=== PATIENT | male | born 1960 | race Two or more races ===

== ENCOUNTER 2018-09-21 14:14 | Inpatient (IN) | payer MEDICAID ==
[~2018-09-21] VITALS: Ht 170.2 cm; Wt 64.6 kg
[2018-09-21] MEDS ORDERED: Thiamine HCl 100 MG in D5W 55 ML IV ONE (14:30)
[2018-09-21] MEDS ORDERED: LORazepam Inj 2mg/ml 1ml IV ONE ×2 (14:30→17:00)
[2018-09-21] MEDS ORDERED: levETIRAcetam 500mg/NS100ml 100 ML IVPB ONE (14:45)
--- NOTE | 2018-09-21 14:54 | Emergency Room Report ---
History of Present Illness General Chief Complaint: Generalized Weakness Source: Patient, EMS Present Illness HPI The patient is brought in by EMS. He's complaining about weakness and tremors. The patient does drink alcohol but stopped on Thursday. He's had withdrawal seizures in the past and is not taking any medication at this time. He also has episodes of vomiting. He denies any hematemesis or coffee-ground emesis. He's been moving his bowels normally and denies melena. He occasionally has epigastric pain but denies this now. The pain in his thighs is rated 6/10 and aching. No radiation. No history of trauma. Allergies: Coded Allergies: No Known Allergies (Unverified , 09/21/18) Patient History Past Medical History: see triage record Social History: Reports: alcohol use Social History Narrative lives with mom Reviewed Nursing Documentation: PMH: Agreed; PSxH: Agreed Nursing Documentation-PM Past Medical History: No Stated History Review of Systems All Other Systems: negative except mentioned in HPI Physical Exam Vital Signs Date Time Temp Pulse Resp B/P (MAP) Pulse Ox O2 Delivery O2 Flow Rate FiO2 09/21/18 14:07 98.4 145 18 142/89 97 Room Air Sp02 EP Interpretation: reviewed, normal General Appearance: well appearing, no apparent distress, GCS 15, non-toxic Head: normocephalic Eyes: bilateral eye normal inspection, bilateral eye PERRL, bilateral eye EOMI ENT: moist mucus membranes Neck: supple Respiratory: lungs clear, normal breath sounds Cardiovascular #1: regular rate, rhythm Cardiovascular #2: 2+ radial (R) Gastrointestinal: normal inspection, normal bowel sounds, non tender, no mass, non-distended Musculoskeletal: back normal, gait/station normal, normal range of motion Neurologic: alert, oriented x3, cellophane tester III-XII nml as tested, motor strength/tone normal, DTRs symmetric, sensory intact, speech normal, other - Tremor Psychiatric: anxious Skin: normal inspection, warm/dry Medical Decision Making Diagnostic Impression: Primary Impression: Alcohol withdrawal Qualified Codes: F10.239 - Alcohol dependence with withdrawal, unspecified Additional Impressions: Alcohol withdrawal seizure Qualified Codes: F10.239 - Alcohol dependence with withdrawal, unspecified; R56.9 - Unspecified convulsions Impending delirium tremons Hyponatremia Thrombocytopenia Pancreatitis Qualified Codes: K85.20 - Alcohol induced acute pancreatitis without necrosis or infection ER Course Patient presents with tremor and weakness after stopping alcohol 3 days ago. Differential includes alcohol withdrawal, impending delirium tremens, electrolyte abnormalities, brain bleed amongst others. Evaluation will be with EKG chest x-ray and labs. The patient retreated with IV hydration, thiamine and Ativan. Patient also complains about leg pain. We need to exclude rhabdomyolysis and renal failure. All the patient was being evaluated the patient had a generalized tonic/clonic seizure. It ended prior to Ativan being given. Ativan was ordered and also Keppra. Because the patient had seizure here a CT of the head is also ordered. EKG without injury. Chest x-ray no infiltrates. CT of the head without bleed. Labs with low sodium. Elevated white count. Platelet count low. Lipase elevated. No infectious etiology identified for elevated white count. Antibiotics not begun. Abdomen is soft and nontender. Patient still tremulous. It appears he is at risk for oriented delirium tremens. Patient is admitted to telemetry under the care of Dr. Melvin. Laboratory Tests Test 09/21/18 15:00 09/21/18 15:05 White Blood Count 15.1 K/UL (4.8-10.8) H Red Blood Count 4.74 M/UL (4.70-6.10) Hemoglobin 11.3 G/DL (14.2-18.0) L Hematocrit 36.7 % (42.0-52.0) L Mean Corpuscular Volume 77 FL (80-99) L Mean Corpuscular Hemoglobin 23.8 PG (27.0-31.0) L Mean Corpuscular Hemoglobin Concent 30.8 G/DL (32.0-36.0) L Red Cell Distribution Width 21.2 % (11.6-14.8) H Platelet Count 89 K/UL (150-450) L Mean Platelet Volume 14.5 FL (6.5-10.1) H Neutrophils (%) (Auto) % (45.0-75.0) Lymphocytes (%) (Auto) % (20.0-45.0) Monocytes (%) (Auto) % (1.0-10.0) Eosinophils (%) (Auto) % (0.0-3.0) Basophils (%) (Auto) % (0.0-2.0) Neutrophils % (Manual) Pending Lymphocytes % (Manual) Pending Platelet Estimate Pending Platelet Morphology Pending Prothrombin Time 12.2 SEC (9.30-11.50) H Prothrombin Time INR 1.2 (0.9-1.1) H PTT 26 SEC (23-33) Sodium Level 122 MMOL/L (136-145) L Potassium Level 3.4 MMOL/L (3.5-5.1) L Chloride Level 83 MMOL/L (98-107) L Carbon Dioxide Level 10 MMOL/L (21-32) L Anion Gap 29 mmol/L (5-15) H Blood Urea Nitrogen 5 mg/dL (7-18) L Creatinine 1.3 MG/DL (0.55-1.30) Estimate Glomerular Filtration Rate 57.1 mL/min (>60) Glucose Level 161 MG/DL (74-106) H Calcium Level 9.5 MG/DL (8.5-10.1) Phosphorus Level 3.9 MG/DL (2.5-4.9) Magnesium Level 2.1 MG/DL (1.8-2.4) Total Bilirubin 2.5 MG/DL (0.2-1.0) H Direct Bilirubin 0.8 MG/DL (0.0-0.3) H Aspartate Amino Transferase (AST) 147 U/L (15-37) H Alanine Aminotransferase (ALT) 86 U/L (12-78) H Alkaline Phosphatase 71 U/L (46-116) Troponin I 0.000 ng/mL (0.000-0.056) Total Protein 8.7 G/DL (6.4-8.2) H Albumin 4.1 G/DL (3.4-5.0) Globulin 4.6 g/dL Albumin/Globulin Ratio 0.9 (1.0-2.7) L Lipase 1124 U/L (73-393) H Salicylates Level < 0.2 ug/mL (2.8-20) L Acetaminophen Level < 2 MCG/ML (10-30) L Serum Alcohol < 3 mg/dL Urine Color Brown Urine Appearance Clear Urine pH 7 (4.5-8.0) Urine Specific [place] 1.010 (1.005-1.035) Urine Protein 2+ (NEGATIVE) H Urine Glucose (UA) Negative (NEGATIVE) Urine Ketones 2+ (NEGATIVE) H Urine Blood 3+ (NEGATIVE) H Urine Nitrite Negative (NEGATIVE) Urine Bilirubin 1+ (NEGATIVE) H Urine Ictotest Negative (NEGATIVE) Urine Urobilinogen 12 MG/DL (0.0-1.0) H Urine Leukocyte Esterase 1+ (NEGATIVE) H Urine RBC 5-10 /HPF (0 - 0) H Urine WBC 2-4 /HPF (0 - 0) Urine Squamous Epithelial Cells None /LPF (NONE/OCC) Urine Amorphous Sediment Few /LPF (NONE) H Urine Bacteria Few /HPF (NONE) Urine Opiates Screen Negative (NEGATIVE) Urine Barbiturates Screen Negative (NEGATIVE) Phencyclidine (PCP) Screen Negative (NEGATIVE) Urine Amphetamines Screen Negative (NEGATIVE) Urine Benzodiazepines Screen Negative (NEGATIVE) Urine Cocaine Screen Negative (NEGATIVE) Urine Marijuana (THC) Screen Negative (NEGATIVE) EKG Diagnostic Results Rate: tachycardiac Rhythm: NSR ST Segments: no acute changes Rhythm Strip Diag. Results EP Interpretation: yes Rhythm: no PVC's, no ectopy, other - Sinus tachycardia Chest X-Ray Diagnostic Results Chest X-Ray Diagnostic Results : Chest X-Ray Ordered: Yes # of Views/Limited/Complete: 1 View Indication: Other EP Interpretation: Yes Interpretation: no consolidation, no effusion, no pneumothorax Impression: No acute disease Electronically Signed by: Electronically signed by Pranav Licona MD CT/MRI/US Diagnostic Results CT/MRI/US Diagnostic Results : Imaging Test Ordered: Head Impression Motion artifact, atrophy with no obvious bleed or mass. Last Vital Signs Date Time Temp Pulse Resp B/P (MAP) Pulse Ox O2 Delivery O2 Flow Rate FiO2 09/22/18 00:00 99.5 93 18 95/64 (74) 99 09/21/18 21:00 Room Air 09/21/18 18:30 4.0 Status: improved Disposition: ADMITTED INPATIENT Condition: Serious Pranav Licona MD Sep 21, 2018 14:54
--- NOTE | 2018-09-21 15:19 | Diagnostic Imaging Report ---
Indication: Dyspnea Comparison: None A single view chest radiograph was obtained. Findings: Cardiomediastinal appearance is within normal limits for age. Aorta is ectatic. The lungs are clear. Pulmonary vascularity is appropriate. The diaphragmatic contour is smooth and costophrenic angles are sharp. No pleural effusions are identified. The bones are unremarkable. Impression: No acute findings
[2018-09-21 15:21] LABS: INR 1.2 (0.9-1.1)
[2018-09-21 15:29] LABS: HEMATOCRIT 36.7 % (42.0-52.0); HEMOGLOBIN 11.3 G/DL (14.2-18.0); MEAN CORPUSCULAR VOLUME 77 FL (80-99); PLATELET COUNT 89 K/UL (150-450); RED BLOOD COUNT 4.74 M/UL (4.70-6.10); RED CELL DISTRIBUTION WIDTH 21.2 % (11.6-14.8); WHITE BLOOD COUNT 15.1 K/UL (4.8-10.8)
[2018-09-21 15:32] VITALS: BP 142/89
[2018-09-21 15:35] LABS: ANION GAP 29 mmol/L (5-15); BLOOD UREA NITROGEN 5 mg/dL (7-18); CALCIUM 9.5 MG/DL (8.5-10.1); CARBON DIOXIDE 10 MMOL/L (21-32); CHLORIDE 83 MMOL/L (98-107); CREATININE 1.3 MG/DL (0.55-1.30); POTASSIUM 3.4 MMOL/L (3.5-5.1); SODIUM 122 MMOL/L (136-145)
--- NOTE | 2018-09-21 15:37 | NUR ---
ED Nurse Note: Pt. AAOx4. brought in by ambulance from home due to generalized weakness with cough X 3days. Pt. had a 2 episodes of sz that lasted [address] Licona notified. padded side rails applied. airway maintained.
[2018-09-21 15:45] LABS: ALANINE AMINOTRANSFERASE 86 U/L (12-78); ALBUMIN 4.1 G/DL (3.4-5.0); ALBUMIN/GLOBULIN RATIO 0.9 (1.0-2.7); ALKALINE PHOSPHATASE 71 U/L (46-116); ASPARTATE AMINO TRANSFERASE 147 U/L (15-37); BILIRUBIN,TOTAL 2.5 MG/DL (0.2-1.0)
[2018-09-21 15:53] LABS: BILIRUBIN,DIRECT 0.8 MG/DL (0.0-0.3)
[2018-09-21 16:10] LABS: APPEARANCE,URINE CLEAR; BILIRUBIN, URINE 1+ (NEGATIVE); COLOR,URINE BROWN; GLUCOSE, URINE (UA) NEGATIVE (NEGATIVE); KETONES,URINE 2+ (NEGATIVE); LEUKOCYTE ESTERASE ,URINE 1+ (NEGATIVE); NITRITE,URINE NEGATIVE (NEGATIVE); PH,URINE 7 (4.5-8.0); PROTEIN,URINE 2+ (NEGATIVE); UROBILINOGEN,URINE 12 MG/DL (0.0-1.0)
[2018-09-21 16:21] LABS: PHOSPHORUS 3.9 MG/DL (2.5-4.9)
--- NOTE | 2018-09-21 16:39 | NUR ---
HAND-OFF: Report given to GWENDOLYN Levine.Endorsed admission process. Patient is in stable condition.
--- NOTE | 2018-09-21 17:08 | Diagnostic Imaging Report ---
Indication: Headache Technique: Contiguous 5 mm thick transaxial imaging of the head obtained in a Siemens Sensation [address] scanner. Soft tissue and bone windows generated. Automatic Exposure Control was utilized. Total Dose length Product (DLP): 1520.[address] Dose Index Volume (CTDIvol): 70.38 mGy Comparison: none Findings: There is mild prominence of the ventricles, basal cisterns, and cerebral sulci consistent with atrophy. Mild, nonspecific, white matter hypoattenuation is noted throughout the brain consistent with chronic small vessel disease. There is no midline shift, edema, acute hemorrhage, mass effect, or abnormal extra-axial fluid collections. Bones and extra osseous soft tissues are unremarkable. There is sclerosis and under pneumatization of the right mastoid bone. Impression: No acute intracranial bleed, mass effect or edema. Mild atrophy of the brain. Nonspecific white matter hypoattenuation probably due to chronic small vessel disease. Right chronic mastoiditis Note: This study is significantly degraded by motion The CT scanner at [facility] is accredited by the [employer] [employer] and the scans are performed using dose optimization techniques as appropriate to a performed exam including Automatic Exposure control.
--- NOTE | 2018-09-21 17:30 | NUR ---
ED Nurse Note: MED SURG NURSE REQUESTING REPORT IN 15MINS.
--- NOTE | 2018-09-21 18:00 | NUR ---
ED Nurse Note: Dr. Melvin at the bedside
[2018-09-21] MEDS ORDERED: NKM (18:15)
[2018-09-21 18:16] VITALS: BP 138/65
--- NOTE | 2018-09-21 18:16 | NUR ---
ED Nurse Note: telephone report given to GWENDOLYN Brannon
--- NOTE | 2018-09-21 18:18 | NUR ---
NURSE NOTES: Received report from GWENDOLYN Shahid in ER.
--- NOTE | 2018-09-21 18:20 | Consultation ---
Consult Note Consult Note asked to eval for low Na The patient is brought in by EMS. He's complaining about weakness and tremors. The patient does drink alcohol but stopped on Thursday. He's had withdrawal seizures in the past and is not taking any medication at this time. He also has episodes of vomiting. He denies any hematemesis or coffee-ground emesis. He's been moving his bowels normally and denies melena. He occasionally has epigastric pain but denies this now. No Known Allergies (Unverified , 09/21/18) Past Medical History: see triage record Social History: Reports: alcohol use Social History Narrative lives with mom Reviewed Nursing Documentation: PMH: Agreed; PSxH: Agreed seen in ER Tachycardic confused Assessment/Plan HypoNatremia Alcoholic liver disease and pancreatitis ETOH Withdraw Sz hydrate librium thiamin monitor lytes and lipase Keppra Folate gastric support Mode Krishnan MD Sep 21, 2018 18:20
[2018-09-21] MEDS ORDERED: chlordiazePOXIDE 25mg Cap ORAL PRN (18:30)
[2018-09-21] MEDS ORDERED: chlordiazePOXIDE 25mg Cap ORAL SCH (18:30)
[2018-09-21 18:40] VITALS: BP 141/70
--- NOTE | 2018-09-21 18:43 | NUR ---
NURSE NOTES: Patient was brought up to TELE Rm [id number] via gurney, denies any pain, no s/s of acute distress noted, monitoring coordinator in place, vital signs taken and recorded. Will endorse admission to the PM shift
--- NOTE | 2018-09-21 19:40 | NUR ---
NURSE NOTES: Received patient from Nikia SNOW. Patient ambulated to the bathroom. Reminded patient to call for help when he needs to go to the bathroom. Assisted patient back in bed. Bed alarm on, bed locked in low position. Side rails padded for seizure precautions. Call light within reach.
[2018-09-21 20:00] VITALS: BP 106/73
--- NOTE | 2018-09-21 20:15 | NUR ---
NURSE NOTES: Patient is still disoriented, does not follow directions. Reminded patient to please use call light for help when he needs to use the bathroom. Librium 50mg PO x1 administered for alcohol withdrawal, patient has mild tremors. Keppra 500mg IV started via left forearm PIV 20 gauge, dressing intact, patent, no s/s of infiltration. Patient on remains on fall precaution and seizure precautions. Side rails padded. Bed in low position, locked, bed alarm on. Call light within reach. Will monitor closely.
[2018-09-21] MEDS: D5NS w/KCl 40mEq 1000ml 1,000 ML IV SCH (20:18)
[2018-09-21] MEDS: levETIRAcetam 500mg/NS100ml 100 ML IVPB SCH (20:26)
[2018-09-21] MEDS ORDERED: Acetaminophen 500mg (ES) tab ORAL PRN (21:45)
[2018-09-21] MEDS: Piperacillin/Tazobactam 3.375 GM in NS 110 ML IVPB SCH (22:43)
--- NOTE | 2018-09-21 22:57 | Consultation ---
History of Present Illness General Date patient seen: Sep 21, 2018 Chief Complaint: AMS/ Weakness Referring physician: Dr. Nitesh Osullivan Present Illness HPI Jasbir Guadarrama is a 58 y old male brought in by EMS in apparent alcohol withdrawal complaining about weakness, tremors and vomiting. He reports that he 's had withdrawal seizures in the past and is not taking any medication at this time. He denies any hematemesis or coffee-ground emesis. He is very drowsy at the time of our exam but has full strength in all extremities. He is however confused about the place, date and circumstances. Allergies: Coded Allergies: No Known Allergies (Unverified , 09/21/18) Medication History Scheduled No Known Medications* (NKM - No Known Medications*), 0 ., (Reported) Patient History Healthcare decision maker Resuscitation status Advanced Directive on File Review of Systems All Other Systems: negative except mentioned in HPI Physical Exam General Appearance: WD/WN, no apparent distress, lethargic, confused Lines, tubes and drains: peripheral HEENT: normocephalic, atraumatic, anicteric, mucous membranes moist, PERRL Neck: normal alignment, supple Cardiovascular/Chest: normal peripheral pulses, normal rate, no JVD Abdomen: soft Extremities: normal range of motion, non-tender, normal inspection, no calf tenderness, normal capillary refill, non-pitting, no edema, no cyanosis Skin Exam: normal pigmentation, warm/dry Neurologic: cattyman II-XII grossly normal, no motor/sensory deficits, responsive, disoriented, depressed affect Last 24 Hour Vital Signs Date Time Temp Pulse Resp B/P (MAP) Pulse Ox O2 Delivery O2 Flow Rate FiO2 09/21/18 20:00 100.0 113 18 106/73 (84) 93 09/21/18 18:40 98.2 114 18 141/70 (93) 97 09/21/18 18:30 98.4 130 22 138/65 95 Room Air 4.0 09/21/18 18:16 98.4 130 22 138/65 95 Room Air 09/21/18 16:20 113 20 94 Nasal Cannula 4.0 09/21/18 15:32 98.4 145 18 142/89 97 Room Air 09/21/18 15:32 145 18 Room Air 09/21/18 14:07 98.4 145 18 142/89 97 Room Air Laboratory Tests Test 09/21/18 15:00 09/21/18 15:05 White Blood Count 15.1 K/UL (4.8-10.8) H Red Blood Count 4.74 M/UL (4.70-6.10) Hemoglobin 11.3 G/DL (14.2-18.0) L Hematocrit 36.7 % (42.0-52.0) L Mean Corpuscular Volume 77 FL (80-99) L Mean Corpuscular Hemoglobin 23.8 PG (27.0-31.0) L Mean Corpuscular Hemoglobin Concent 30.8 G/DL (32.0-36.0) L Red Cell Distribution Width 21.2 % (11.6-14.8) H Platelet Count 89 K/UL (150-450) L Mean Platelet Volume 14.5 FL (6.5-10.1) H Neutrophils (%) (Auto) % (45.0-75.0) Lymphocytes (%) (Auto) % (20.0-45.0) Monocytes (%) (Auto) % (1.0-10.0) Eosinophils (%) (Auto) % (0.0-3.0) Basophils (%) (Auto) % (0.0-2.0) Differential Total Cells Counted 100 Neutrophils % (Manual) 70 % (45-75) Lymphocytes % (Manual) 11 % (20-45) L Monocytes % (Manual) 14 % (1-10) H Eosinophils % (Manual) 2 % (0-3) Basophils % (Manual) 1 % (0-2) Band Neutrophils 2 % (0-8) Platelet Estimate Decreased L Platelet Morphology Normal Hypochromasia 1+ Anisocytosis 1+ Prothrombin Time 12.2 SEC (9.30-11.50) H Prothromb Time International Ratio 1.2 (0.9-1.1) H Activated Partial Thromboplast Time 26 SEC (23-33) Sodium Level 122 MMOL/L (136-145) L Potassium Level 3.4 MMOL/L (3.5-5.1) L Chloride Level 83 MMOL/L (98-107) L Carbon Dioxide Level 10 MMOL/L (21-32) L Anion Gap 29 mmol/L (5-15) H Blood Urea Nitrogen 5 mg/dL (7-18) L Creatinine 1.3 MG/DL (0.55-1.30) Estimat Glomerular Filtration Rate 57.1 mL/min (>60) Glucose Level 161 MG/DL (74-106) H Calcium Level 9.5 MG/DL (8.5-10.1) Phosphorus Level 3.9 MG/DL (2.5-4.9) Magnesium Level 2.1 MG/DL (1.8-2.4) Total Bilirubin 2.5 MG/DL (0.2-1.0) H Direct Bilirubin 0.8 MG/DL (0.0-0.3) H Aspartate Amino Transf (AST/SGOT) 147 U/L (15-37) H Alanine Aminotransferase (ALT/SGPT) 86 U/L (12-78) H Alkaline Phosphatase 71 U/L (46-116) Troponin I 0.000 ng/mL (0.000-0.056) Total Protein 8.7 G/DL (6.4-8.2) H Albumin 4.1 G/DL (3.4-5.0) Globulin 4.6 g/dL Albumin/Globulin Ratio 0.9 (1.0-2.7) L Lipase 1124 U/L (73-393) H Salicylates Level < 0.2 ug/mL (2.8-20) L Acetaminophen Level < 2 MCG/ML (10-30) L Serum Alcohol < 3 mg/dL Urine Color Brown Urine Appearance Clear Urine pH 7 (4.5-8.0) Urine Specific [place] 1.010 (1.005-1.035) Urine Protein 2+ (NEGATIVE) H Urine Glucose (UA) Negative (NEGATIVE) Urine Ketones 2+ (NEGATIVE) H Urine Blood 3+ (NEGATIVE) H Urine Nitrite Negative (NEGATIVE) Urine Bilirubin 1+ (NEGATIVE) H Urine Ictotest Negative (NEGATIVE) Urine Urobilinogen 12 MG/DL (0.0-1.0) H Urine Leukocyte Esterase 1+ (NEGATIVE) H Urine RBC 5-10 /HPF (0 - 0) H Urine WBC 2-4 /HPF (0 - 0) Urine Squamous Epithelial Cells None /LPF (NONE/OCC) Urine Amorphous Sediment Few /LPF (NONE) H Urine Bacteria Few /HPF (NONE) Urine Opiates Screen Negative (NEGATIVE) Urine Barbiturates Screen Negative (NEGATIVE) Phencyclidine (PCP) Screen Negative (NEGATIVE) Urine Amphetamines Screen Negative (NEGATIVE) Urine Benzodiazepines Screen Negative (NEGATIVE) Urine Cocaine Screen Negative (NEGATIVE) Urine Marijuana (THC) Screen Negative (NEGATIVE) Height (Feet): 5 Height (Inches): 7.00 Weight (Pounds): 155 Medications Current Medications Medications (Trade) Dose Ordered Sig/Socrates Route PRN Reason Start Time Stop Time Status Last Admin Dose Admin Acetaminophen (Tylenol) 500 mg Q6H PRN ORAL Mild Pain/Temp of 100.0/higher 09/21/18 21:45 10/21/18 21:44 Chlordiazepoxide (Librium) 25 mg Q6H PRN ORAL Agitation 09/21/18 18:30 09/28/18 18:29 Dextrose/ Electrolytes 1,000 ml @ 100 mls/hr Q10H IV 09/21/18 18:30 10/21/18 18:29 09/21/18 20:18 Famotidine (Pepcid I.v.) 20 mg Q12HR IVP 09/21/18 21:00 10/21/18 20:59 09/21/18 20:42 Folic Acid (Folate) 2 mg DAILY ORAL 09/22/18 09:00 10/22/18 08:59 Levetiracetam 100 ml @ 400 mls/hr Q12HR IVPB 09/21/18 21:00 10/21/18 20:59 09/21/18 20:26 Ondansetron HCl (Zofran) 4 mg Q6H PRN IVP Nausea & Vomiting 09/21/18 20:30 10/21/18 20:29 Piperacillin Sod/ Tazobactam Sod 3.375 gm/Sodium Chloride 110 ml @ 27.5 mls/hr EVERY 8 HOURS IVPB 09/21/18 22:00 09/26/18 21:59 09/21/18 22:43 Assessment/Plan Problem List: (1) Hyponatremia ICD Codes: E87.1 - Hypo-osmolality and hyponatremia SNOMED: 50775708 (2) Alcohol withdrawal seizure ICD Codes: F10.239 - Alcohol dependence with withdrawal, unspecified; R56.9 - Unspecified convulsions SNOMED: 050694447 Qualifiers: Qualified Codes: F10.239 - Alcohol dependence with withdrawal, unspecified; R56.9 - Unspecified convulsions (3) Alcoholic hepatitis ICD Codes: K70.10 - Alcoholic hepatitis without ascites SNOMED: 738058592 (4) Alcoholic pancreatitis ICD Codes: K85.20 - Alcohol induced acute pancreatitis without necrosis or infection SNOMED: 578206923 (5) Alcohol withdrawal ICD Codes: F10.239 - Alcohol dependence with withdrawal, unspecified SNOMED: 922729876 Qualifiers: Qualified Codes: F10.239 - Alcohol dependence with withdrawal, unspecified (6) Pancreatitis ICD Codes: K85.90 - Acute pancreatitis without necrosis or infection, unspecified SNOMED: 81475251 Qualifiers: Qualified Codes: K85.20 - Alcohol induced acute pancreatitis without necrosis or infection Assessment/Plan: 1. Acute Toxic Metabolic Encephalopathy 2. Alcohol W/D 3. Hypothyroidism 4. Hyponatremia Recs: CIWA protocol - If score > 8 - 1mg Ativan Q3 hrs PRN for agitation and withdrawal symptoms. Banana Bag- Thiamine and Folate supplementation 3% Na Bolusing slowly to increase serum sodium. Restrict free water to 1 L per day, rest IVF. Track Trend LFTS/ Ammonia Consider adding Lactulose for improved hepatobiliary excretion Correct Thyroid as per PM/ Endo recs - Levothyroxine supplementation at 1.6mcg/ kg Q 4 Hour neuro obs- Maintain sleep hygiene by making room dark and quiet in the evening. Frequently reorient the patient, if confused Encourage family/ friend visits Soraya Donis N.P. Sep 21, 2018 22:57
[2018-09-22] VITALS: BP 95/64
[2018-09-22 04:00] VITALS: BP 140/63
--- NOTE | 2018-09-22 04:00 | NUR ---
NURSE NOTES: Pt keeps trying to get out of bed every 5-10 minutes. Pt wants to leave and wants to pull out his IV. Keep reorienting patient to location and why he is here and why he can't leave.
[2018-09-22] MEDS: D5NS w/KCl 40mEq 1000ml 1,000 ML IV SCH ×2 (05:13→14:18)
[2018-09-22] MEDS: Piperacillin/Tazobactam 3.375 GM in NS 110 ML IVPB SCH ×3 (05:13→21:49)
--- NOTE | 2018-09-22 06:20 | NUR ---
NURSE NOTES: Spoke to Dr. Melvin about pt behavior. Pt is trying to stand up and leave every 5-10 minutes. He says he has to go to work, but cannnot tell us where he works. He also cannot tell us anyone we can call for him, no family, no friends. Whenever he stands up, he is very unsteady and almost falls. Pt is getting very upset that he can't leave. Dr. Melvin ordered 1:1 sitter and to call Dr. Burr about pt's behavior.
[2018-09-22 06:41] LABS: HEMATOCRIT 31.7 % (42.0-52.0); HEMOGLOBIN 9.8 G/DL (14.2-18.0); MEAN CORPUSCULAR VOLUME 77 FL (80-99); PLATELET COUNT 70 K/UL (150-450); RED BLOOD COUNT 4.14 M/UL (4.70-6.10); RED CELL DISTRIBUTION WIDTH 21.5 % (11.6-14.8)
[2018-09-22 06:59] LABS: AMMONIA 26 umol/L (11-32)
--- NOTE | 2018-09-22 07:10 | NUR ---
HAND-OFF: Report given to Nikia SNOW. Plan of care endorsed, patient in stable condition.
--- NOTE | 2018-09-22 07:10 | NUR ---
NURSE NOTES: Received report and patient from Sayra, GWENDOLYN in bed, denies any pain at this time, no s/s of sob or any acute distress noted, Patient complain of loosing her robe, explained to her that the outgoing nurse has started the process to look for her robe, also that I will follow up and update her as the day goes on. Bed is in lowest position, brakes engaged for safety. Call light is within reach. Will continue with the plan of care. Addendum: 09/22/18 at 1831 by HERLINDA LEWIS RN wrong patient.
--- NOTE | 2018-09-22 07:10 | NUR ---
NURSE NOTES: Received patient from Brandon RN's in bed agitated, confused, pulling equipments and trying to get out of bed, reoriented patient, talk with patient, but continues to pull things, got out of bed, total fall risk. Patient pulled IV out, will insert another one. Patient was carried back to bed. Bed is in lowest position, brakes engaged for safety, call light is within reach. Will continue to monitor for safety and continue with the plan of care.
[2018-09-22 07:20] LABS: ALANINE AMINOTRANSFERASE 75 U/L (12-78); ALBUMIN 3.3 G/DL (3.4-5.0); ALBUMIN/GLOBULIN RATIO 0.8 (1.0-2.7); ALKALINE PHOSPHATASE 53 U/L (46-116); ANION GAP 10 mmol/L (5-15); ASPARTATE AMINO TRANSFERASE 135 U/L (15-37); BILIRUBIN,TOTAL 2.6 MG/DL (0.2-1.0); BLOOD UREA NITROGEN 4 mg/dL (7-18); CALCIUM 8.4 MG/DL (8.5-10.1); CARBON DIOXIDE 23 MMOL/L (21-32); CHLORIDE 97 MMOL/L (98-107); CHOLESTEROL 116 MG/DL (< 200); CREATINE KINASE 1869 U/L (26-308); FERRITIN 48 NG/ML (8-388); GAMMA GLUTAMYL TRANSPEPTIDASE 466 U/L (5-85); HDL CHOLESTEROL 44 MG/DL (40-60); PHOSPHORUS 2.1 MG/DL (2.5-4.9); POTASSIUM 3.6 MMOL/L (3.5-5.1); SODIUM 130 MMOL/L (136-145); TRIGLYCERIDES 74 MG/DL (30-150)
[2018-09-22 07:25] LABS: BILIRUBIN,DIRECT 1.2 MG/DL (0.0-0.3)
[2018-09-22 07:35] LABS: % IRON SATURATION 15 % (15-50); IRON 41 ug/dL (50-175); TOTAL IRON BINDING CAPACITY 281 ug/dL (250-450)
[2018-09-22 08:00] VITALS: BP 115/69
--- NOTE | 2018-09-22 08:30 | NUR ---
NEW IV IN PLACE ON RIGHT HAND
[2018-09-22] MEDS ORDERED: LORazepam Inj 2mg/ml 1ml IV PRN ×2 (08:45)
[2018-09-22] MEDS: LORazepam Inj 2mg/ml 1ml IV PRN ×2 (09:04→21:46)
[2018-09-22] MEDS: levETIRAcetam 500mg/NS100ml 100 ML IVPB SCH ×2 (09:05→21:48)
--- NOTE | 2018-09-22 09:15 | NUR ---
NURSE NOTES: PATIENT REMOVED IV , VERY CONFUSED, AGITATED, PULLING, AND TRYING TO GET OUT OF BED, MD AWARE. WILL CONTINUE TO MONITOR.
[2018-09-22] MEDS ORDERED: Potassium Phosphate 20 MM in NS 275 ML IV SCH (10:00)
--- NOTE | 2018-09-22 10:08 | Nephrology Progress Note ---
Assessment/Plan Problem List: (1) Hyponatremia (2) Pancreatitis (3) Alcohol withdrawal seizure (4) Anemia Assessment HypoNatremia Alcoholic liver disease and pancreatitis ETOH Withdraw Sz Plan hydrate librium thiamin monitor lytes and lipase Keppra Folate gastric support Subjective ROS Limited/Unobtainable: No Objective Objective Last 24 Hour Vital Signs Date Time Temp Pulse Resp B/P (MAP) Pulse Ox O2 Delivery O2 Flow Rate FiO2 09/22/18 04:00 91 09/22/18 04:00 98.7 7 18 140/63 (88) 98 09/22/18 00:00 99.5 93 18 95/64 (74) 99 09/22/18 00:00 100 09/21/18 21:00 Room Air 09/21/18 20:00 111 09/21/18 20:00 100.0 113 18 106/73 (84) 93 09/21/18 18:40 98.2 114 18 141/70 (93) 97 09/21/18 18:30 98.4 130 22 138/65 95 Room Air 4.0 09/21/18 18:16 98.4 130 22 138/65 95 Room Air 09/21/18 16:20 113 20 94 Nasal Cannula 4.0 09/21/18 15:32 98.4 145 18 142/89 97 Room Air 09/21/18 15:32 145 18 Room Air 09/21/18 14:07 98.4 145 18 142/89 97 Room Air Intake and Output 09/21/18 09/22/18 18:59 06:59 Intake Total 1085 ml Balance 1085 ml Intake IV Total 1085 ml # Voids 1 10 Laboratory Tests 09/21/18 15:00: White Blood Count 15.1H, Red Blood Count 4.74, Hemoglobin 11.3L, Hematocrit 36.7L, Mean Corpuscular Volume 77L, Mean Corpuscular Hemoglobin 23.8L, Mean Corpuscular Hemoglobin Concent 30.8L, Red Cell Distribution Width 21.2H, Platelet Count 89L, Mean Platelet Volume 14.5H, Neutrophils (%) (Auto) , Lymphocytes (%) (Auto) , Monocytes (%) (Auto) , Eosinophils (%) (Auto) , Basophils (%) (Auto) , Differential Total Cells Counted 100, Neutrophils % ( Manual) 70, Lymphocytes % (Manual) 11L, Monocytes % (Manual) 14H, Eosinophils % (Manual) 2, Basophils % (Manual) 1, Band Neutrophils 2, Platelet Estimate DecreasedL, Platelet Morphology Normal, Hypochromasia 1+, Anisocytosis 1+, Prothrombin Time 12.2H, Prothromb Time International Ratio 1.2H, Activated Partial Thromboplast Time 26, Sodium Level 122L, Potassium Level 3.4L, Chloride Level 83L, Carbon Dioxide Level 10L, Anion Gap 29H, Blood Urea Nitrogen 5L, Creatinine 1.3, Estimat Glomerular Filtration Rate 57.1, Glucose Level 161H, Calcium Level 9.5, Phosphorus Level 3.9, Magnesium Level 2.1, Total Bilirubin 2.5H, Direct Bilirubin 0.8H, Aspartate Amino Transf (AST/SGOT) 147H, Alanine Aminotransferase (ALT/SGPT) 86H, Alkaline Phosphatase 71, Troponin I 0.000, Total Protein 8.7H, Albumin 4.1, Globulin 4.6, Albumin/Globulin Ratio 0.9L, Lipase 1124H, Salicylates Level < 0.2L, Acetaminophen Level < 2L, Serum Alcohol < 3 09/21/18 15:05: Urine Color Brown, Urine Appearance Clear, Urine pH 7, Urine Specific [place] 1.010, Urine Protein 2+H, Urine Glucose (UA) Negative, Urine Ketones 2+H, Urine Blood 3+H, Urine Nitrite Negative, Urine Bilirubin 1+H, Urine Ictotest Negative , Urine Urobilinogen 12H, Urine Leukocyte Esterase 1+H, Urine RBC 5-10H, Urine WBC 2-4, Urine Squamous Epithelial Cells None, Urine Amorphous Sediment FewH, Urine Bacteria Few, Urine Opiates Screen Negative, Urine Barbiturates Screen Negative, Phencyclidine (PCP) Screen Negative, Urine Amphetamines Screen Negative, Urine Benzodiazepines Screen Negative, Urine Cocaine Screen Negative, Urine Marijuana (THC) Screen Negative 09/22/18 06:14: White Blood Count 12.0H, Red Blood Count 4.14L, Hemoglobin 9.8L, Hematocrit 31.7L, Mean Corpuscular Volume 77L, Mean Corpuscular Hemoglobin 23.6L, Mean Corpuscular Hemoglobin Concent 30.8L, Red Cell Distribution Width 21.5H, Platelet Count 70L, Mean Platelet Volume 15.8H, Neutrophils (%) (Auto) , Lymphocytes (%) (Auto) , Monocytes (%) (Auto) , Eosinophils (%) (Auto) , Basophils (%) (Auto) , Differential Total Cells Counted 100, Neutrophils % ( Manual) 84H, Lymphocytes % (Manual) 5L, Monocytes % (Manual) 11H, Eosinophils % (Manual) 0, Basophils % (Manual) 0, Band Neutrophils 0, Platelet Estimate DecreasedL, Platelet Morphology Normal, Hypochromasia 1+, Anisocytosis 2+, Sodium Level 130L, Potassium Level 3.6, Chloride Level 97L, Carbon Dioxide Level 23, Anion Gap 10, Blood Urea Nitrogen 4L, Creatinine 1.0, Estimat Glomerular Filtration Rate > 60, Glucose Level 99, Calcium Level 8.4L, Phosphorus Level 2.1L, Magnesium Level 2.3, Total Bilirubin 2.6H, Direct Bilirubin 1.2H, Aspartate Amino Transf (AST/SGOT) 135H, Alanine Aminotransferase (ALT/SGPT) 75, Alkaline Phosphatase 53, Total Protein 7.4, Albumin 3.3L, Globulin 4.1, Albumin/Globulin Ratio 0.8L, Lipase 521H, Microcytosis 1+, Hemoglobin A1c 5.5, Uric Acid 3.0, Iron Level 41L, Total Iron Binding Capacity 281, Percent Iron Saturation 15, Unsaturated Iron Binding 240, Ferritin 48, Gamma Glutamyl Transpeptidase 466H, Ammonia 26, Total Creatine Kinase 1869H, C-Reactive Protein, Quantitative 3.3H, Pro-B-Type Natriuretic Peptide 370H, Triglycerides Level 74, Cholesterol Level 116, LDL Cholesterol 63 , HDL Cholesterol 44, Cholesterol/HDL Ratio 2.6L, Vitamin B12 Level 834, Folate 7.1L, Thyroid Stimulating Hormone (TSH) 4.007H Height (Feet): 5 Height (Inches): 7.00 Weight (Pounds): 150 General Appearance: agitated Cardiovascular: tachycardia Respiratory/Chest: decreased breath sounds Abdomen: distended Mode Krishnan MD September 22, 2018 10:08
[2018-09-22] MEDS ORDERED: Propranolol 10mg tab ORAL SCH (10:15)
[2018-09-22] MEDS ORDERED: LORazepam Inj 2mg/ml 1ml IV SCH (10:15)
--- NOTE | 2018-09-22 10:23 | GI Initial Consult Note ---
History of Present Illness General Date patient seen: September 22, 2018 Time patient seen: 10:17 Reason for Hospitalization: Generalized Weakness Referring physician: PAT KIM Reason for Consultation: Alcoholic hepatitis Present Illness HPI The patient is brought in by EMS. He's complaining about weakness and tremors. The patient does drink alcohol but stopped on Thursday. He's had withdrawal seizures in the past and is not taking any medication at this time. He also has episodes of vomiting. He denies any hematemesis or coffee-ground emesis. He's been moving his bowels normally and denies melena. He occasionally has epigastric pain but denies this now. The pain in his thighs is rated 6/10 and aching. No radiation. No history of trauma. GI consulted for alcoholic hepatitis and pancreatitis. ROS limited, patient is agitated unable to provide any history at this time. Labs reviewed; hemoglobin 9.8, INR 1.2, AST 466, ALT 135, total bilirubin 2.6, lipase level 500 +, folate level within 1.1. Unknown history of endoscopic colonoscopy at this time. Home Meds Reported Medications No Known Medications* (NKM - No Known Medications*) ., 0 ., 0 Refills 09/21/18 Med list reviewed/reconciled: Yes Allergies: Coded Allergies: No Known Allergies (Unverified , 09/21/18) Patient History Limited by: medical condition History Provided By: Medical Record PM Narrative Past Medical History: see triage record Social History: Reports: alcohol use Social History Narrative lives with mom Reviewed Nursing Documentation: PMH: Agreed; PSxH: Agreed Nursing Documentation-[facility] Past Medical History: No Stated History Social History: Reports: alcohol use Review of Systems All Other Systems: negative except mentioned in HPI Physical Exam Vital Signs Date Time Temp Pulse Resp B/P (MAP) Pulse Ox O2 Delivery O2 Flow Rate FiO2 09/21/18 14:07 98.4 145 18 142/89 97 Room Air 09/21/18 16:20 4.0 Sp02 EP Interpretation: reviewed, normal Labs Laboratory Tests Test 09/21/18 15:00 09/21/18 15:05 09/22/18 06:14 White Blood Count 15.1 K/UL (4.8-10.8) H 12.0 K/UL (4.8-10.8) H Red Blood Count 4.74 M/UL (4.70-6.10) 4.14 M/UL (4.70-6.10) L Hemoglobin 11.3 G/DL (14.2-18.0) L 9.8 G/DL (14.2-18.0) L Hematocrit 36.7 % (42.0-52.0) L 31.7 % (42.0-52.0) L Mean Corpuscular Volume 77 FL (80-99) L 77 FL (80-99) L Mean Corpuscular Hemoglobin 23.8 PG (27.0-31.0) L 23.6 PG (27.0-31.0) L Mean Corpuscular Hemoglobin Concent 30.8 G/DL (32.0-36.0) L 30.8 G/DL (32.0-36.0) L Red Cell Distribution Width 21.2 % (11.6-14.8) H 21.5 % (11.6-14.8) H Platelet Count 89 K/UL (150-450) L 70 K/UL (150-450) L Mean Platelet Volume 14.5 FL (6.5-10.1) H 15.8 FL (6.5-10.1) H Neutrophils (%) (Auto) % (45.0-75.0) % (45.0-75.0) Lymphocytes (%) (Auto) % (20.0-45.0) % (20.0-45.0) Monocytes (%) (Auto) % (1.0-10.0) % (1.0-10.0) Eosinophils (%) (Auto) % (0.0-3.0) % (0.0-3.0) Basophils (%) (Auto) % (0.0-2.0) % (0.0-2.0) Differential Total Cells Counted 100 100 Neutrophils % (Manual) 70 % (45-75) 84 % (45-75) H Lymphocytes % (Manual) 11 % (20-45) L 5 % (20-45) L Monocytes % (Manual) 14 % (1-10) H 11 % (1-10) H Eosinophils % (Manual) 2 % (0-3) 0 % (0-3) Basophils % (Manual) 1 % (0-2) 0 % (0-2) Band Neutrophils 2 % (0-8) 0 % (0-8) Platelet Estimate Decreased L Decreased L Platelet Morphology Normal Normal Hypochromasia 1+ 1+ Anisocytosis 1+ 2+ Prothrombin Time 12.2 SEC (9.30-11.50) H Prothromb Time International Ratio 1.2 (0.9-1.1) H Activated Partial Thromboplast Time 26 SEC (23-33) Sodium Level 122 MMOL/L (136-145) L 130 MMOL/L (136-145) L Potassium Level 3.4 MMOL/L (3.5-5.1) L 3.6 MMOL/L (3.5-5.1) Chloride Level 83 MMOL/L (98-107) L 97 MMOL/L (98-107) L Carbon Dioxide Level 10 MMOL/L (21-32) L 23 MMOL/L (21-32) Anion Gap 29 mmol/L (5-15) H 10 mmol/L (5-15) Blood Urea Nitrogen 5 mg/dL (7-18) L 4 mg/dL (7-18) L Creatinine 1.3 MG/DL (0.55-1.30) 1.0 MG/DL (0.55-1.30) Estimat Glomerular Filtration Rate 57.1 mL/min (>60) > 60 mL/min (>60) Glucose Level 161 MG/DL (74-106) H 99 MG/DL (74-106) Calcium Level 9.5 MG/DL (8.5-10.1) 8.4 MG/DL (8.5-10.1) L Phosphorus Level 3.9 MG/DL (2.5-4.9) 2.1 MG/DL (2.5-4.9) L Magnesium Level 2.1 MG/DL (1.8-2.4) 2.3 MG/DL (1.8-2.4) Total Bilirubin 2.5 MG/DL (0.2-1.0) H 2.6 MG/DL (0.2-1.0) H Direct Bilirubin 0.8 MG/DL (0.0-0.3) H 1.2 MG/DL (0.0-0.3) H Aspartate Amino Transf (AST/SGOT) 147 U/L (15-37) H 135 U/L (15-37) H Alanine Aminotransferase (ALT/SGPT) 86 U/L (12-78) H 75 U/L (12-78) Alkaline Phosphatase 71 U/L (46-116) 53 U/L (46-116) Troponin I 0.000 ng/mL (0.000-0.056) Total Protein 8.7 G/DL (6.4-8.2) H 7.4 G/DL (6.4-8.2) Albumin 4.1 G/DL (3.4-5.0) 3.3 G/DL (3.4-5.0) L Globulin 4.6 g/dL 4.1 g/dL Albumin/Globulin Ratio 0.9 (1.0-2.7) L 0.8 (1.0-2.7) L Lipase 1124 U/L (73-393) H 521 U/L (73-393) H Salicylates Level < 0.2 ug/mL (2.8-20) L Acetaminophen Level < 2 MCG/ML (10-30) L Serum Alcohol < 3 mg/dL Urine Color Brown Urine Appearance Clear Urine pH 7 (4.5-8.0) Urine Specific [place] 1.010 (1.005-1.035) Urine Protein 2+ (NEGATIVE) H Urine Glucose (UA) Negative (NEGATIVE) Urine Ketones 2+ (NEGATIVE) H Urine Blood 3+ (NEGATIVE) H Urine Nitrite Negative (NEGATIVE) Urine Bilirubin 1+ (NEGATIVE) H Urine Ictotest Negative (NEGATIVE) Urine Urobilinogen 12 MG/DL (0.0-1.0) H Urine Leukocyte Esterase 1+ (NEGATIVE) H Urine RBC 5-10 /HPF (0 - 0) H Urine WBC 2-4 /HPF (0 - 0) Urine Squamous Epithelial Cells None /LPF (NONE/OCC) Urine Amorphous Sediment Few /LPF (NONE) H Urine Bacteria Few /HPF (NONE) Urine Opiates Screen Negative (NEGATIVE) Urine Barbiturates Screen Negative (NEGATIVE) Phencyclidine (PCP) Screen Negative (NEGATIVE) Urine Amphetamines Screen Negative (NEGATIVE) Urine Benzodiazepines Screen Negative (NEGATIVE) Urine Cocaine Screen Negative (NEGATIVE) Urine Marijuana (THC) Screen Negative (NEGATIVE) Microcytosis 1+ Hemoglobin A1c 5.5 % (4.3-6.0) Uric Acid 3.0 MG/DL (2.6-7.2) Iron Level 41 ug/dL (50-175) L Total Iron Binding Capacity 281 ug/dL (250-450) Percent Iron Saturation 15 % (15-50) Unsaturated Iron Binding 240 ug/dL (112-346) Ferritin 48 NG/ML (8-388) Gamma Glutamyl Transpeptidase 466 U/L (5-85) H Ammonia 26 umol/L (11-32) Total Creatine Kinase 1869 U/L (26-308) H C-Reactive Protein, Quantitative 3.3 mg/dL (0.00-0.90) H Pro-B-Type Natriuretic Peptide 370 pg/mL (0-125) H Triglycerides Level 74 MG/DL (30-150) Cholesterol Level 116 MG/DL (< 200) LDL Cholesterol 63 mg/dL (<100) HDL Cholesterol 44 MG/DL (40-60) Cholesterol/HDL Ratio 2.6 (3.3-4.4) L Vitamin B12 Level 834 PG/ML (193-986) Folate 7.1 NG/ML (8.6-58.9) L Thyroid Stimulating Hormone (TSH) 4.007 uiU/mL (0.358-3.740) General Appearance: well appearing, no apparent distress, alert Head: normocephalic EENT: PERRL/EOMI, normal ENT inspection Neck: supple Respiratory: normal breath sounds, no respiratory distress Cardiovascular: normal rate Gastrointestinal: normal inspection, non tender, soft, normal bowel sounds, non -distended Rectal: deferred Genitourinary: deferred Musculoskeletal: normal inspection, back normal Neurologic: normal inspection, alert, oriented x3, responsive Psychiatric: normal inspection, judgement/insight normal, memory normal Skin: normal inspection, normal color, no rash, warm/dry, palpation normal, well hydrated Lymphatic: normal inspection, no adenopathy Current Medications Current Medications Medications (Trade) Dose Ordered Sig/Socrates Route PRN Reason Start Time Stop Time Status Last Admin Dose Admin Acetaminophen (Tylenol) 500 mg Q6H PRN ORAL Mild Pain/Temp of 100.0/higher 09/21/18 21:45 10/21/18 21:44 Chlordiazepoxide (Librium) 25 mg Q6H ORAL 09/22/18 12:30 09/28/18 18:29 Dextrose/ Electrolytes 1,000 ml @ 100 mls/hr Q10H IV 09/21/18 18:30 10/21/18 18:29 09/22/18 05:13 Famotidine (Pepcid I.v.) 20 mg Q12HR IVP 09/21/18 21:00 10/21/18 20:59 09/21/18 20:42 Folic Acid (Folate) 2 mg DAILY ORAL 09/22/18 09:00 10/22/18 08:59 09/22/18 09:04 Levetiracetam 100 ml @ 400 mls/hr Q12HR IVPB 09/21/18 21:00 10/21/18 20:59 09/22/18 09:05 Lorazepam (Ativan 2mg/ml 1ml) 2 mg ONCE IV 09/22/18 10:15 09/22/18 11:00 Lorazepam (Ativan 2mg/ml 1ml) 2 mg Q2H PRN IV for agitation 09/22/18 08:45 09/29/18 08:44 09/22/18 09:04 Ondansetron HCl (Zofran) 4 mg Q6H PRN IVP Nausea & Vomiting 09/21/18 20:30 10/21/18 20:29 Piperacillin Sod/ Tazobactam Sod 3.375 gm/Sodium Chloride 110 ml @ 27.5 mls/hr EVERY 8 HOURS IVPB 09/21/18 22:00 09/26/18 21:59 09/22/18 05:13 Potassium Phosphate 20 mm/ Sodium Chloride 281.6667 ml @ 46.944 m... ONCE IV 09/22/18 10:00 09/22/18 16:00 Propranolol HCl (Inderal) 10 mg ONCE ORAL 09/22/18 10:15 09/22/18 11:00 Propranolol HCl (Inderal) 10 mg Q8HR ORAL 09/22/18 14:00 10/22/18 13:59 GI: Plan Problems: (1) Alcoholic pancreatitis (2) Alcoholic hepatitis (3) Alcohol withdrawal (4) Thrombocytopenia (5) Anemia Plan Discriminant function calculated, no need for glucocorticoid therapy. Advance diet as tolerated Ativan as needed Folate anemia work up OB stool r/o GI bleed monitor H&H, prn transfusions bowel regime ppi fu labs avoid alcohol trend LFTs, lipase Discussed with Dr. Wright. Thank you for this patient referral, we will follow. The patient was seen and examined at bedside and all new and available data was reviewed in the patients chart. I agree with the above findings, impression and plan. (Patient seen earlier today. Signature stamp does not reflect patient encounter time.). - MD Jose Rafael St[facility]uyotiliaAur[facility] HospitalMoraMontana GANGA September 22, 2018 10:23
--- NOTE | 2018-09-22 11:00 | NUR ---
NURSE NOTES: PATIENT CONTINUES TO BE AGITATED AND TRYING TO GET OUT OF BED.
[2018-09-22 12:00] VITALS: BP 118/69
[2018-09-22] MEDS ORDERED: chlordiazePOXIDE 25mg Cap ORAL SCH ×2 (12:30→13:15)
--- NOTE | 2018-09-22 12:55 | NUR ---
CASE MANAGEMENT:REVIEW 58 YR OLD MALE BIBA FROM HOME CC: GENERALIZED WEAKNESS. BODY PAIN SI: ALCOHOL WITHDRAWALS. SEIZURE PANCREATITIS 98.5 145 18 142/89 97% ON RA WBC+15.1 PLT-89 NA-122 BUN+29 LIPASE+1124 IS: IV ATIVAN 1L NS BOLUS IV THIAMINE IV KEPPRA CT HEAD CXR : TO TELEMETRY INTERQUAL CRITERIA MET
[2018-09-22] MEDS ORDERED: LORazepam Inj 2mg/ml 1ml IM SCH (13:00)
[2018-09-22] MEDS ORDERED: DiphenhydrAMINE 50mg/ml Inj IM SCH (13:00)
[2018-09-22] MEDS ORDERED: Haloperidol 5mg/ml Inj IM SCH (13:00)
--- NOTE | 2018-09-22 13:00 | NUR ---
NURSE NOTES: STILL CAN'T PLACE AN IV ON THE PATIENT, MD AWARE. WILL CONTINUE TO MONITOR PATIENT.
[2018-09-22] MEDS: Propranolol 10mg tab ORAL SCH ×2 (13:48→21:47)
--- NOTE | 2018-09-22 14:52 | Consultation ---
History of Present Illness General Chief Complaint: Generalized Weakness Referring physician: PAT KIM Reason for Consultation: Alcoholic hepatitis Present Illness Allergies: Coded Allergies: No Known Allergies (Unverified , 09/21/18) Medication History Scheduled No Known Medications* (NKM - No Known Medications*), 0 ., (Reported) Patient History Healthcare decision maker Resuscitation status Full Code Advanced Directive on File Physical Exam Last 24 Hour Vital Signs Date Time Temp Pulse Resp B/P (MAP) Pulse Ox O2 Delivery O2 Flow Rate FiO2 09/22/18 13:48 97 118/69 09/22/18 12:00 98.4 97 18 118/69 (85) 99 09/22/18 10:31 98 115/69 09/22/18 09:00 Room Air 09/22/18 08:00 86 09/22/18 08:00 97.0 98 18 115/69 (84) 97 09/22/18 04:00 91 09/22/18 04:00 98.7 7 18 140/63 (88) 98 09/22/18 00:00 99.5 93 18 95/64 (74) 99 09/22/18 00:00 100 09/21/18 21:00 Room Air 09/21/18 20:00 111 09/21/18 20:00 100.0 113 18 106/73 (84) 93 09/21/18 18:40 98.2 114 18 141/70 (93) 97 09/21/18 18:30 98.4 130 22 138/65 95 Room Air 4.0 09/21/18 18:16 98.4 130 22 138/65 95 Room Air 09/21/18 16:20 113 20 94 Nasal Cannula 4.0 09/21/18 15:32 98.4 145 18 142/89 97 Room Air 09/21/18 15:32 145 18 Room Air Intake and Output 09/21/18 09/22/18 18:59 06:59 Intake Total 1085 ml Balance 1085 ml Intake IV Total 1085 ml # Voids 1 10 Laboratory Tests Test 09/21/18 15:00 09/21/18 15:05 09/22/18 06:14 White Blood Count 15.1 K/UL (4.8-10.8) H 12.0 K/UL (4.8-10.8) H Red Blood Count 4.74 M/UL (4.70-6.10) 4.14 M/UL (4.70-6.10) L Hemoglobin 11.3 G/DL (14.2-18.0) L 9.8 G/DL (14.2-18.0) L Hematocrit 36.7 % (42.0-52.0) L 31.7 % (42.0-52.0) L Mean Corpuscular Volume 77 FL (80-99) L 77 FL (80-99) L Mean Corpuscular Hemoglobin 23.8 PG (27.0-31.0) L 23.6 PG (27.0-31.0) L Mean Corpuscular Hemoglobin Concent 30.8 G/DL (32.0-36.0) L 30.8 G/DL (32.0-36.0) L Red Cell Distribution Width 21.2 % (11.6-14.8) H 21.5 % (11.6-14.8) H Platelet Count 89 K/UL (150-450) L 70 K/UL (150-450) L Mean Platelet Volume 14.5 FL (6.5-10.1) H 15.8 FL (6.5-10.1) H Neutrophils (%) (Auto) % (45.0-75.0) % (45.0-75.0) Lymphocytes (%) (Auto) % (20.0-45.0) % (20.0-45.0) Monocytes (%) (Auto) % (1.0-10.0) % (1.0-10.0) Eosinophils (%) (Auto) % (0.0-3.0) % (0.0-3.0) Basophils (%) (Auto) % (0.0-2.0) % (0.0-2.0) Differential Total Cells Counted 100 100 Neutrophils % (Manual) 70 % (45-75) 84 % (45-75) H Lymphocytes % (Manual) 11 % (20-45) L 5 % (20-45) L Monocytes % (Manual) 14 % (1-10) H 11 % (1-10) H Eosinophils % (Manual) 2 % (0-3) 0 % (0-3) Basophils % (Manual) 1 % (0-2) 0 % (0-2) Band Neutrophils 2 % (0-8) 0 % (0-8) Platelet Estimate Decreased L Decreased L Platelet Morphology Normal Normal Hypochromasia 1+ 1+ Anisocytosis 1+ 2+ Prothrombin Time 12.2 SEC (9.30-11.50) H Prothromb Time International Ratio 1.2 (0.9-1.1) H Activated Partial Thromboplast Time 26 SEC (23-33) Sodium Level 122 MMOL/L (136-145) L 130 MMOL/L (136-145) L Potassium Level 3.4 MMOL/L (3.5-5.1) L 3.6 MMOL/L (3.5-5.1) Chloride Level 83 MMOL/L (98-107) L 97 MMOL/L (98-107) L Carbon Dioxide Level 10 MMOL/L (21-32) L 23 MMOL/L (21-32) Anion Gap 29 mmol/L (5-15) H 10 mmol/L (5-15) Blood Urea Nitrogen 5 mg/dL (7-18) L 4 mg/dL (7-18) L Creatinine 1.3 MG/DL (0.55-1.30) 1.0 MG/DL (0.55-1.30) Estimat Glomerular Filtration Rate 57.1 mL/min (>60) > 60 mL/min (>60) Glucose Level 161 MG/DL (74-106) H 99 MG/DL (74-106) Calcium Level 9.5 MG/DL (8.5-10.1) 8.4 MG/DL (8.5-10.1) L Phosphorus Level 3.9 MG/DL (2.5-4.9) 2.1 MG/DL (2.5-4.9) L Magnesium Level 2.1 MG/DL (1.8-2.4) 2.3 MG/DL (1.8-2.4) Total Bilirubin 2.5 MG/DL (0.2-1.0) H 2.6 MG/DL (0.2-1.0) H Direct Bilirubin 0.8 MG/DL (0.0-0.3) H 1.2 MG/DL (0.0-0.3) H Aspartate Amino Transf (AST/SGOT) 147 U/L (15-37) H 135 U/L (15-37) H Alanine Aminotransferase (ALT/SGPT) 86 U/L (12-78) H 75 U/L (12-78) Alkaline Phosphatase 71 U/L (46-116) 53 U/L (46-116) Troponin I 0.000 ng/mL (0.000-0.056) Total Protein 8.7 G/DL (6.4-8.2) H 7.4 G/DL (6.4-8.2) Albumin 4.1 G/DL (3.4-5.0) 3.3 G/DL (3.4-5.0) L Globulin 4.6 g/dL 4.1 g/dL Albumin/Globulin Ratio 0.9 (1.0-2.7) L 0.8 (1.0-2.7) L Lipase 1124 U/L (73-393) H 521 U/L (73-393) H Salicylates Level < 0.2 ug/mL (2.8-20) L Acetaminophen Level < 2 MCG/ML (10-30) L Serum Alcohol < 3 mg/dL Urine Color Brown Urine Appearance Clear Urine pH 7 (4.5-8.0) Urine Specific [place] 1.010 (1.005-1.035) Urine Protein 2+ (NEGATIVE) H Urine Glucose (UA) Negative (NEGATIVE) Urine Ketones 2+ (NEGATIVE) H Urine Blood 3+ (NEGATIVE) H Urine Nitrite Negative (NEGATIVE) Urine Bilirubin 1+ (NEGATIVE) H Urine Ictotest Negative (NEGATIVE) Urine Urobilinogen 12 MG/DL (0.0-1.0) H Urine Leukocyte Esterase 1+ (NEGATIVE) H Urine RBC 5-10 /HPF (0 - 0) H Urine WBC 2-4 /HPF (0 - 0) Urine Squamous Epithelial Cells None /LPF (NONE/OCC) Urine Amorphous Sediment Few /LPF (NONE) H Urine Bacteria Few /HPF (NONE) Urine Opiates Screen Negative (NEGATIVE) Urine Barbiturates Screen Negative (NEGATIVE) Phencyclidine (PCP) Screen Negative (NEGATIVE) Urine Amphetamines Screen Negative (NEGATIVE) Urine Benzodiazepines Screen Negative (NEGATIVE) Urine Cocaine Screen Negative (NEGATIVE) Urine Marijuana (THC) Screen Negative (NEGATIVE) Microcytosis 1+ Hemoglobin A1c 5.5 % (4.3-6.0) Uric Acid 3.0 MG/DL (2.6-7.2) Iron Level 41 ug/dL (50-175) L Total Iron Binding Capacity 281 ug/dL (250-450) Percent Iron Saturation 15 % (15-50) Unsaturated Iron Binding 240 ug/dL (112-346) Ferritin 48 NG/ML (8-388) Gamma Glutamyl Transpeptidase 466 U/L (5-85) H Ammonia 26 umol/L (11-32) Total Creatine Kinase 1869 U/L (26-308) H C-Reactive Protein, Quantitative 3.3 mg/dL (0.00-0.90) H Pro-B-Type Natriuretic Peptide 370 pg/mL (0-125) H Triglycerides Level 74 MG/DL (30-150) Cholesterol Level 116 MG/DL (< 200) LDL Cholesterol 63 mg/dL (<100) HDL Cholesterol 44 MG/DL (40-60) Cholesterol/HDL Ratio 2.6 (3.3-4.4) L Vitamin B12 Level 834 PG/ML (193-986) Folate 7.1 NG/ML (8.6-58.9) L Thyroid Stimulating Hormone (TSH) 4.007 uiU/mL (0.358-3.740) Height (Feet): 5 Height (Inches): 7.00 Weight (Pounds): 150 Medications Current Medications Medications (Trade) Dose Ordered Sig/Socrates Route PRN Reason Start Time Stop Time Status Last Admin Dose Admin Acetaminophen (Tylenol) 500 mg Q6H PRN ORAL Mild Pain/Temp of 100.0/higher 09/21/18 21:45 10/21/18 21:44 Chlordiazepoxide (Librium) 50 mg TID ORAL 09/22/18 18:00 09/29/18 17:59 Dextrose/ Electrolytes 1,000 ml @ 100 mls/hr Q10H IV 09/21/18 18:30 10/21/18 18:29 09/22/18 05:13 Divalproex Sodium (Depakote) 250 mg EVERY 12 HOURS ORAL 09/22/18 21:00 10/22/18 20:59 Famotidine (Pepcid I.v.) 20 mg Q12HR IVP 09/21/18 21:00 10/21/18 20:59 09/22/18 10:20 Folic Acid (Folate) 2 mg DAILY ORAL 09/22/18 09:00 10/22/18 08:59 09/22/18 09:04 Levetiracetam 100 ml @ 400 mls/hr Q12HR IVPB 09/21/18 21:00 10/21/18 20:59 09/22/18 09:05 Lorazepam (Ativan 2mg/ml 1ml) 2 mg Q2H PRN IV for agitation 09/22/18 08:45 09/29/18 08:44 09/22/18 09:04 Ondansetron HCl (Zofran) 4 mg Q6H PRN IVP Nausea & Vomiting 09/21/18 20:30 10/21/18 20:29 Piperacillin Sod/ Tazobactam Sod 3.375 gm/Sodium Chloride 110 ml @ 27.5 mls/hr EVERY 8 HOURS IVPB 09/21/18 22:00 09/26/18 21:59 09/22/18 05:13 Potassium Phosphate 20 mm/ Sodium Chloride 281.6667 ml @ 46.944 m... ONCE IV 09/22/18 10:00 09/22/18 16:00 09/22/18 10:21 Propranolol HCl (Inderal) 10 mg Q8HR ORAL 09/22/18 14:00 10/22/18 13:59 09/22/18 13:48 Assessment/Plan Assessment/Plan: Hematology Consultation REQ MD: Ngozi Dowling DOS: 09/22/18 Chief Complaint: Generalized Weakness RFC: Pancytopenia eval ID 58 y old male brought in by EMS. He's complaining about weakness and tremors. The patient does drink alcohol but stopped on Thursday. He's had withdrawal seizures in the past and is not taking any medication at this time. He also has episodes of vomiting. He denies any hematemesis or coffee-ground emesis. He's been moving his bowels normally and denies melena. He occasionally has epigastric pain but denies this now. The pain in his thighs is rated 6/10 and aching. No radiation. No history of trauma. Noted to have pancytopenia and heme consulted. Allergies: No Known Allergies (Unverified , 09/21/18) Patient History Past Medical History: see triage record Social History: Reports: alcohol use Social History Narrative lives with mom Reviewed Nursing Documentation: PMH: Agreed; PSxH: Agreed Past Medical History: No Stated History Review of Systems: negative except mentioned in HPI PE Vital Signs Date Time Temp Pulse Resp B/P (MAP) Pulse Ox O2 Delivery O2 Flow Rate FiO2 09/21/18 14:07 98.4 145 18 142/89 97 Room Air Sp02 EP: reviewed, normal General Appearance: well appearing, no apparent distress, GCS 15 Head: normocephalic Eyes: bilateral eye normal inspection, bilateral eye PERRL, bilateral eye EOMI ENT: moist mucus membranes Neck: supple Respiratory: lungs clear, normal breath sounds Cardiovascular: regular rate, rhythm, 2+ radial (R) Gastrointestinal: normal inspection, normal bowel sounds, non tender, no mass, non-distended Musculoskeletal: back normal, gait/station normal, normal range of motion Neurologic: alert, oriented x3, credit collection specialist III-XII nml as tested Psychiatric: anxious Skin: normal inspection, warm/dry Laboratory Tests Test 09/21/18 15:00 09/21/18 15:05 White Blood Count 15.1 K/UL (4.8-10.8) H Red Blood Count 4.74 M/UL (4.70-6.10) Hemoglobin 11.3 G/DL (14.2-18.0) L Hematocrit 36.7 % (42.0-52.0) L Mean Corpuscular Volume 77 FL (80-99) L Mean Corpuscular Hemoglobin 23.8 PG (27.0-31.0) L Mean Corpuscular Hemoglobin Concent 30.8 G/DL (32.0-36.0) L Red Cell Distribution Width 21.2 % (11.6-14.8) H Platelet Count 89 K/UL (150-450) L Mean Platelet Volume 14.5 FL (6.5-10.1) H Neutrophils (%) (Auto) % (45.0-75.0) Lymphocytes (%) (Auto) % (20.0-45.0) Monocytes (%) (Auto) % (1.0-10.0) Eosinophils (%) (Auto) % (0.0-3.0) Basophils (%) (Auto) % (0.0-2.0) Neutrophils % (Manual) Pending Lymphocytes % (Manual) Pending Platelet Estimate Pending Platelet Morphology Pending Prothrombin Time 12.2 SEC (9.30-11.50) H Prothrombin Time INR 1.2 (0.9-1.1) H PTT 26 SEC (23-33) Sodium Level 122 MMOL/L (136-145) L Potassium Level 3.4 MMOL/L (3.5-5.1) L Chloride Level 83 MMOL/L (98-107) L Carbon Dioxide Level 10 MMOL/L (21-32) L Anion Gap 29 mmol/L (5-15) H Blood Urea Nitrogen 5 mg/dL (7-18) L Creatinine 1.3 MG/DL (0.55-1.30) Estimate Glomerular Filtration Rate 57.1 mL/min (>60) Glucose Level 161 MG/DL (74-106) H Calcium Level 9.5 MG/DL (8.5-10.1) Phosphorus Level 3.9 MG/DL (2.5-4.9) Magnesium Level 2.1 MG/DL (1.8-2.4) Total Bilirubin 2.5 MG/DL (0.2-1.0) H Direct Bilirubin 0.8 MG/DL (0.0-0.3) H Aspartate Amino Transferase (AST) 147 U/L (15-37) H Alanine Aminotransferase (ALT) 86 U/L (12-78) H Alkaline Phosphatase 71 U/L (46-116) Troponin I 0.000 ng/mL (0.000-0.056) Total Protein 8.7 G/DL (6.4-8.2) H Albumin 4.1 G/DL (3.4-5.0) Globulin 4.6 g/dL Albumin/Globulin Ratio 0.9 (1.0-2.7) L Lipase 1124 U/L (73-393) H Salicylates Level < 0.2 ug/mL (2.8-20) L Acetaminophen Level < 2 MCG/ML (10-30) L Serum Alcohol < 3 mg/dL Urine Color Brown Urine Appearance Clear Urine pH 7 (4.5-8.0) Urine Specific [place] 1.010 (1.005-1.035) Urine Protein 2+ (NEGATIVE) H Urine Glucose (UA) Negative (NEGATIVE) Urine Ketones 2+ (NEGATIVE) H Urine Blood 3+ (NEGATIVE) H Urine Nitrite Negative (NEGATIVE) Urine Bilirubin 1+ (NEGATIVE) H Urine Ictotest Negative (NEGATIVE) Urine Urobilinogen 12 MG/DL (0.0-1.0) H Urine Leukocyte Esterase 1+ (NEGATIVE) H Urine RBC 5-10 /HPF (0 - 0) H Urine WBC 2-4 /HPF (0 - 0) Urine Squamous Epithelial Cells None /LPF (NONE/OCC) Urine Amorphous Sediment Few /LPF (NONE) H Urine Bacteria Few /HPF (NONE) Urine Opiates Screen Negative (NEGATIVE) Urine Barbiturates Screen Negative (NEGATIVE) Phencyclidine (PCP) Screen Negative (NEGATIVE) Urine Amphetamines Screen Negative (NEGATIVE) Urine Benzodiazepines Screen Negative (NEGATIVE) Urine Cocaine Screen Negative (NEGATIVE) Urine Marijuana (THC) Screen Negative (NEGATIVE) Assessment and Recs: # Pancytopenia -- multiple etiologies could be related to underlying liver disease, in this case is very likely related to etoh ABUse and myelosuppresion of the bone marrow --> peripheral smear has been ordered and does not show significant abnormalities --> Medications have been reviewed --> Continue to monitor for improvement, trend cbc --> Hep panel and HIV have been ordered --> US abd ordered to r/o cirrhosis and hepatosplenomegaly --> consider other causes, infections that could contribute --> reverse isolation if ANC is <2000 --> Give neupogen if ANC <1000 --> Transfuse if hgb <7, with 1 unit prbc # Anemia of chronic disease (or of iron deficiency) due to underlying chronic medical issues, multifactorial --> Anemia workup has been ordered, rule out gi bleed --> No evidence of hemolysis is noted, peripheral smear has been reviewed. --> Hgb goal >7. Transfuse prn. --> Epogen or iron at this time is not particularly indicated --> Medications have been reviewed --> evaluate with Gi team prn # Alcohol withdrawal --> Monitor for alcohol withdrawal seizure # Impending delirium tremens # Hyponatremia # Pancreatitis # HYperbilirubinemia as per above The timing of this note does not necessarily reflect the time of the patient was seen. Greatly appreciate consultation! Avery Bell MD September 22, 2018 14:52
[2018-09-22 16:00] VITALS: BP 121/82
[2018-09-22] MEDS: chlordiazePOXIDE 25mg Cap ORAL SCH (17:34)
--- NOTE | 2018-09-22 19:00 | Consultation ---
DATE OF CONSULTATION: 09/22/2018 INFECTIOUS DISEASES CONSULTATION CONSULTING PHYSICIAN: Tyrell Yee M.D. PRIMARY ATTENDING PHYSICIAN: Nitesh Melvin M.D. REASON FOR CONSULTATION: Pancreatitis. HISTORY OF PRESENT ILLNESS: This is a 58-year-old male admitted yesterday, complaining of weakness, tremor after stopping alcohol three days ago. He has fever and leukocytosis. The highest temperature was 100 degrees. He has a history of alcohol withdrawal and seizure before. Today, he is confused, he is on restraints. PAST MEDICAL HISTORY: Alcohol abuse, alcohol withdrawal, and seizure. ALLERGIES: No known drug allergies. MEDICATIONS: Inderal, Librium, lorazepam, potassium chloride, Zosyn, , Tylenol, Keppra. SOCIAL HISTORY: Admits to drink four beers a day. He is single, a very poor historian. REVIEW OF SYSTEMS: Very limited. Denies any nausea or vomiting. Denies coughing. He has incontinence and has tremor. Currently, he is agitated, on restraints. PHYSICAL EXAMINATION: VITAL SIGNS: Temperature 97, pulse 98, blood pressure 115/69. GENERAL APPEARANCE: Seems to be thin. Seems to have icterus. HEAD AND NECK: [place] conjunctiva. HEART: Normal rate. LUNGS: Clear. ABDOMEN: Soft and nontender. EXTREMITIES: No edema. NEUROLOGIC: Awake, responsive, confuse, resless on restraint. LABORATORY DATA: Sodium 130, potassium 3.6, chloride 97, bicarbonate 23, BUN 4, creatinine 1, bilirubin 2.6. AST 466, ALT 135. CK level was 1969. Lipase at the time of admission is 1124 and today is 521. TSH is 4. Urine toxicology was negative. UA showed rbc of 5 to 10. IMPRESSION: Acute pancreatitis, likely alcoholic. The patient has anemia with hemoglobin of 9.8; thrombocytopenia with a platelet of 70,000; leukocytosis that is improving. He has alcohol withdrawal, hyponatremia. RECOMMENDATION: We will continue with Zosyn. We will perform abdominal ultrasounds to rule out alcoholic cirrhosis and biliary disease. If the patient remained stable, we may stop antibiotics soon. At the end of my exam, I thank Dr. Melvin for involving me in the care of this patient. Tyrell Yee M.D. DR: ROBERTO JOB#: [id number] CC: ROBERT
--- NOTE | 2018-09-22 19:57 | NUR ---
HAND-OFF: Report given to GWENDOLYN Lares. Endorsed plan of care.
[2018-09-22 20:00] VITALS: BP 112/67
--- NOTE | 2018-09-22 20:00 | NUR ---
NURSE NOTES: Received report from GWENDOLYN Bruner. Patient in bed unable to follow commands at this time. Pt is restless, disoriented and disorganized. No IV access noted. Will attempt access. Pt otherwise stable. Will cont to monitor.
--- NOTE | 2018-09-22 22:21 | Initial Psychiatric Evaluation ---
Psychiatry Consultation Psychiatry Consultation Chief Complaint: Generalized Weakness History of Present Illness: 58-year-old male c hx of alcohol dependence and seizure do of weakness , tremor after stopping alcohol three days prior to adm. the pt is severely agitated and is confused the pt is unable to provide hx. the pt has been awake all night. the pt has been spitting all meds out. Allergies: Coded Allergies: No Known Allergies (Unverified , 09/21/18) Past Psychiatric History: unknown Substance Abuse History: alcohol Medication History Scheduled No Known Medications* (NKM - No Known Medications*), 0 ., (Reported) Patient History Limited by: medical condition History Provided By: Medical Record, PMD Objective Data Height (Feet): 5 Height (Inches): 7.00 Weight (Pounds): 150 Appearance: disheveled Behavior Mannerisms: poor eye contact Affect: labile Mood: agitated Speech: slurred Thought Process: tangential, confusion Assessment/Plan Problem List: (1) Alcohol withdrawal ICD Codes: F10.239 - Alcohol dependence with withdrawal, unspecified SNOMED: 219969870 Qualifiers: Qualified Codes: F10.239 - Alcohol dependence with withdrawal, unspecified (2) Alcohol withdrawal seizure ICD Codes: F10.239 - Alcohol dependence with withdrawal, unspecified; R56.9 - Unspecified convulsions SNOMED: 620400202 Qualifiers: Qualified Codes: F10.239 - Alcohol dependence with withdrawal, unspecified; R56.9 - Unspecified convulsions (3) Alcohol dependence ICD Codes: F10.20 - Alcohol dependence, uncomplicated SNOMED: 96470748 Assessment/Plan: ativan IV increase librium to 50 mg tid the pt was given a cocktail today as he was agitated cont restraints Diagnosis [place] I: alcohol dependence see assessment Nabil Burr MD September 22, 2018 22:21
[2018-09-23] VITALS: BP 99/54
[2018-09-23] MEDS: D5NS w/KCl 40mEq 1000ml 1,000 ML IV SCH ×3 (00:42→20:30)
[2018-09-23] MEDS: LORazepam Inj 2mg/ml 1ml IV PRN ×5 (00:42→21:25)
[2018-09-23 04:00] VITALS: BP 153/89
[2018-09-23] MEDS: Propranolol 10mg tab ORAL SCH ×3 (05:35→21:35)
[2018-09-23] MEDS: Piperacillin/Tazobactam 3.375 GM in NS 110 ML IVPB SCH ×3 (05:35→22:16)
[2018-09-23 06:55] LABS: HEMATOCRIT 30.7 % (42.0-52.0); HEMOGLOBIN 9.5 G/DL (14.2-18.0); MEAN CORPUSCULAR VOLUME 78 FL (80-99); PLATELET COUNT 87 K/UL (150-450); RED BLOOD COUNT 3.96 M/UL (4.70-6.10); RED CELL DISTRIBUTION WIDTH 21.7 % (11.6-14.8); WHITE BLOOD COUNT 10.1 K/UL (4.8-10.8)
--- NOTE | 2018-09-23 07:19 | NUR ---
HAND-OFF: Report given to Tito Li. Pt stable at hand off.
--- NOTE | 2018-09-23 07:47 | NUR ---
NURSE NOTES: Received report from GWENDOLYN Doherty. Patient in bed unable to follow commands. Pt is restless, removed , disoriented and disorganized.per report: patient removed his iv access and new iv inserted by Luda SNOW. IV is intact and patent at this time. Pt otherwise stable. Will cont to monitor.
[2018-09-23 07:55] LABS: ALANINE AMINOTRANSFERASE 74 U/L (12-78); ALBUMIN 3.1 G/DL (3.4-5.0); ALBUMIN/GLOBULIN RATIO 0.8 (1.0-2.7); ALKALINE PHOSPHATASE 53 U/L (46-116); ANION GAP 11 mmol/L (5-15); ASPARTATE AMINO TRANSFERASE 140 U/L (15-37); BLOOD UREA NITROGEN 6 mg/dL (7-18); CARBON DIOXIDE 22 MMOL/L (21-32); CHLORIDE 101 MMOL/L (98-107); PHOSPHORUS 2.1 MG/DL (2.5-4.9); POTASSIUM 3.1 MMOL/L (3.5-5.1); SODIUM 134 MMOL/L (136-145)
[2018-09-23] MEDS: chlordiazePOXIDE 25mg Cap ORAL SCH ×3 (08:13→17:12)
[2018-09-23] MEDS: levETIRAcetam 500mg/NS100ml 100 ML IVPB SCH ×2 (08:20→22:00)
[2018-09-23 08:24] LABS: BILIRUBIN,DIRECT 0.9 MG/DL (0.0-0.3); CREATINE KINASE 2062 U/L (26-308)
[2018-09-23 08:34] VITALS: BP 113/67
[2018-09-23] MEDS ORDERED: Potassium Phosphate 30 MM in NS 275 ML IV SCH (10:00)
--- NOTE | 2018-09-23 10:19 | GI Progress Note ---
Assessment/Plan Problems: (1) Alcoholic pancreatitis ICD Codes: K85.20 - Alcohol induced acute pancreatitis without necrosis or infection SNOMED: 025030094 (2) Alcoholic hepatitis ICD Codes: K70.10 - Alcoholic hepatitis without ascites SNOMED: 129734653 (3) Anemia ICD Codes: D64.9 - Anemia, unspecified SNOMED: 129282772 (4) Alcohol withdrawal ICD Codes: F10.239 - Alcohol dependence with withdrawal, unspecified SNOMED: 094854973 Qualifiers: Qualified Codes: F10.239 - Alcohol dependence with withdrawal, unspecified (5) Pancreatitis ICD Codes: K85.90 - Acute pancreatitis without necrosis or infection, unspecified SNOMED: 53541829 Qualifiers: Qualified Codes: K85.20 - Alcohol induced acute pancreatitis without necrosis or infection (6) Thrombocytopenia ICD Codes: D69.6 - Thrombocytopenia, unspecified SNOMED: 259107844 (7) Hyponatremia ICD Codes: E87.1 - Hypo-osmolality and hyponatremia SNOMED: 57702777 Status: progressing Status Narrative Discussed with Dr. Wright. Assessment/Plan Discriminant function calculated, no need for glucocorticoid therapy. Advance diet as tolerated Ativan as needed Folate anemia work up OB stool r/o GI bleed monitor H&H, prn transfusions bowel regime ppi fu labs avoid alcohol trend LFTs The patient was seen and examined at bedside and all new and available data was reviewed in the patients chart. I agree with the above findings, impression and plan. (Patient seen earlier today. Signature stamp does not reflect patient encounter time.). - Daniel Wright MD Subjective Subjective limited Objective Last 24 Hour Vital Signs Date Time Temp Pulse Resp B/P (MAP) Pulse Ox O2 Delivery O2 Flow Rate FiO2 09/23/18 09:58 Room Air 09/23/18 08:34 97.7 74 17 113/67 (82) 96 09/23/18 05:35 70 153/89 09/23/18 04:00 98.3 97 18 153/89 (110) 99 09/23/18 04:00 73 09/23/18 00:00 97.2 76 18 99/54 (69) 97 09/23/18 00:00 79 09/22/18 21:47 82 112/67 09/22/18 21:00 Room Air 09/22/18 20:00 96.8 82 18 112/67 (82) 93 09/22/18 20:00 95 09/22/18 16:00 98.2 92 18 121/82 (95) 96 09/22/18 16:00 89 09/22/18 13:48 97 118/69 09/22/18 12:00 98.4 97 18 118/69 (85) 99 09/22/18 10:31 98 115/69 Intake and Output 09/22/18 09/23/18 19:00 07:00 Intake Total 837.5 ml Output Total 600 ml 900 ml Balance -600 ml -62.5 ml Intake IV Total 837.5 ml Output Urine Total 600 ml 900 ml # Voids 2 Laboratory Tests Test 09/22/18 20:55 09/23/18 05:10 Fibrinogen 258 mg/dL (200-400) White Blood Count 10.1 K/UL (4.8-10.8) Red Blood Count 3.96 M/UL (4.70-6.10) L Hemoglobin 9.5 G/DL (14.2-18.0) L Hematocrit 30.7 % (42.0-52.0) L Mean Corpuscular Volume 78 FL (80-99) L Mean Corpuscular Hemoglobin 24.1 PG (27.0-31.0) L Mean Corpuscular Hemoglobin Concent 31.1 G/DL (32.0-36.0) L Red Cell Distribution Width 21.7 % (11.6-14.8) H Platelet Count 87 K/UL (150-450) L Mean Platelet Volume 13.7 FL (6.5-10.1) H Neutrophils (%) (Auto) % (45.0-75.0) Lymphocytes (%) (Auto) % (20.0-45.0) Monocytes (%) (Auto) % (1.0-10.0) Eosinophils (%) (Auto) % (0.0-3.0) Basophils (%) (Auto) % (0.0-2.0) Neutrophils % (Manual) Pending Lymphocytes % (Manual) Pending Platelet Estimate Pending Platelet Morphology Pending Sodium Level 134 MMOL/L (136-145) L Potassium Level 3.1 MMOL/L (3.5-5.1) L Chloride Level 101 MMOL/L (98-107) Carbon Dioxide Level 22 MMOL/L (21-32) Anion Gap 11 mmol/L (5-15) Blood Urea Nitrogen 6 mg/dL (7-18) L Creatinine 1.0 MG/DL (0.55-1.30) Estimat Glomerular Filtration Rate > 60 mL/min (>60) Glucose Level 83 MG/DL (74-106) Uric Acid 2.9 MG/DL (2.6-7.2) Calcium Level 8.0 MG/DL (8.5-10.1) L Phosphorus Level 2.1 MG/DL (2.5-4.9) L Magnesium Level 2.2 MG/DL (1.8-2.4) Total Bilirubin 2.0 MG/DL (0.2-1.0) H Direct Bilirubin 0.9 MG/DL (0.0-0.3) H Aspartate Amino Transf (AST/SGOT) 140 U/L (15-37) H Alanine Aminotransferase (ALT/SGPT) 74 U/L (12-78) Alkaline Phosphatase 53 U/L (46-116) Total Creatine Kinase 2062 U/L (26-308) H C-Reactive Protein, Quantitative 6.4 mg/dL (0.00-0.90) H Pro-B-Type Natriuretic Peptide 339 pg/mL (0-125) H Total Protein 7.0 G/DL (6.4-8.2) Albumin 3.1 G/DL (3.4-5.0) L Globulin 3.9 g/dL Albumin/Globulin Ratio 0.8 (1.0-2.7) L Lipase 322 U/L (73-393) Height (Feet): 5 Height (Inches): 7.00 Weight (Pounds): 150 General Appearance: no apparent distress, thin Cardiovascular: normal rate Respiratory/Chest: normal breath sounds, no respiratory distress Abdominal Exam: normal bowel sounds, non tender, soft Extremities: non-tender Susan Burnette NP September 23, 2018 10:19
--- NOTE | 2018-09-23 10:46 | NUR ---
Social Service Note SW attempted to meet with patient to assess for substance abuse (ETHO) however patient was non-responsive. Patient would not wake up or opens eyes when touched. Will monitor and follow up once more alert.
--- NOTE | 2018-09-23 10:55 | Infectious Diseases Prog Note ---
Assessment/Plan Assessment/Plan IMPRESSION: Acute pancreatitis, likely alcoholic anemia thrombocytopenia leukocytosis resolved alcohol withdrawal, hyponatremia. RECOMMENDATION: We will continue with Zosyn. We follow up abdominal ultrasound . If the patient remains stable, we may stop antibiotics soon Subjective ROS Limited/Unobtainable: Yes Constitutional: Reports: no symptoms Neurologic: Reports: other - agitated on restraint Allergies: Coded Allergies: No Known Allergies (Unverified , 09/21/18) Objective Vital Signs Last 24 Hour Vital Signs Date Time Temp Pulse Resp B/P (MAP) Pulse Ox O2 Delivery O2 Flow Rate FiO2 09/23/18 09:58 Room Air 09/23/18 08:34 97.7 74 17 113/67 (82) 96 09/23/18 05:35 70 153/89 09/23/18 04:00 98.3 97 18 153/89 (110) 99 09/23/18 04:00 73 09/23/18 00:00 97.2 76 18 99/54 (69) 97 09/23/18 00:00 79 09/22/18 21:47 82 112/67 09/22/18 21:00 Room Air 09/22/18 20:00 96.8 82 18 112/67 (82) 93 09/22/18 20:00 95 09/22/18 16:00 98.2 92 18 121/82 (95) 96 09/22/18 16:00 89 09/22/18 13:48 97 118/69 09/22/18 12:00 98.4 97 18 118/69 (85) 99 Height (Feet): 5 Height (Inches): 7.00 Weight (Pounds): 150 General Appearance: no acute distress HEENT: mucous membranes moist Respiratory/Chest: lungs clear Cardiovascular: normal rate Abdomen: soft, non tender Extremities: no edema Neurologic/Psychiatric: alert, responsive Laboratory Tests Test 09/22/18 20:55 09/23/18 05:10 Fibrinogen 258 mg/dL (200-400) White Blood Count 10.1 K/UL (4.8-10.8) Red Blood Count 3.96 M/UL (4.70-6.10) L Hemoglobin 9.5 G/DL (14.2-18.0) L Hematocrit 30.7 % (42.0-52.0) L Mean Corpuscular Volume 78 FL (80-99) L Mean Corpuscular Hemoglobin 24.1 PG (27.0-31.0) L Mean Corpuscular Hemoglobin Concent 31.1 G/DL (32.0-36.0) L Red Cell Distribution Width 21.7 % (11.6-14.8) H Platelet Count 87 K/UL (150-450) L Mean Platelet Volume 13.7 FL (6.5-10.1) H Neutrophils (%) (Auto) % (45.0-75.0) Lymphocytes (%) (Auto) % (20.0-45.0) Monocytes (%) (Auto) % (1.0-10.0) Eosinophils (%) (Auto) % (0.0-3.0) Basophils (%) (Auto) % (0.0-2.0) Neutrophils % (Manual) Pending Lymphocytes % (Manual) Pending Platelet Estimate Pending Platelet Morphology Pending Sodium Level 134 MMOL/L (136-145) L Potassium Level 3.1 MMOL/L (3.5-5.1) L Chloride Level 101 MMOL/L (98-107) Carbon Dioxide Level 22 MMOL/L (21-32) Anion Gap 11 mmol/L (5-15) Blood Urea Nitrogen 6 mg/dL (7-18) L Creatinine 1.0 MG/DL (0.55-1.30) Estimat Glomerular Filtration Rate > 60 mL/min (>60) Glucose Level 83 MG/DL (74-106) Uric Acid 2.9 MG/DL (2.6-7.2) Calcium Level 8.0 MG/DL (8.5-10.1) L Phosphorus Level 2.1 MG/DL (2.5-4.9) L Magnesium Level 2.2 MG/DL (1.8-2.4) Total Bilirubin 2.0 MG/DL (0.2-1.0) H Direct Bilirubin 0.9 MG/DL (0.0-0.3) H Aspartate Amino Transf (AST/SGOT) 140 U/L (15-37) H Alanine Aminotransferase (ALT/SGPT) 74 U/L (12-78) Alkaline Phosphatase 53 U/L (46-116) Total Creatine Kinase 2062 U/L (26-308) H C-Reactive Protein, Quantitative 6.4 mg/dL (0.00-0.90) H Pro-B-Type Natriuretic Peptide 339 pg/mL (0-125) H Total Protein 7.0 G/DL (6.4-8.2) Albumin 3.1 G/DL (3.4-5.0) L Globulin 3.9 g/dL Albumin/Globulin Ratio 0.8 (1.0-2.7) L Lipase 322 U/L (73-393) Current Medications Medications (Trade) Dose Ordered Sig/Socrates Route PRN Reason Start Time Stop Time Status Last Admin Dose Admin Acetaminophen (Tylenol) 500 mg Q6H PRN ORAL Mild Pain/Temp of 100.0/higher 09/21/18 21:45 10/21/18 21:44 Chlordiazepoxide (Librium) 50 mg TID ORAL 09/22/18 18:00 09/29/18 17:59 09/23/18 10:44 Dextrose/ Electrolytes 1,000 ml @ 100 mls/hr Q10H IV 09/21/18 18:30 10/21/18 18:29 09/23/18 08:25 Divalproex Sodium (Depakote) 250 mg EVERY 12 HOURS ORAL 09/22/18 21:00 10/22/18 20:59 09/22/18 21:48 Famotidine (Pepcid I.v.) 20 mg Q12HR IVP 09/21/18 21:00 10/21/18 20:59 09/23/18 08:08 Folic Acid (Folate) 2 mg DAILY ORAL 09/22/18 09:00 10/22/18 08:59 09/22/18 09:04 Levetiracetam 100 ml @ 400 mls/hr Q12HR IVPB 09/21/18 21:00 10/21/18 20:59 09/23/18 08:20 Lorazepam (Ativan 2mg/ml 1ml) 2 mg Q2H PRN IV for agitation 09/22/18 08:45 09/29/18 08:44 09/23/18 10:10 Ondansetron HCl (Zofran) 4 mg Q6H PRN IVP Nausea & Vomiting 09/21/18 20:30 10/21/18 20:29 Piperacillin Sod/ Tazobactam Sod 3.375 gm/Sodium Chloride 110 ml @ 27.5 mls/hr EVERY 8 HOURS IVPB 09/21/18 22:00 09/26/18 21:59 09/23/18 05:35 Potassium Phosphate 30 mm/ Sodium Chloride 285 ml @ 47.5 mls/hr ONCE IV 09/23/18 10:00 09/23/18 16:00 09/23/18 09:42 Potassium Chloride (K-Dur) 40 meq DAILY ORAL 09/23/18 09:00 10/23/18 08:59 09/23/18 09:41 Propranolol HCl (Inderal) 10 mg Q8HR ORAL 09/22/18 14:00 10/22/18 13:59 09/22/18 21:47 Tyrell Yee MD September 23, 2018 10:55
--- NOTE | 2018-09-23 11:48 | Nephrology Progress Note ---
Assessment/Plan Problem List: (1) Hyponatremia (2) Pancreatitis (3) Alcohol withdrawal seizure (4) Anemia Assessment HypoNatremia Alcoholic liver disease and pancreatitis ETOH Withdraw Sz Lipase lowering Plan NPO for food til awake hydrate librium thiamin monitor lytes and lipase Keppra Folate gastric support Subjective ROS Limited/Unobtainable: No Constitutional: Reports: malaise, weakness Objective Objective Last 24 Hour Vital Signs Date Time Temp Pulse Resp B/P (MAP) Pulse Ox O2 Delivery O2 Flow Rate FiO2 09/23/18 09:58 Room Air 09/23/18 08:34 97.7 74 17 113/67 (82) 96 09/23/18 05:35 70 153/89 09/23/18 04:00 98.3 97 18 153/89 (110) 99 09/23/18 04:00 73 09/23/18 00:00 97.2 76 18 99/54 (69) 97 09/23/18 00:00 79 09/22/18 21:47 82 112/67 09/22/18 21:00 Room Air 09/22/18 20:00 96.8 82 18 112/67 (82) 93 09/22/18 20:00 95 09/22/18 16:00 98.2 92 18 121/82 (95) 96 09/22/18 16:00 89 09/22/18 13:48 97 118/69 09/22/18 12:00 98.4 97 18 118/69 (85) 99 Intake and Output 09/22/18 09/23/18 19:00 07:00 Intake Total 837.5 ml Output Total 600 ml 900 ml Balance -600 ml -62.5 ml Intake IV Total 837.5 ml Output Urine Total 600 ml 900 ml # Voids 2 Laboratory Tests 09/22/18 20:55: Fibrinogen 258 09/23/18 05:10: White Blood Count 10.1, Red Blood Count 3.96L, Hemoglobin 9.5L, Hematocrit 30.7L , Mean Corpuscular Volume 78L, Mean Corpuscular Hemoglobin 24.1L, Mean Corpuscular Hemoglobin Concent 31.1L, Red Cell Distribution Width 21.7H, Platelet Count 87L, Mean Platelet Volume 13.7H, Neutrophils (%) (Auto) , Lymphocytes (%) (Auto) , Monocytes (%) (Auto) , Eosinophils (%) (Auto) , Basophils (%) (Auto) , Differential Total Cells Counted 100, Neutrophils % ( Manual) 73, Lymphocytes % (Manual) 13L, Monocytes % (Manual) 13H, Eosinophils % (Manual) 1, Basophils % (Manual) 0, Band Neutrophils 0, Platelet Estimate DecreasedL, Platelet Morphology [Pending], Giant Platelets Rare, Polychromasia Occasional, Hypochromasia 2+, Anisocytosis 2+, Microcytosis 2+, Sodium Level 134L, Potassium Level 3.1L, Chloride Level 101, Carbon Dioxide Level 22, Anion Gap 11, Blood Urea Nitrogen 6L, Creatinine 1.0, Estimat Glomerular Filtration Rate > 60, Glucose Level 83, Uric Acid 2.9, Calcium Level 8.0L, Phosphorus Level 2.1L, Magnesium Level 2.2, Total Bilirubin 2.0H, Direct Bilirubin 0.9H, Aspartate Amino Transf (AST/SGOT) 140H, Alanine Aminotransferase (ALT/SGPT) 74, Alkaline Phosphatase 53, Total Creatine Kinase 2062H, C-Reactive Protein, Quantitative 6.4H, Pro-B-Type Natriuretic Peptide 339H, Total Protein 7.0, Albumin 3.1L, Globulin 3.9, Albumin/Globulin Ratio 0.8L, Lipase 322 Height (Feet): 5 Height (Inches): 7.00 Weight (Pounds): 150 General Appearance: confused Cardiovascular: normal rate Respiratory/Chest: decreased breath sounds Abdomen: distended Neurologic: other - condfused Mode Krishnan MD September 23, 2018 11:48
[2018-09-23 12:00] VITALS: BP 92/82
--- NOTE | 2018-09-23 12:13 | Diagnostic Imaging Report ---
Indication:Abdominal pain Technique: Grayscale and duplex Doppler imaging of the abdomen performed. Comparison: None Findings: The liver is echogenic measures about 20 cm. No gallstones are identified. CBD is between 7 and 8 mm. There is no hydronephrosis or free fluid. Pancreas and aorta are not well seen. The portal vein is patent by Doppler examination. There is an echogenic lesion without shadowing in the right kidney which may be a angiomyolipoma. Aorta is normal caliber. IMPRESSION: Hepatomegaly with fatty infiltration. Pancreas and aorta are poorly seen due to bowel gas. 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
--- NOTE | 2018-09-23 13:29 | General Progress Note ---
Assessment/Plan Status: progressing Assessment/Plan: Assessment and Recs: # Pancytopenia -- multiple etiologies could be related to underlying liver disease, in this case is very likely related to etoh ABUse and myelosuppression of the bone marrow --> peripheral smear has been ordered and does not show significant abnormalities --> Medications have been reviewed --> Continue to monitor for improvement, trend cbc --> Hep panel and HIV have been reviewed and are negative --> US abd has been reviewed, fatty infiltration is noted --> consider other causes, infections that could contribute --> Reverse isolation if ANC is <2000 --> Give neupogen if ANC <1000 --> Transfuse if hgb <7, with 1 unit prbc # Anemia of iron deficiency, ferritin is <50 --> As per gi eval as needed --> No evidence of hemolysis is noted, peripheral smear has been reviewed. --> Hgb goal >7. Transfuse prn. --> Medications have been reviewed --> iv iron x 5 days started # Alcohol withdrawal --> Monitor for alcohol withdrawal seizure # Impending delirium tremens # Hyponatremia # Pancreatitis # HYperbilirubinemia as per above The timing of this note does not necessarily reflect the time of the patient was seen. Greatly appreciate consultation! Subjective Constitutional: Denies: no symptoms, chills, diaphoresis, fever, malaise, weakness, other HEENT: Denies: no symptoms, eye pain, blurred vision, tearing, double vision, ear pain, ear discharge, nose pain, nose congestion, throat pain, throat swelling, mouth pain, mouth swelling, other Cardiovascular: Denies: no symptoms, chest pain, edema, irregular heart rate, lightheadedness, palpitations, syncope, other Respiratory: Denies: no symptoms, cough, orthopnea, shortness of breath, SOB with excertion, SOB at rest, sputum, stridor, wheezing, other Gastrointestinal/Abdominal: Denies: no symptoms, abdomen distended, abdominal pain, black stools, tarry stools, blood in stool, constipated, diarrhea, difficulty swallowing, nausea, poor appetite, poor fluid intake, rectal bleeding , vomiting, other Genitourinary: Denies: no symptoms, burning, discharge, frequency, flank pain, hematuria, incontinence, pain, urgency, other Neurologic/Psychiatric: Denies: no symptoms, anxiety, depressed, emotional problems, headache, numbness, paresthesia, pre-existing deficit, seizure, tingling, tremors, weakness, other Endocrine: Denies: no symptoms, excessive sweating, flushing, intolerance to cold, intolerance to heat, increased hunger, increased thirst, increased urine, unexplained weight gain, unexplained weight loss, other Allergies: Coded Allergies: No Known Allergies (Unverified , 09/21/18) Subjective 09/23: no events noted, less altered, cbc reviewed Objective Last 24 Hour Vital Signs Date Time Temp Pulse Resp B/P (MAP) Pulse Ox O2 Delivery O2 Flow Rate FiO2 09/23/18 12:00 98.5 81 17 92/82 (85) 99 09/23/18 12:00 75 09/23/18 09:58 Room Air 09/23/18 08:34 97.7 74 17 113/67 (82) 96 09/23/18 08:00 70 09/23/18 05:35 70 153/89 09/23/18 04:00 98.3 97 18 153/89 (110) 99 09/23/18 04:00 73 09/23/18 00:00 97.2 76 18 99/54 (69) 97 09/23/18 00:00 79 09/22/18 21:47 82 112/67 09/22/18 21:00 Room Air 09/22/18 20:00 96.8 82 18 112/67 (82) 93 09/22/18 20:00 95 09/22/18 16:00 98.2 92 18 121/82 (95) 96 09/22/18 16:00 89 09/22/18 13:48 97 118/69 Intake and Output 09/22/18 09/23/18 18:59 06:59 Intake Total 837.5 ml Output Total 600 ml 900 ml Balance -600 ml -62.5 ml Intake IV Total 837.5 ml Output Urine Total 600 ml 900 ml # Voids 2 Laboratory Tests 09/22/18 20:55: Fibrinogen 258 09/23/18 05:10: White Blood Count 10.1, Red Blood Count 3.96L, Hemoglobin 9.5L, Hematocrit 30.7L , Mean Corpuscular Volume 78L, Mean Corpuscular Hemoglobin 24.1L, Mean Corpuscular Hemoglobin Concent 31.1L, Red Cell Distribution Width 21.7H, Platelet Count 87L, Mean Platelet Volume 13.7H, Neutrophils (%) (Auto) , Lymphocytes (%) (Auto) , Monocytes (%) (Auto) , Eosinophils (%) (Auto) , Basophils (%) (Auto) , Differential Total Cells Counted 100, Neutrophils % ( Manual) 73, Lymphocytes % (Manual) 13L, Monocytes % (Manual) 13H, Eosinophils % (Manual) 1, Basophils % (Manual) 0, Band Neutrophils 0, Platelet Estimate DecreasedL, Platelet Morphology See comment, Giant Platelets Rare, Polychromasia Occasional, Hypochromasia 2+, Anisocytosis 2+, Microcytosis 2+, Sodium Level 134L, Potassium Level 3.1L, Chloride Level 101, Carbon Dioxide Level 22, Anion Gap 11, Blood Urea Nitrogen 6L, Creatinine 1.0, Estimat Glomerular Filtration Rate > 60, Glucose Level 83, Uric Acid 2.9, Calcium Level 8.0L, Phosphorus Level 2.1L, Magnesium Level 2.2, Total Bilirubin 2.0H, Direct Bilirubin 0.9H, Aspartate Amino Transf (AST/SGOT) 140H, Alanine Aminotransferase (ALT/SGPT) 74, Alkaline Phosphatase 53, Total Creatine Kinase 2062H, C-Reactive Protein, Quantitative 6.4H, Pro-B-Type Natriuretic Peptide 339H, Total Protein 7.0, Albumin 3.1L, Globulin 3.9, Albumin/Globulin Ratio 0.8L , Lipase 322 Height (Feet): 5 Height (Inches): 7.00 Weight (Pounds): 150 General Appearance: alert EENT: TMs normal Neck: normal alignment Cardiovascular: regular rhythm Respiratory/Chest: no respiratory distress Abdomen: no mass Objective Sp02 EP: reviewed, normal General Appearance: well appearing, no apparent distress, GCS 15 Head: normocephalic Eyes: bilateral eye normal inspection, bilateral eye PERRL, bilateral eye EOMI ENT: moist mucus membranes Neck: supple Respiratory: lungs clear, normal breath sounds Cardiovascular: regular rate, rhythm, 2+ radial (R) Gastrointestinal: normal inspection, normal bowel sounds, non tender, no mass, non-distended Musculoskeletal: back normal, gait/station normal, normal range of motion Neurologic: alert, oriented x3, 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
--- NOTE | 2018-09-23 14:15 | History and Physical Report ---
DATE OF ADMISSION: 09/21/2018 HISTORY OF PRESENT ILLNESS: The patient was admitted for alcohol-withdrawal seizures. The patient is very confused and is trying to get up, however, he is very confused. The patient also apparently had initially vomiting and abdominal pain, admitted for alcohol-withdrawal seizures. The patient was also admitted for hyponatremia as well as as well as pancreatitis. The patient is a poor historian, very confused. Again, does complain of abdominal pain and vomiting. Denies rectal bleeding. Denies hematemesis. Denies shortness of breath. Denies cough. Denies fever or chills. PAST MEDICAL HISTORY: Alcohol abuse. History of anemia. History of pancreatitis. ALLERGIES: No known allergies. MEDICATIONS: None. PAST SURGICAL HISTORY: None. SOCIAL HISTORY: History of smoking, history of drug, alcohol abuse. FAMILY HISTORY: Noncontributory. REVIEW OF SYSTEMS: HEENT: Headaches. RESPIRATORY: Denies shortness of breath. Denies cough. CARDIOVASCULAR: No chest pain. No orthopnea. GASTROINTESTINAL: Reports vomiting and abdominal pain for two days. EXTREMITIES: Denies pain. NEUROLOGIC: Denies change in speech pattern and very confused. PHYSICAL EXAMINATION: VITAL SIGNS: Temperature 98.4, pulse is 97, and blood pressure 118/69. HEENT: PERRLA. NECK: Supple. No lymphadenopathy. CHEST: Clear to auscultation. CARDIOVASCULAR: Regular rate and rhythm. ABDOMEN: Epigastric tenderness. No rebound. Abdomen is soft. EXTREMITIES: No edema. Moves all four extremities. Reflexes on both sides. LABORATORY DATA: WBC of 15.9, hemoglobin 11.3, and platelet of 89,000. Sodium 122, potassium 3.4, BUN of 5, creatinine 1.3, AST of 147, ALT of 86, total bilirubin of 2.1. Lipase is 1124. ASSESSMENT AND PLAN: Elevated LFT due to alcohol, thrombocytopenia due to alcohol, and pancreatitis due to alcohol. No seizures at this point. The patient is confused and requires restraints. Nitesh Melvin M.D. DR: Abilio JOB#: [id number] CC: ROBERT
--- NOTE | 2018-09-23 14:42 | Cardiology Report ---
APPROVED REPORT EKG Measurement Heart [id number] IN [id number] Sinus tachycardia Otherwise normal ECG
[2018-09-23 15:38] VITALS: BP 111/68
--- NOTE | 2018-09-23 16:03 | NUR ---
CASE MANAGEMENT:REVIEW 09/23/18 SI: ALCOHOL WITHDRAWALS. SEIZURE PANCREATITIS 97.8 78 17 111/68 100% ON RA H/H-9.5/30.7 PLT-87 K-3.1 TCK+2061 IS: IVF@100/HR IV KEPPRA Q12 IV PEPCID Q12 IV ZOSYN Q8HRS LIBRIUM PO TID DEPAKOTE PO Q12 K-DUR PO QD IV VENOFER QHS : TELEMETRY STATUS
--- NOTE | 2018-09-23 19:20 | NUR ---
NURSE NOTES: Received report from Brendon Saucedo RN. Pt is sitting in the bed w/o respiratory distress, appearing agitated. D5 NS w/ kcl 20 meq is running at 100ml/h. Bed alarm is on, bed in lowest, and breaks are engaged. Call light and side table, urinal are w/in reach. Will follow plans of care. Addendum: 09/23/18 at 2047 by TAVARES COREA RN Francisco Livingston called and update was given. Reported that daughter also called to 2E station for checking pt's condition.
--- NOTE | 2018-09-23 19:41 | NUR ---
HAND-OFF: Report given to SHAHZAD SNOW.
[2018-09-23 20:00] VITALS: BP 118/68
--- NOTE | 2018-09-23 21:05 | General Progress Note ---
Assessment/Plan Problem List: (1) Pancreatitis ICD Codes: K85.90 - Acute pancreatitis without necrosis or infection, unspecified SNOMED: 88072538 Qualifiers: Qualified Codes: K85.20 - Alcohol induced acute pancreatitis without necrosis or infection (2) Thrombocytopenia ICD Codes: D69.6 - Thrombocytopenia, unspecified SNOMED: 821955321 (3) Hyponatremia ICD Codes: E87.1 - Hypo-osmolality and hyponatremia SNOMED: 32084577 (4) Alcohol withdrawal seizure ICD Codes: F10.239 - Alcohol dependence with withdrawal, unspecified; R56.9 - Unspecified convulsions SNOMED: 092582776 Qualifiers: Qualified Codes: F10.239 - Alcohol dependence with withdrawal, unspecified; R56.9 - Unspecified convulsions (5) Alcohol withdrawal ICD Codes: F10.239 - Alcohol dependence with withdrawal, unspecified SNOMED: 308716006 Qualifiers: Qualified Codes: F10.239 - Alcohol dependence with withdrawal, unspecified (6) Anemia ICD Codes: D64.9 - Anemia, unspecified SNOMED: 493822252 (7) Alcoholic hepatitis ICD Codes: K70.10 - Alcoholic hepatitis without ascites SNOMED: 879180125 (8) Alcoholic pancreatitis ICD Codes: K85.20 - Alcohol induced acute pancreatitis without necrosis or infection SNOMED: 283275513 (9) Alcohol dependence ICD Codes: F10.20 - Alcohol dependence, uncomplicated SNOMED: 38465226 Status: progressing Assessment/Plan: afebrile less pain still confused decrease lipase diet per gi no sz Subjective ROS Limited/Unobtainable: Yes Allergies: Coded Allergies: No Known Allergies (Unverified , 09/21/18) Objective Last 24 Hour Vital Signs Date Time Temp Pulse Resp B/P (MAP) Pulse Ox O2 Delivery O2 Flow Rate FiO2 09/23/18 16:30 75 09/23/18 15:38 97.8 78 17 111/68 (82) 100 09/23/18 14:00 75 92/82 09/23/18 12:00 98.5 81 17 92/82 (85) 99 09/23/18 12:00 75 09/23/18 09:58 Room Air 09/23/18 08:34 97.7 74 17 113/67 (82) 96 09/23/18 08:00 70 09/23/18 05:35 70 153/89 09/23/18 04:00 98.3 97 18 153/89 (110) 99 09/23/18 04:00 73 09/23/18 00:00 97.2 76 18 99/54 (69) 97 09/23/18 00:00 79 09/22/18 21:47 82 112/67 Intake and Output 09/22/18 09/23/18 19:00 07:00 Intake Total 837.5 ml Output Total 600 ml 900 ml Balance -600 ml -62.5 ml Intake IV Total 837.5 ml Output Urine Total 600 ml 900 ml # Voids 2 Laboratory Tests 09/23/18 05:10: White Blood Count 10.1, Red Blood Count 3.96L, Hemoglobin 9.5L, Hematocrit 30.7L , Mean Corpuscular Volume 78L, Mean Corpuscular Hemoglobin 24.1L, Mean Corpuscular Hemoglobin Concent 31.1L, Red Cell Distribution Width 21.7H, Platelet Count 87L, Mean Platelet Volume 13.7H, Neutrophils (%) (Auto) , Lymphocytes (%) (Auto) , Monocytes (%) (Auto) , Eosinophils (%) (Auto) , Basophils (%) (Auto) , Differential Total Cells Counted 100, Neutrophils % ( Manual) 73, Lymphocytes % (Manual) 13L, Monocytes % (Manual) 13H, Eosinophils % (Manual) 1, Basophils % (Manual) 0, Band Neutrophils 0, Platelet Estimate DecreasedL, Platelet Morphology See comment, Giant Platelets Rare, Polychromasia Occasional, Hypochromasia 2+, Anisocytosis 2+, Microcytosis 2+, Sodium Level 134L, Potassium Level 3.1L, Chloride Level 101, Carbon Dioxide Level 22, Anion Gap 11, Blood Urea Nitrogen 6L, Creatinine 1.0, Estimat Glomerular Filtration Rate > 60, Glucose Level 83, Uric Acid 2.9, Calcium Level 8.0L, Phosphorus Level 2.1L, Magnesium Level 2.2, Total Bilirubin 2.0H, Direct Bilirubin 0.9H, Aspartate Amino Transf (AST/SGOT) 140H, Alanine Aminotransferase (ALT/SGPT) 74, Alkaline Phosphatase 53, Total Creatine Kinase 2062H, C-Reactive Protein, Quantitative 6.4H, Pro-B-Type Natriuretic Peptide 339H, Total Protein 7.0, Albumin 3.1L, Globulin 3.9, Albumin/Globulin Ratio 0.8L , Lipase 322 Height (Feet): 5 Height (Inches): 7.00 Weight (Pounds): 150 Neck: supple Cardiovascular: normal rate Respiratory/Chest: lungs clear Abdomen: soft Nitesh Melvin MD September 23, 2018 21:05
[2018-09-23] MEDS: Iron Sucrose 100 MG in NS 55 ML IV SCH (21:59)
--- NOTE | 2018-09-23 22:25 | Psych Consult Progress Note ---
Psychiatry Progress Note Psychiatry Progress Note Subjective the pt cont to be agitated and is confused the pt spit out the librium in the am Medications Current Medications Medications (Trade) Dose Ordered Sig/Socrates Route PRN Reason Start Time Stop Time Status Last Admin Dose Admin Acetaminophen (Tylenol) 500 mg Q6H PRN ORAL Mild Pain/Temp of 100.0/higher 09/21/18 21:45 10/21/18 21:44 Chlordiazepoxide (Librium) 50 mg TID ORAL 09/22/18 18:00 09/29/18 17:59 09/23/18 17:12 Dextrose/ Electrolytes 1,000 ml @ 100 mls/hr Q10H IV 09/21/18 18:30 10/21/18 18:29 09/23/18 08:25 Divalproex Sodium (Depakote) 250 mg EVERY 12 HOURS ORAL 09/22/18 21:00 10/22/18 20:59 09/23/18 21:35 Famotidine (Pepcid I.v.) 20 mg Q12HR IVP 09/21/18 21:00 10/21/18 20:59 09/23/18 22:05 Folic Acid (Folate) 2 mg DAILY ORAL 09/22/18 09:00 10/22/18 08:59 09/22/18 09:04 Iron Sucrose 100 mg/Sodium Chloride 60 ml @ 240 mls/hr BEDTIME IV 09/23/18 21:00 09/27/18 21:14 09/23/18 21:59 Levetiracetam 100 ml @ 400 mls/hr Q12HR IVPB 09/21/18 21:00 10/21/18 20:59 09/23/18 22:00 Lorazepam (Ativan 2mg/ml 1ml) 2 mg Q2H PRN IV for agitation 09/22/18 08:45 09/29/18 08:44 09/23/18 21:25 Ondansetron HCl (Zofran) 4 mg Q6H PRN IVP Nausea & Vomiting 09/21/18 20:30 10/21/18 20:29 Piperacillin Sod/ Tazobactam Sod 3.375 gm/Sodium Chloride 110 ml @ 27.5 mls/hr EVERY 8 HOURS IVPB 09/21/18 22:00 09/26/18 21:59 09/23/18 22:16 Potassium Chloride (K-Dur) 40 meq DAILY ORAL 09/23/18 09:00 10/23/18 08:59 09/23/18 09:41 Propranolol HCl (Inderal) 10 mg Q8HR ORAL 09/22/18 14:00 10/22/18 13:59 09/23/18 21:35 Allergies: Coded Allergies: No Known Allergies (Unverified , 09/21/18) Objective Data Height (Feet): 5 Height (Inches): 7.00 Weight (Pounds): 150 General Appearance: WD/WN, alert, confused, agitated Appearance: disheveled Behavior Mannerisms: poor eye contact Mental Status Exam - Affect: constricted Mental Status Exam - Mood: anxious, agitated Mental Status Exam - Thought P: tangential, confusion, disorganized Perceptual Disturbances: hallucinations Mental Status Exam - Suicidal: not present Assessment/Plan Problem List: (1) Alcohol withdrawal ICD Codes: F10.239 - Alcohol dependence with withdrawal, unspecified SNOMED: 442058928 Qualifiers: Qualified Codes: F10.239 - Alcohol dependence with withdrawal, unspecified (2) Alcohol withdrawal seizure ICD Codes: F10.239 - Alcohol dependence with withdrawal, unspecified; R56.9 - Unspecified convulsions SNOMED: 730378457 Qualifiers: Qualified Codes: F10.239 - Alcohol dependence with withdrawal, unspecified; R56.9 - Unspecified convulsions (3) Alcohol dependence ICD Codes: F10.20 - Alcohol dependence, uncomplicated SNOMED: 11127045 [place] I: alcohol dependence Status: progressing Assessment/Plan: ativan IV increase librium to 50 mg tid the pt was given a cocktail today as he was agitated cont restraints Nabil Burr MD September 23, 2018 22:25
--- NOTE | 2018-09-23 23:32 | Neurology Progress Note ---
Interim History Interim History ROS Limited/Unobtainable: Yes Complaints: AMS/ Weakness Events: None significant Review of Systems All Systems: reviewed and negative except above Objective Physical Exam Last Vital Signs Date Time Temp Pulse Resp B/P (MAP) Pulse Ox O2 Delivery O2 Flow Rate FiO2 09/23/18 21:35 88 118/68 09/23/18 20:00 97.7 20 98 09/23/18 09:58 Room Air 09/21/18 18:30 4.0 Laboratory Tests Test 09/23/18 05:10 White Blood Count 10.1 K/UL (4.8-10.8) Red Blood Count 3.96 M/UL (4.70-6.10) L Hemoglobin 9.5 G/DL (14.2-18.0) L Hematocrit 30.7 % (42.0-52.0) L Mean Corpuscular Volume 78 FL (80-99) L Mean Corpuscular Hemoglobin 24.1 PG (27.0-31.0) L Mean Corpuscular Hemoglobin Concent 31.1 G/DL (32.0-36.0) L Red Cell Distribution Width 21.7 % (11.6-14.8) H Platelet Count 87 K/UL (150-450) L Mean Platelet Volume 13.7 FL (6.5-10.1) H Neutrophils (%) (Auto) % (45.0-75.0) Lymphocytes (%) (Auto) % (20.0-45.0) Monocytes (%) (Auto) % (1.0-10.0) Eosinophils (%) (Auto) % (0.0-3.0) Basophils (%) (Auto) % (0.0-2.0) Differential Total Cells Counted 100 Neutrophils % (Manual) 73 % (45-75) Lymphocytes % (Manual) 13 % (20-45) L Monocytes % (Manual) 13 % (1-10) H Eosinophils % (Manual) 1 % (0-3) Basophils % (Manual) 0 % (0-2) Band Neutrophils 0 % (0-8) Platelet Estimate Decreased L Platelet Morphology See comment Giant Platelets Rare Polychromasia Occasional Hypochromasia 2+ Anisocytosis 2+ Microcytosis 2+ Sodium Level 134 MMOL/L (136-145) L Potassium Level 3.1 MMOL/L (3.5-5.1) L Chloride Level 101 MMOL/L (98-107) Carbon Dioxide Level 22 MMOL/L (21-32) Anion Gap 11 mmol/L (5-15) Blood Urea Nitrogen 6 mg/dL (7-18) L Creatinine 1.0 MG/DL (0.55-1.30) Estimat Glomerular Filtration Rate > 60 mL/min (>60) Glucose Level 83 MG/DL (74-106) Uric Acid 2.9 MG/DL (2.6-7.2) Calcium Level 8.0 MG/DL (8.5-10.1) L Phosphorus Level 2.1 MG/DL (2.5-4.9) L Magnesium Level 2.2 MG/DL (1.8-2.4) Total Bilirubin 2.0 MG/DL (0.2-1.0) H Direct Bilirubin 0.9 MG/DL (0.0-0.3) H Aspartate Amino Transf (AST/SGOT) 140 U/L (15-37) H Alanine Aminotransferase (ALT/SGPT) 74 U/L (12-78) Alkaline Phosphatase 53 U/L (46-116) Total Creatine Kinase 2062 U/L (26-308) H C-Reactive Protein, Quantitative 6.4 mg/dL (0.00-0.90) H Pro-B-Type Natriuretic Peptide 339 pg/mL (0-125) H Total Protein 7.0 G/DL (6.4-8.2) Albumin 3.1 G/DL (3.4-5.0) L Globulin 3.9 g/dL Albumin/Globulin Ratio 0.8 (1.0-2.7) L Lipase 322 U/L (73-393) General: well developed, well nourished, no acute distress Head: normocophalic, atraumatic Neck: no rigidity EENT: benign Neurologic Exam Mental Status: other - Still drowsy and disoriented but easily aroused and following all commands, although drowsy and requiring additional stimuli at times. Impression/Recommendations Problems: (1) Hyponatremia (2) Alcohol withdrawal seizure (3) Alcoholic hepatitis (4) Alcoholic pancreatitis (5) Alcohol withdrawal Status: progressing Recommendations 1. Acute Toxic Metabolic Encephalopathy 2. Alcohol W/D 3. Hypothyroidism 4. Hyponatremia Recs: CIWA protocol - If score > 8 - 1mg Ativan Q3 hrs PRN for agitation and withdrawal symptoms. Banana Bag- Thiamine and Folate supplementation 3% Na Bolusing slowly to increase serum sodium. Restrict free water to 1 L per day, rest IVF. Track Trend LFTS/ Ammonia Consider adding Lactulose for improved hepatobiliary excretion Correct Thyroid as per PM/ Endo recs - Levothyroxine supplementation at 1.6mcg/ kg Q 4 Hour neuro obs- Maintain sleep hygiene by making room dark and quiet in the evening. Frequently reorient the patient, if confused Encourage family/ friend visits Soraya Donis N.P. September 23, 2018 23:32
[2018-09-24] VITALS (7 sets, daily range): BP systolic 90–131; BP diastolic 59–80
--- NOTE | 2018-09-24 01:21 | NUR ---
NURSE NOTES: Pt was cleaned, dried and repositioned. Pt was agitated and anxious for nursing intervention. Redirected and explained interventions in Sami. Pt verbalized the understanding.
[2018-09-24] MEDS: LORazepam Inj 2mg/ml 1ml IV PRN ×8 (03:42→22:15)
--- NOTE | 2018-09-24 03:51 | NUR ---
NURSE NOTES: Pt is sitting in the bed by putting his feet on the ground. Pt was confused and agitated, took off site monitor and gown. Ativan was given and pt was assisted to lay in the bed. laboratory monitor was reapplied. Will continue to monitor.
[2018-09-24] MEDS: Piperacillin/Tazobactam 3.375 GM in NS 110 ML IVPB SCH (05:40)
[2018-09-24] MEDS: Propranolol 10mg tab ORAL SCH ×3 (05:41→22:00)
[2018-09-24] MEDS: D5NS w/KCl 40mEq 1000ml 1,000 ML IV SCH ×2 (05:42→16:04)
[2018-09-24 06:56] LABS: ANION GAP 7 mmol/L (5-15); BLOOD UREA NITROGEN 3 mg/dL (7-18); CALCIUM 8.1 MG/DL (8.5-10.1); CARBON DIOXIDE 24 MMOL/L (21-32); CHLORIDE 103 MMOL/L (98-107); CREATININE 0.9 MG/DL (0.55-1.30); POTASSIUM 3.6 MMOL/L (3.5-5.1); SODIUM 134 MMOL/L (136-145)
--- NOTE | 2018-09-24 07:15 | NUR ---
HAND-OFF: Report given to Brendon Saucedo RN.
--- NOTE | 2018-09-24 07:54 | NUR ---
NURSE NOTES: Received report from GWENDOLYN Reid. Patient in bed unable to follow commands, restless,trying to get out from his bed, disoriented and disorganized. patient is on bilateral soft restrain for safety reasons.IV is intact and patent at this time. Will cont to monitor.
[2018-09-24] MEDS: chlordiazePOXIDE 25mg Cap ORAL SCH ×3 (08:13→18:00)
[2018-09-24] MEDS: levETIRAcetam 500mg/NS100ml 100 ML IVPB SCH (08:25)
[2018-09-24 09:04] LABS: ALANINE AMINOTRANSFERASE 68 U/L (12-78); ALBUMIN 2.9 G/DL (3.4-5.0); ALKALINE PHOSPHATASE 58 U/L (46-116); ASPARTATE AMINO TRANSFERASE 109 U/L (15-37); BILIRUBIN,DIRECT 0.8 MG/DL (0.0-0.3); PHOSPHORUS 2.6 MG/DL (2.5-4.9)
--- NOTE | 2018-09-24 09:23 | Infectious Diseases Prog Note ---
Assessment/Plan Assessment/Plan IMPRESSION: Acute pancreatitis, likely alcoholic anemia thrombocytopenia leukocytosis resolved alcohol withdrawal, hyponatremia Fatty liver R kidney angiomyolipoma. RECOMMENDATION: Discontinue Zosyn. Observe off antibiotic Subjective ROS Limited/Unobtainable: Yes Neurologic: Reports: other - sedated on restraint Allergies: Coded Allergies: No Known Allergies (Unverified , 09/21/18) Objective Vital Signs Last 24 Hour Vital Signs Date Time Temp Pulse Resp B/P (MAP) Pulse Ox O2 Delivery O2 Flow Rate FiO2 09/24/18 09:14 97.8 64 18 131/69 (89) 97 09/24/18 08:00 97.8 64 20 131/69 (89) 96 09/24/18 05:41 69 101/61 09/24/18 04:00 98.0 69 20 101/61 (74) 96 09/24/18 03:57 67 09/24/18 00:04 67 09/24/18 00:00 98.0 71 20 90/59 (69) 100 09/23/18 21:35 88 118/68 09/23/18 21:00 Room Air 09/23/18 20:00 97.7 88 20 118/68 (85) 98 09/23/18 16:30 75 09/23/18 15:38 97.8 78 17 111/68 (82) 100 09/23/18 14:00 75 92/82 09/23/18 12:00 98.5 81 17 92/82 (85) 99 09/23/18 12:00 75 09/23/18 09:58 Room Air Height (Feet): 5 Height (Inches): 7.00 Weight (Pounds): 150 General Appearance: no acute distress HEENT: mucous membranes moist Respiratory/Chest: lungs clear Cardiovascular: normal rate Abdomen: soft, non tender Extremities: no edema Neurologic/Psychiatric: other - sedated Laboratory Tests Test 09/24/18 06:10 Sodium Level 134 MMOL/L (136-145) L Potassium Level 3.6 MMOL/L (3.5-5.1) Chloride Level 103 MMOL/L (98-107) Carbon Dioxide Level 24 MMOL/L (21-32) Anion Gap 7 mmol/L (5-15) Blood Urea Nitrogen 3 mg/dL (7-18) L Creatinine 0.9 MG/DL (0.55-1.30) Estimat Glomerular Filtration Rate > 60 mL/min (>60) Glucose Level 111 MG/DL (74-106) H Calcium Level 8.1 MG/DL (8.5-10.1) L Phosphorus Level 2.6 MG/DL (2.5-4.9) Magnesium Level 2.1 MG/DL (1.8-2.4) Total Bilirubin 2.0 MG/DL (0.2-1.0) H Direct Bilirubin 0.8 MG/DL (0.0-0.3) H Aspartate Amino Transf (AST/SGOT) 109 U/L (15-37) H Alanine Aminotransferase (ALT/SGPT) 68 U/L (12-78) Alkaline Phosphatase 58 U/L (46-116) Total Protein 6.7 G/DL (6.4-8.2) Albumin 2.9 G/DL (3.4-5.0) L Current Medications Medications (Trade) Dose Ordered Sig/Socrates Route PRN Reason Start Time Stop Time Status Last Admin Dose Admin Acetaminophen (Tylenol) 500 mg Q6H PRN ORAL Mild Pain/Temp of 100.0/higher 09/21/18 21:45 10/21/18 21:44 Chlordiazepoxide (Librium) 50 mg TID ORAL 09/22/18 18:00 09/29/18 17:59 09/24/18 08:13 Dextrose/ Electrolytes 1,000 ml @ 100 mls/hr Q10H IV 09/21/18 18:30 10/21/18 18:29 09/24/18 05:42 Divalproex Sodium (Depakote) 250 mg EVERY 12 HOURS ORAL 09/22/18 21:00 10/22/18 20:59 09/24/18 08:21 Famotidine (Pepcid I.v.) 20 mg Q12HR IVP 09/21/18 21:00 10/21/18 20:59 09/24/18 08:14 Folic Acid (Folate) 2 mg DAILY ORAL 09/22/18 09:00 10/22/18 08:59 09/24/18 08:13 Iron Sucrose 100 mg/Sodium Chloride 60 ml @ 240 mls/hr BEDTIME IV 09/23/18 21:00 09/27/18 21:14 09/23/18 21:59 Levetiracetam 100 ml @ 400 mls/hr Q12HR IVPB 09/21/18 21:00 10/21/18 20:59 09/24/18 08:25 Lorazepam (Ativan 2mg/ml 1ml) 2 mg Q2H PRN IV for agitation 09/22/18 08:45 09/29/18 08:44 09/24/18 08:13 Ondansetron HCl (Zofran) 4 mg Q6H PRN IVP Nausea & Vomiting 09/21/18 20:30 10/21/18 20:29 Piperacillin Sod/ Tazobactam Sod 3.375 gm/Sodium Chloride 110 ml @ 27.5 mls/hr EVERY 8 HOURS IVPB 09/21/18 22:00 09/26/18 21:59 09/24/18 05:40 Potassium Chloride (K-Dur) 40 meq DAILY ORAL 09/23/18 09:00 10/23/18 08:59 09/24/18 08:13 Propranolol HCl (Inderal) 10 mg Q8HR ORAL 09/22/18 14:00 10/22/18 13:59 09/23/18 21:35 Tyrell Yee MD September 24, 2018 09:23
--- NOTE | 2018-09-24 10:28 | GI Progress Note ---
Assessment/Plan Problems: (1) Alcoholic pancreatitis ICD Codes: K85.20 - Alcohol induced acute pancreatitis without necrosis or infection SNOMED: 619787337 (2) Alcoholic hepatitis ICD Codes: K70.10 - Alcoholic hepatitis without ascites SNOMED: 691480796 (3) Anemia ICD Codes: D64.9 - Anemia, unspecified SNOMED: 805087170 (4) Alcohol withdrawal ICD Codes: F10.239 - Alcohol dependence with withdrawal, unspecified SNOMED: 385518351 Qualifiers: Qualified Codes: F10.239 - Alcohol dependence with withdrawal, unspecified (5) Pancreatitis ICD Codes: K85.90 - Acute pancreatitis without necrosis or infection, unspecified SNOMED: 01902933 Qualifiers: Qualified Codes: K85.20 - Alcohol induced acute pancreatitis without necrosis or infection (6) Thrombocytopenia ICD Codes: D69.6 - Thrombocytopenia, unspecified SNOMED: 723978298 (7) Hyponatremia ICD Codes: E87.1 - Hypo-osmolality and hyponatremia SNOMED: 81030571 Status: stable, unchanged Status Narrative Discussed with Dr. Wright. Assessment/Plan Discriminant function calculated, no need for glucocorticoid therapy. Advance diet as tolerated, FLD Ativan as needed Folate anemia work up OB stool r/o GI bleed monitor H&H, prn transfusions bowel regime ppi fu labs avoid alcohol trend LFTs The patient was seen and examined at bedside and all new and available data was reviewed in the patients chart. I agree with the above findings, impression and plan. (Patient seen earlier today. Signature stamp does not reflect patient encounter time.). - Daniel Wright MD Subjective Subjective limited Objective Last 24 Hour Vital Signs Date Time Temp Pulse Resp B/P (MAP) Pulse Ox O2 Delivery O2 Flow Rate FiO2 09/24/18 09:42 Room Air 09/24/18 09:14 97.8 64 18 131/69 (89) 97 09/24/18 08:00 97.8 64 20 131/69 (89) 96 09/24/18 05:41 69 101/61 09/24/18 04:00 98.0 69 20 101/61 (74) 96 09/24/18 03:57 67 09/24/18 00:04 67 09/24/18 00:00 98.0 71 20 90/59 (69) 100 09/23/18 21:35 88 118/68 09/23/18 21:00 Room Air 09/23/18 20:00 97.7 88 20 118/68 (85) 98 09/23/18 16:30 75 09/23/18 15:38 97.8 78 17 111/68 (82) 100 09/23/18 14:00 75 92/82 09/23/18 12:00 98.5 81 17 92/82 (85) 99 09/23/18 12:00 75 Intake and Output 09/23/18 09/24/18 19:00 07:00 Intake Total 1100 ml 890.0 ml Balance 1100 ml 890.0 ml Intake IV Total 1100 ml 890.0 ml # Voids 1 3 Laboratory Tests Test 09/24/18 06:10 Sodium Level 134 MMOL/L (136-145) L Potassium Level 3.6 MMOL/L (3.5-5.1) Chloride Level 103 MMOL/L (98-107) Carbon Dioxide Level 24 MMOL/L (21-32) Anion Gap 7 mmol/L (5-15) Blood Urea Nitrogen 3 mg/dL (7-18) L Creatinine 0.9 MG/DL (0.55-1.30) Estimat Glomerular Filtration Rate > 60 mL/min (>60) Glucose Level 111 MG/DL (74-106) H Calcium Level 8.1 MG/DL (8.5-10.1) L Phosphorus Level 2.6 MG/DL (2.5-4.9) Magnesium Level 2.1 MG/DL (1.8-2.4) Total Bilirubin 2.0 MG/DL (0.2-1.0) H Direct Bilirubin 0.8 MG/DL (0.0-0.3) H Aspartate Amino Transf (AST/SGOT) 109 U/L (15-37) H Alanine Aminotransferase (ALT/SGPT) 68 U/L (12-78) Alkaline Phosphatase 58 U/L (46-116) Total Protein 6.7 G/DL (6.4-8.2) Albumin 2.9 G/DL (3.4-5.0) L Height (Feet): 5 Height (Inches): 7.00 Weight (Pounds): 150 General Appearance: WD/WN, no apparent distress, alert Cardiovascular: normal rate Respiratory/Chest: normal breath sounds, no respiratory distress Abdominal Exam: normal bowel sounds, non tender, soft Extremities: normal range of motion, non-tender Susan Burnette NP September 24, 2018 10:28
--- NOTE | 2018-09-24 13:58 | NUR ---
Social Work This Sw made an attempt to meet with patient (due to substance abuse). Patient continues to appear that he is going through detox (confused and agitated with staff). SW to follow when more alert/oriented.
--- NOTE | 2018-09-24 14:02 | NUR ---
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 DYSPHAGIA RISK FACTORS FOR THIS 58 Y.O. KHMER-SPEAKING ([place]) MALE: ACUTE ALCOHOL WITHDRAWAL AND DETOX, VOMITING EPISODE, GENERALIZED TONIC/CLONIC SEIZURE (POST ICTAL), WEAK, IMPENDING DELIRIUM TREMENS, ALCOHOLIC INTOXICATION. STOPPED DRINKING ALCOHOL [address] HEAD SCAN MILD BRAIN ATROPHY AND LUNGS ARE CLEAR NOR. NO POLST NOR AD REGARDING TUBE FEEDING PREFERENCES. ON FULL LIQUIDS BUT PER RN, PATIENT APPEARED TO TOLERATE PUDDING/CRUSHED MEDS BUT ASPIRATED ON JELLO AND SPIT IT OUT. PATIENT IS ALERT BUT AGITATED. STATES IN KHMER THAT HE WAS BORN IN [place] BUT DOES NOT SPEAK [place]. 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 PER RN, HE NEEDS ATIVAN BECAUSE OF HIS AGITATION AND HE NEEDS WRIST RESTRAINTS. GROSSLY ADEQUATE DENTITION WITH SOME MISSING TEETH. INITIAL IMPRESSIONS: S/S OF PHARYNGEAL DYSPHAGIA WITH PHLEGM OR RESIDUAL JELLO (GIVEN BY RN EARLIER) WITH WET VOICE. UNALBE TO COUGH UP AND SPIT OUT THIS RESIDUE. TONGUE SPEED IS SLOW AND HAS REDUCED ELEVATION AND LATERALIZATION BILATERALLY. TONGUE IS ALSO WEAK AND HAS SOME MIN PUDDING RESIDUE ON THE RIGHT SIDE OF HIS TONGUE (FROM MEDS AND PUDDING RN GAVE HIM EARLIER). COUGH IS WEAK AND UNPRODUCTIVE (VOLITIONAL AND SPONTANEOUS) SUCTION SET UP AND REMOVED BY RN. HOLD ON PO TRIALS GIVEN THAT PT HAS HIGH RISK FOR SILENT ASPIRATION AND IS OVERTLY ASPIRATION WITH JELLO. PT WILL ALSO NOT BE ALERT ENOUGH FOR PO INTAKE IF HE IS SEDATED WITH ATIVAN. RECOMMENDATIONS: MAKE NPO, INSERT 12 ALGERIAN NGT AND CONTINUE WITH ORAL CARE. CONSIDER MOD BARIUM SWALLOW STUDY ON THURSDAY IF READY TO FURTHER ASSESS SWALLOW, DETERMINE SILENT ASP AND ATTEMPT TRIAL TX. DYSPHAGIA MANAGEMENT/TX AND COG-COM EVAL/TX EDUCATED/TRAINED RN (LORI) IN POSTED ORAL CARE AND OROPHARYNGEAL SUCTION. D/W RN, CEM, AND DR KIM
--- NOTE | 2018-09-24 15:36 | General Progress Note ---
Assessment/Plan Status: stable, unchanged Assessment/Plan: Assessment and Recs: # Pancytopenia -- multiple etiologies could be related to underlying liver disease, in this case is very likely related to etoh ABUse and myelosuppression of the bone marrow, very common to alcoholics --> peripheral smear has been ordered and does not show significant abnormalities --> Medications have been reviewed --> Continue to monitor for improvement, trend cbc --> Hep panel and HIV have been reviewed and are negative --> US abd has been reviewed, fatty infiltration is noted --> consider other causes, infections that could contribute --> Reverse isolation if ANC is <2000 --> Give neupogen if ANC <1000 --> Transfuse if hgb <7, with 1 unit prbc # Anemia of iron deficiency, ferritin is <50 --> As per gi eval as needed --> No evidence of hemolysis is noted, peripheral smear has been reviewed. --> Hgb goal >7. Transfuse prn. --> Medications have been reviewed --> iv iron x 5 days started # Alcohol withdrawal --> Monitor for alcohol withdrawal seizure --> currently w/o seizures # Impending delirium tremens # Hyponatremia # Pancreatitis # HYperbilirubinemia as per above The timing of this note does not necessarily reflect the time of the patient was seen. Greatly appreciate consultation! Subjective Constitutional: Denies: no symptoms, chills, diaphoresis, fever, malaise, weakness, other HEENT: Denies: no symptoms, eye pain, blurred vision, tearing, double vision, ear pain, ear discharge, nose pain, nose congestion, throat pain, throat swelling, mouth pain, mouth swelling, other Cardiovascular: Denies: no symptoms, chest pain, edema, irregular heart rate, lightheadedness, palpitations, syncope, other Respiratory: Denies: no symptoms, cough, orthopnea, shortness of breath, SOB with excertion, SOB at rest, sputum, stridor, wheezing, other Gastrointestinal/Abdominal: Denies: no symptoms, abdomen distended, abdominal pain, black stools, tarry stools, blood in stool, constipated, diarrhea, difficulty swallowing, nausea, poor appetite, poor fluid intake, rectal bleeding , vomiting, other Genitourinary: Denies: no symptoms, burning, discharge, frequency, flank pain, hematuria, incontinence, pain, urgency, other Neurologic/Psychiatric: Denies: no symptoms, anxiety, depressed, emotional problems, headache, numbness, paresthesia, pre-existing deficit, seizure, tingling, tremors, weakness, other Endocrine: Denies: no symptoms, excessive sweating, flushing, intolerance to cold, intolerance to heat, increased hunger, increased thirst, increased urine, unexplained weight gain, unexplained weight loss, other Allergies: Coded Allergies: No Known Allergies (Unverified , 09/21/18) Subjective 09/23: no events noted, less altered, cbc reviewed 09/24: labs reviewed, no events, no f/c Objective Last 24 Hour Vital Signs Date Time Temp Pulse Resp B/P (MAP) Pulse Ox O2 Delivery O2 Flow Rate FiO2 09/24/18 12:42 72 125/80 09/24/18 12:00 98.1 72 18 125/80 (95) 97 09/24/18 09:42 Room Air 09/24/18 09:14 97.8 64 18 131/69 (89) 97 09/24/18 08:00 97.8 64 20 131/69 (89) 96 09/24/18 08:00 75 09/24/18 05:41 69 101/61 09/24/18 04:00 98.0 69 20 101/61 (74) 96 09/24/18 03:57 67 09/24/18 00:04 67 09/24/18 00:00 98.0 71 20 90/59 (69) 100 09/23/18 21:35 88 118/68 09/23/18 21:00 Room Air 09/23/18 20:00 97.7 88 20 118/68 (85) 98 09/23/18 16:30 75 09/23/18 15:38 97.8 78 17 111/68 (82) 100 Intake and Output 09/23/18 09/24/18 19:00 07:00 Intake Total 1100 ml 890.0 ml Balance 1100 ml 890.0 ml Intake IV Total 1100 ml 890.0 ml # Voids 1 3 Laboratory Tests 09/24/18 06:10: Sodium Level 134L, Potassium Level 3.6, Chloride Level 103, Carbon Dioxide Level 24, Anion Gap 7, Blood Urea Nitrogen 3L, Creatinine 0.9, Estimat Glomerular Filtration Rate > 60, Glucose Level 111H, Calcium Level 8.1L, Phosphorus Level 2.6, Magnesium Level 2.1, Total Bilirubin 2.0H, Direct Bilirubin 0.8H, Aspartate Amino Transf (AST/SGOT) 109H, Alanine Aminotransferase (ALT/SGPT) 68, Alkaline Phosphatase 58, Total Protein 6.7, Albumin 2.9L Height (Feet): 5 Height (Inches): 7.00 Weight (Pounds): 150 Objective Sp02 EP: reviewed, normal General Appearance: well appearing, no apparent distress, GCS 15 Head: normocephalic Eyes: bilateral eye normal inspection, bilateral eye PERRL, bilateral eye EOMI ENT: moist mucus membranes Neck: supple Respiratory: lungs clear, normal breath sounds Cardiovascular: regular rate, rhythm, 2+ radial (R) Gastrointestinal: normal inspection, normal bowel sounds, non tender, no mass, non-distended Musculoskeletal: back normal, gait/station normal, normal range of motion Neurologic: alert, oriented x3, hemp fiber taker off III-XII nml as tested Psychiatric: anxious Skin: normal inspection, warm/dry Avery Bell MD September 24, 2018 15:36
--- NOTE | 2018-09-24 15:42 | NUR ---
RD ASSESSMENT & RECOMMENDATIONS SEE CARE ACTIVITY FOR COMPLETE ASSESSMENT DAILY ESTIMATED NEEDS: Needs based on liver dysfunction, 66kg 25-30 kcals/kg 5816-0106 total kcals 1-1.5 g protein/kg 66-99 g total protein 25-30 mL/kg 6935-4703 total fluid mLs NUTRITION DIAGNOSIS: Swallowing difficulty R/T dysphagia, confusion w/ alcohol withdrawal as evidenced by LINER MAN recommends NPO at this time, w/ an order for NGT insertion. CURRENT DIET: FLD PO DIET RECOMMENDATIONS: WHEN SAFE FOR PO-> LOW NA, LOW FAT/ texture per LINER MAN ENTERAL NUTRITION RECOMMENDATIONS: Jevity 1.2 @ 65ml/hr x 24 hrs to provide 1560ml, 1872kcal, 86g prot, 1259ml free water * W/ GI access, initiate Jevity 1.2 @ 15ml/hr x 6 hrs * Advance 10ml q 4-6 hrs as tolerated to goal rate. * HOB over 30 degrees/ water flush per MD. ADDITIONAL RECOMMENDATIONS: * Calibrated bedscale wt for accurate CBW * Monitor lytes daily w/ TF, replete as needed * Monitor ability for PO intake
--- NOTE | 2018-09-24 16:13 | NUR ---
CASE MANAGEMENT:REVIEW 09/24/18 SI: ALCOHOL WITHDRAWALS. SEIZURE PANCREATITIS 98.1 72 18 125/80 97% ON RA IS: IVF@100/HR IV KEPPRA Q12 IV PEPCID Q12 IV ZOSYN Q8HRS LIBRIUM PO TID DEPAKOTE PO Q12 K-DUR PO QD IV VENOFER QHS : TELEMETRY STATUS
--- NOTE | 2018-09-24 16:16 | Nephrology Progress Note ---
Assessment/Plan Problem List: (1) Hyponatremia (2) Pancreatitis (3) Alcohol withdrawal seizure (4) Anemia Assessment HypoNatremia Alcoholic liver disease and pancreatitis ETOH Withdraw Sz Lipase lowering Plan clear liquids hydrate librium thiamin monitor lytes and lipase Keppra Folate gastric support Subjective ROS Limited/Unobtainable: No Constitutional: Reports: malaise, weakness Objective Objective Last 24 Hour Vital Signs Date Time Temp Pulse Resp B/P (MAP) Pulse Ox O2 Delivery O2 Flow Rate FiO2 09/24/18 12:42 72 125/80 09/24/18 12:00 98.1 72 18 125/80 (95) 97 09/24/18 09:42 Room Air 09/24/18 09:14 97.8 64 18 131/69 (89) 97 09/24/18 08:00 97.8 64 20 131/69 (89) 96 09/24/18 08:00 75 09/24/18 05:41 69 101/61 09/24/18 04:00 98.0 69 20 101/61 (74) 96 09/24/18 03:57 67 09/24/18 00:04 67 09/24/18 00:00 98.0 71 20 90/59 (69) 100 09/23/18 21:35 88 118/68 09/23/18 21:00 Room Air 09/23/18 20:00 97.7 88 20 118/68 (85) 98 09/23/18 16:30 75 Intake and Output 09/23/18 09/24/18 18:59 06:59 Intake Total 1100 ml 790.0 ml Balance 1100 ml 790.0 ml Intake IV Total 1100 ml 790.0 ml # Voids 1 3 Laboratory Tests 09/24/18 06:10: Sodium Level 134L, Potassium Level 3.6, Chloride Level 103, Carbon Dioxide Level 24, Anion Gap 7, Blood Urea Nitrogen 3L, Creatinine 0.9, Estimat Glomerular Filtration Rate > 60, Glucose Level 111H, Calcium Level 8.1L, Phosphorus Level 2.6, Magnesium Level 2.1, Total Bilirubin 2.0H, Direct Bilirubin 0.8H, Aspartate Amino Transf (AST/SGOT) 109H, Alanine Aminotransferase (ALT/SGPT) 68, Alkaline Phosphatase 58, Total Protein 6.7, Albumin 2.9L Height (Feet): 5 Height (Inches): 7.00 Weight (Pounds): 150 General Appearance: no apparent distress, confused Cardiovascular: tachycardia Respiratory/Chest: decreased breath sounds Abdomen: distended Mode Krishnan MD September 24, 2018 16:16
--- NOTE | 2018-09-24 16:55 | NUR ---
NURSE NOTES: NG tube inserted ( ORDERED). PATIENT TOLERATED WELL KUB ordered per protocol WILL CONTINUE TO MONITOR.
--- NOTE | 2018-09-24 18:05 | Diagnostic Imaging Report ---
History: TUBE PLCMT Exam: XR ABDOMEN single image Comparison: FINDINGS/IMPRESSION: Nasogastric tube loops in the proximal body of the stomach with side-port at the fundus and the tip near the GE junction.
--- NOTE | 2018-09-24 19:16 | NUR ---
HAND-OFF: Report given to Junior COREA RN.
--- NOTE | 2018-09-24 19:20 | NUR ---
NURSE NOTES: Received report from Ruthie, GWENDOLYN. Pt is awake, very agitated and removed NG tube, condom cath.and monitoring analyst. He also tried to get out of the bed even with b.soft wrist restrain are applied on. He is able move his upper body and lower body well. IV is at LFA 20G w.D5 NS w/ KCL 40 meq. is running at 100cc/h. A&O x1 in [place]. Bed alarm is on, bed in the lowest and breaks are engaged. Call light and side table. Ativan 2mg was given. Will follow plans of care.
--- NOTE | 2018-09-24 20:43 | General Progress Note ---
Assessment/Plan Problem List: (1) Pancreatitis ICD Codes: K85.90 - Acute pancreatitis without necrosis or infection, unspecified SNOMED: 03430511 Qualifiers: Qualified Codes: K85.20 - Alcohol induced acute pancreatitis without necrosis or infection (2) Thrombocytopenia ICD Codes: D69.6 - Thrombocytopenia, unspecified SNOMED: 351629082 (3) Hyponatremia ICD Codes: E87.1 - Hypo-osmolality and hyponatremia SNOMED: 85596024 (4) Alcohol withdrawal seizure ICD Codes: F10.239 - Alcohol dependence with withdrawal, unspecified; R56.9 - Unspecified convulsions SNOMED: 699629988 Qualifiers: Qualified Codes: F10.239 - Alcohol dependence with withdrawal, unspecified; R56.9 - Unspecified convulsions (5) Alcohol withdrawal ICD Codes: F10.239 - Alcohol dependence with withdrawal, unspecified SNOMED: 670741425 Qualifiers: Qualified Codes: F10.239 - Alcohol dependence with withdrawal, unspecified (6) Anemia ICD Codes: D64.9 - Anemia, unspecified SNOMED: 828497376 (7) Alcoholic hepatitis ICD Codes: K70.10 - Alcoholic hepatitis without ascites SNOMED: 041294903 (8) Alcoholic pancreatitis ICD Codes: K85.20 - Alcohol induced acute pancreatitis without necrosis or infection SNOMED: 287500152 (9) Alcohol dependence ICD Codes: F10.20 - Alcohol dependence, uncomplicated SNOMED: 01357998 Status: stable, unchanged Assessment/Plan: etoh abuse ams elevated lft is improving etoh pancreatitis afebrile no sz Subjective ROS Limited/Unobtainable: Yes Allergies: Coded Allergies: No Known Allergies (Unverified , 09/21/18) Objective Last 24 Hour Vital Signs Date Time Temp Pulse Resp B/P (MAP) Pulse Ox O2 Delivery O2 Flow Rate FiO2 09/24/18 16:18 98.1 67 18 113/65 (81) 100 09/24/18 16:00 66 09/24/18 12:42 72 125/80 09/24/18 12:00 70 09/24/18 12:00 98.1 72 18 125/80 (95) 97 09/24/18 09:42 Room Air 09/24/18 09:14 97.8 64 18 131/69 (89) 97 09/24/18 08:00 97.8 64 20 131/69 (89) 96 09/24/18 08:00 75 09/24/18 05:41 69 101/61 09/24/18 04:00 98.0 69 20 101/61 (74) 96 09/24/18 03:57 67 09/24/18 00:04 67 09/24/18 00:00 98.0 71 20 90/59 (69) 100 09/23/18 21:35 88 118/68 09/23/18 21:00 Room Air Intake and Output 09/23/18 09/24/18 18:59 06:59 Intake Total 1100 ml 790.0 ml Balance 1100 ml 790.0 ml Intake IV Total 1100 ml 790.0 ml # Voids 1 3 Laboratory Tests 09/24/18 06:10: Sodium Level 134L, Potassium Level 3.6, Chloride Level 103, Carbon Dioxide Level 24, Anion Gap 7, Blood Urea Nitrogen 3L, Creatinine 0.9, Estimat Glomerular Filtration Rate > 60, Glucose Level 111H, Calcium Level 8.1L, Phosphorus Level 2.6, Magnesium Level 2.1, Total Bilirubin 2.0H, Direct Bilirubin 0.8H, Aspartate Amino Transf (AST/SGOT) 109H, Alanine Aminotransferase (ALT/SGPT) 68, Alkaline Phosphatase 58, Total Protein 6.7, Albumin 2.9L Height (Feet): 5 Height (Inches): 7.00 Weight (Pounds): 150 Neck: supple Cardiovascular: normal rate Respiratory/Chest: lungs clear Nitesh Melvin MD September 24, 2018 20:43
--- NOTE | 2018-09-24 22:14 | Neurology Progress Note ---
Interim History Interim History ROS Limited/Unobtainable: Yes Complaints: AMS/ Weakness Events: Remains intermittently confused but improving Review of Systems Neuro Review of Systems Reporting some back pain Objective Physical Exam Last Vital Signs Date Time Temp Pulse Resp B/P (MAP) Pulse Ox O2 Delivery O2 Flow Rate FiO2 09/24/18 20:30 71 09/24/18 20:00 97.5 20 102/63 (76) 99 09/24/18 09:42 Room Air 09/21/18 18:30 4.0 Laboratory Tests Test 09/24/18 06:10 Sodium Level 134 MMOL/L (136-145) L Potassium Level 3.6 MMOL/L (3.5-5.1) Chloride Level 103 MMOL/L (98-107) Carbon Dioxide Level 24 MMOL/L (21-32) Anion Gap 7 mmol/L (5-15) Blood Urea Nitrogen 3 mg/dL (7-18) L Creatinine 0.9 MG/DL (0.55-1.30) Estimat Glomerular Filtration Rate > 60 mL/min (>60) Glucose Level 111 MG/DL (74-106) H Calcium Level 8.1 MG/DL (8.5-10.1) L Phosphorus Level 2.6 MG/DL (2.5-4.9) Magnesium Level 2.1 MG/DL (1.8-2.4) Total Bilirubin 2.0 MG/DL (0.2-1.0) H Direct Bilirubin 0.8 MG/DL (0.0-0.3) H Aspartate Amino Transf (AST/SGOT) 109 U/L (15-37) H Alanine Aminotransferase (ALT/SGPT) 68 U/L (12-78) Alkaline Phosphatase 58 U/L (46-116) Total Protein 6.7 G/DL (6.4-8.2) Albumin 2.9 G/DL (3.4-5.0) L General: well developed, well nourished Head: normocophalic Neck: no rigidity EENT: benign Neurologic Exam Mental Status: awake, other - Still confused, apparently cycling between normal interaction and conversation and confusion. Language: other - Possibly delirious - hypoactive at times Cranial Nerve II: fundus normal, visual restrepo Cranial Nerves III, IV, : PERRLA, EOMI Cranial Nerve V: normal facial sensations Cranial Nerve VII: no facial asymmetry Cranial Nerve VIII: normal hearing Cranial Nerve IX: normal palate elevation Cranial Nerve X: no voice hoarseness Cranial Nerve XI: SCM symmetric Cranial Nerve XII: tongue midline Motor System: normal muscle tone, strength 5/5 Sensory: normal pinprick, normal light touch Coordination: normal finger to nose bilaterally, normal heel to singh bilaterally Deep Tendon Reflexes: 2+ bicep (L), 2+ bicep (R), 2+ tricep (L), 2+ tricep (R) , 2+ brachioradialis (L), 2+ brachioradialis (R), 2+ knee (L), 2+ knee (R), 2+ ankle (L), 2+ ankle (R) Reflexes: flexor plantar (L), flexor plantar (R); extensor plantar (L), extensor plantar (R) Impression/Recommendations Problems: (1) Hyponatremia (2) Alcohol withdrawal seizure (3) Alcoholic hepatitis (4) Alcoholic pancreatitis (5) Alcohol withdrawal (6) Acute alcohol intoxication delirium with moderate or severe use disorder (7) AMS Status: stable, unchanged Recommendations 1. Acute Toxic Metabolic Encephalopathy 2. Alcohol W/D 3. Hypothyroidism 4. Hyponatremia Recs: CIWA protocol - If score > 8 - 1mg Ativan Q3 hrs PRN for agitation and withdrawal symptoms. Banana Bag- Thiamine and Folate supplementation 3% Na Bolusing slowly to increase serum sodium. Restrict free water to 1 L per day, rest IVF. Track Trend LFTS/ Ammonia Consider adding Lactulose for improved hepatobiliary excretion Correct Thyroid as per PM/ Endo recs - Levothyroxine supplementation at 1.6mcg/ kg- Started Q 4 Hour neuro obs- Maintain sleep hygiene by making room dark and quiet in the evening. Frequently reorient the patient, if confused Encourage family/ friend visits PT/OT OOB in chair Discourage/ Avoid / Minimize use of benzodiazapenes , anticholinergics, or opioid narcotics. Soraya Donis N.P. September 24, 2018 22:14
[2018-09-24] MEDS: Iron Sucrose 100 MG in NS 55 ML IV SCH (22:25)
--- NOTE | 2018-09-24 23:34 | Psych Consult Progress Note ---
Psychiatry Progress Note Psychiatry Progress Note Subjective the pt cont to be agitated the pt is confused Medications Current Medications Medications (Trade) Dose Ordered Sig/Socrates Route PRN Reason Start Time Stop Time Status Last Admin Dose Admin Acetaminophen (Tylenol) 500 mg Q6H PRN ORAL Mild Pain/Temp of 100.0/higher 09/21/18 21:45 10/21/18 21:44 Chlordiazepoxide (Librium) 50 mg TID ORAL 09/22/18 18:00 09/29/18 17:59 09/24/18 12:41 Dextrose/ Electrolytes 1,000 ml @ 100 mls/hr Q10H IV 09/21/18 18:30 10/21/18 18:29 09/24/18 16:04 Divalproex Sodium (Depakote) 250 mg EVERY 12 HOURS ORAL 09/22/18 21:00 10/22/18 20:59 09/24/18 08:21 Folic Acid (Folate) 2 mg DAILY ORAL 09/22/18 09:00 10/22/18 08:59 09/24/18 08:13 Iron Sucrose 100 mg/Sodium Chloride 60 ml @ 240 mls/hr BEDTIME IV 09/23/18 21:00 09/27/18 21:14 09/24/18 22:25 Levetiracetam (Keppra) 500 mg Q12HR ORAL 09/24/18 21:00 10/24/18 20:59 Lorazepam (Ativan 2mg/ml 1ml) 2 mg Q2H PRN IV for agitation 09/22/18 08:45 09/29/18 08:44 09/24/18 22:15 Ondansetron HCl (Zofran) 4 mg Q6H PRN IVP Nausea & Vomiting 09/21/18 20:30 10/21/18 20:29 Pantoprazole (Protonix) 40 mg EVERY 12 HOURS ORAL 09/24/18 21:00 10/24/18 20:59 Potassium Chloride (K-Dur) 40 meq DAILY ORAL 09/23/18 09:00 10/23/18 08:59 09/24/18 08:13 Propranolol HCl (Inderal) 10 mg Q8HR ORAL 09/22/18 14:00 10/22/18 13:59 09/24/18 12:42 Thiamine HCl (Vitamin B1) 100 mg DAILY ORAL 09/25/18 09:00 10/25/18 08:59 Neurological/Psychiatric: Reports: anxiety, depressed, emotional problems Allergies: Coded Allergies: No Known Allergies (Unverified , 09/21/18) Objective Data Height (Feet): 5 Height (Inches): 7.00 Weight (Pounds): 150 General Appearance: confused, agitated Appearance: disheveled Behavior Mannerisms: poor eye contact Mental Status Exam - Affect: constricted Mental Status Exam - Mood: agitated Mental Status Exam - Thought P: illogical, confusion Mental Status Exam - Thought C: delusions (specify) Perceptual Disturbances: auditory Mental Status Exam - Suicidal: not present Assessment/Plan Problem List: (1) Alcohol withdrawal ICD Codes: F10.239 - Alcohol dependence with withdrawal, unspecified SNOMED: 715085473 Qualifiers: Qualified Codes: F10.239 - Alcohol dependence with withdrawal, unspecified (2) Alcohol withdrawal seizure ICD Codes: F10.239 - Alcohol dependence with withdrawal, unspecified; R56.9 - Unspecified convulsions SNOMED: 400910079 Qualifiers: Qualified Codes: F10.239 - Alcohol dependence with withdrawal, unspecified; R56.9 - Unspecified convulsions (3) Alcohol dependence ICD Codes: F10.20 - Alcohol dependence, uncomplicated SNOMED: 50672173 Status: stable, unchanged Assessment/Plan: Ativan IV increase Librium to 50 mg tid cont restraints Nabil Burr MD September 24, 2018 23:34
[2018-09-25] VITALS: BP 129/74
--- NOTE | 2018-09-25 | NUR ---
NURSE NOTES: All PO is on hold until NG tube insertion is cleared to be used.
[2018-09-25] MEDS: D5NS w/KCl 40mEq 1000ml 1,000 ML IV SCH ×3 (02:05→14:04)
--- NOTE | 2018-09-25 02:07 | NUR ---
NURSE NOTES: Pt had BM, cleaned, dried and repositioned. NG tube inserted and KUB XR is in pending. Pt tolerated well. SR in the monitor. No acute distress noted. Will continue to monitor.
--- NOTE | 2018-09-25 02:42 | Diagnostic Imaging Report ---
EXAM: XR Abdomen, 1 View CLINICAL HISTORY: NGT TECHNIQUE: Frontal supine view of the abdomen/pelvis. COMPARISON: No relevant prior studies available. FINDINGS: The image is centered over the hemidiaphragms. The lower abdomen and pelvis are not included in the imaging field. Lower thorax: Probable mild atelectasis at the lung bases. Gastrointestinal tract: Unremarkable. No dilation. Bones/joints: Degenerative changes of the thoracolumbar spine. Tubes, lines and devices: A nasogastric tube is seen with tip projected in the region of the antrum of the stomach or first or second portion of the duodenum. Other findings: There is some prominence of the cardiomediastinal silhouette. IMPRESSION: 1. A nasogastric tube is seen with tip projected in the region of the antrum of the stomach or first or second portion of the duodenum. 2. Probable mild atelectasis at the lung bases.
[2018-09-25 04:00] VITALS: BP 121/74
[2018-09-25] MEDS: LORazepam Inj 2mg/ml 1ml IV PRN ×3 (04:41→22:44)
--- NOTE | 2018-09-25 05:15 | NUR ---
NURSE NOTES: Called GANGA Burnette and notified that NG tube was adjusted according to the KUB XR result, and auscultated. TRAFFIC [employer] ATTORNEY ordered 2nd KUB XR. Order carried out. Also, it is notified TRAFFIC LAW ATTORNEY that holding PO med of Keppra 500mg, Depakote 250mg, Inderal 10mg which were scheduled last night, d/t NG tube placement was not confirmed. NNO for it.
[2018-09-25] MEDS: Propranolol 10mg tab ORAL SCH ×2 (06:00→14:02)
--- NOTE | 2018-09-25 06:07 | Diagnostic Imaging Report ---
EXAM: XR Abdomen, 2 Views CLINICAL HISTORY: NGT TECHNIQUE: Frontal view of the abdomen/pelvis with upright view of the abdomen. COMPARISON: earlier same day abdomen xray FINDINGS: Lower thorax: Included chest shows similar tortuosity of the thoracic aorta and normal heart size without parenchymal consolidation although lung volumes remain low. Intraperitoneal space: Bowel gas pattern is notable for multiple gas- filled bowel loops in the left upper quadrant abdomen. No evidence of free air. Gastrointestinal tract: Unremarkable. No dilation. Bones/joints: Unremarkable. Tubes, lines and devices: Monitor leads have been repositioned to the patient's right flank, allowing better visualization of the nasogastric tube. The nasogastric tube terminates in the right upper quadrant abdomen and an position compatible with location in the second portion duodenum. IMPRESSION: Nasogastric tube tip terminates in the expected location of the second portion duodenum in apparent satisfactory position.
--- NOTE | 2018-09-25 07:25 | NUR ---
HAND-OFF: Report given to Aleksey Florentino RN.
--- NOTE | 2018-09-25 07:44 | NUR ---
NURSE NOTES: Received report from GWENDOLYN Reid. Pt is sleeping in bed. Pt resting comfortably at this time. Bed is in lowest position, side rails up X2, and call light is within reach. Will continue to monitor.
[2018-09-25 07:45] LABS: BASOPHILS % (AUTO) 2.2 % (0.0-2.0); EOSINOPHILS % (AUTO) 2.6 % (0.0-3.0); HEMATOCRIT 33.3 % (42.0-52.0); HEMOGLOBIN 10.2 G/DL (14.2-18.0); LYMPHOCYTES % (AUTO) 18.1 % (20.0-45.0); MEAN CORPUSCULAR VOLUME 80 FL (80-99); MONOCYTES % (AUTO) 15.1 % (1.0-10.0); NEUTROPHILS % (AUTO) 61.9 % (45.0-75.0); PLATELET COUNT 152 K/UL (150-450); RED BLOOD COUNT 4.15 M/UL (4.70-6.10); RED CELL DISTRIBUTION WIDTH 23.8 % (11.6-14.8); WHITE BLOOD COUNT 7.2 K/UL (4.8-10.8)
[2018-09-25 08:00] VITALS: BP 121/71
[2018-09-25 08:18] LABS: ALANINE AMINOTRANSFERASE 72 U/L (12-78); ALBUMIN 3.1 G/DL (3.4-5.0); ALBUMIN/GLOBULIN RATIO 0.7 (1.0-2.7); ALKALINE PHOSPHATASE 62 U/L (46-116); ANION GAP 9 mmol/L (5-15); ASPARTATE AMINO TRANSFERASE 100 U/L (15-37); BILIRUBIN,DIRECT 0.6 MG/DL (0.0-0.3); BILIRUBIN,TOTAL 1.6 MG/DL (0.2-1.0); BLOOD UREA NITROGEN 2 mg/dL (7-18); CALCIUM 8.9 MG/DL (8.5-10.1); CARBON DIOXIDE 25 MMOL/L (21-32); CHLORIDE 103 MMOL/L (98-107); CREATININE 0.8 MG/DL (0.55-1.30); SODIUM 137 MMOL/L (136-145)
--- NOTE | 2018-09-25 09:06 | General Progress Note ---
Assessment/Plan Problem List: (1) Pancreatitis ICD Codes: K85.90 - Acute pancreatitis without necrosis or infection, unspecified SNOMED: 04241447 Qualifiers: Qualified Codes: K85.20 - Alcohol induced acute pancreatitis without necrosis or infection (2) Thrombocytopenia ICD Codes: D69.6 - Thrombocytopenia, unspecified SNOMED: 305659306 (3) Hyponatremia ICD Codes: E87.1 - Hypo-osmolality and hyponatremia SNOMED: 41143465 (4) Alcohol withdrawal seizure ICD Codes: F10.239 - Alcohol dependence with withdrawal, unspecified; R56.9 - Unspecified convulsions SNOMED: 353764823 Qualifiers: Qualified Codes: F10.239 - Alcohol dependence with withdrawal, unspecified; R56.9 - Unspecified convulsions (5) Alcohol withdrawal ICD Codes: F10.239 - Alcohol dependence with withdrawal, unspecified SNOMED: 639882087 Qualifiers: Qualified Codes: F10.239 - Alcohol dependence with withdrawal, unspecified (6) Anemia ICD Codes: D64.9 - Anemia, unspecified SNOMED: 499269694 (7) Alcoholic hepatitis ICD Codes: K70.10 - Alcoholic hepatitis without ascites SNOMED: 747947218 (8) Alcoholic pancreatitis ICD Codes: K85.20 - Alcohol induced acute pancreatitis without necrosis or infection SNOMED: 736980526 (9) Alcohol dependence ICD Codes: F10.20 - Alcohol dependence, uncomplicated SNOMED: 51013542 Status: stable, unchanged Assessment/Plan: etoh abuse ams somewhat better elevated lft is improving etoh pancreatitis improving no sz Subjective ROS Limited/Unobtainable: Yes Allergies: Coded Allergies: No Known Allergies (Unverified , 09/21/18) Objective Last 24 Hour Vital Signs Date Time Temp Pulse Resp B/P (MAP) Pulse Ox O2 Delivery O2 Flow Rate FiO2 09/25/18 06:00 75 121/74 09/25/18 04:00 97.8 75 20 121/74 (90) 97 09/25/18 03:53 67 09/25/18 01:17 70 09/25/18 00:00 96.4 66 18 129/74 (92) 97 09/24/18 22:00 71 102/63 09/24/18 21:00 Room Air 09/24/18 20:30 71 09/24/18 20:00 97.5 71 20 102/63 (76) 99 09/24/18 16:18 98.1 67 18 113/65 (81) 100 09/24/18 16:00 66 09/24/18 12:42 72 125/80 09/24/18 12:00 70 09/24/18 12:00 98.1 72 18 125/80 (95) 97 09/24/18 09:42 Room Air 09/24/18 09:14 97.8 64 18 131/69 (89) 97 Intake and Output 09/24/18 09/25/18 18:59 06:59 Intake Total 1800 ml 1000 ml Balance 1800 ml 1000 ml Intake IV Total 1200 ml 1000 ml Other 600 ml # Voids 3 # Bowel Movements 4 Laboratory Tests 09/25/18 06:21: White Blood Count 7.2, Red Blood Count 4.15L, Hemoglobin 10.2L, Hematocrit 33.3L , Mean Corpuscular Volume 80, Mean Corpuscular Hemoglobin 24.4L, Mean Corpuscular Hemoglobin Concent 30.5L, Red Cell Distribution Width 23.8H, Platelet Count 152, Mean Platelet Volume 10.7H, Neutrophils (%) (Auto) 61.9, Lymphocytes (%) (Auto) 18.1L, Monocytes (%) (Auto) 15.1H, Eosinophils (%) (Auto ) 2.6, Basophils (%) (Auto) 2.2H, Sodium Level 137, Potassium Level 4.0, Chloride Level 103, Carbon Dioxide Level 25, Anion Gap 9, Blood Urea Nitrogen 2L , Creatinine 0.8, Estimat Glomerular Filtration Rate > 60, Glucose Level 112H, Uric Acid 1.6L, Calcium Level 8.9, Phosphorus Level 4.0, Magnesium Level 2.0, Total Bilirubin 1.6H, Direct Bilirubin 0.6H, Aspartate Amino Transf (AST/SGOT) 100H, Alanine Aminotransferase (ALT/SGPT) 72, Alkaline Phosphatase 62, Ammonia 29, C-Reactive Protein, Quantitative 3.8H, Pro-B-Type Natriuretic Peptide 302H, Total Protein 7.3, Albumin 3.1L, Globulin 4.2, Albumin/Globulin Ratio 0.7L, Levetiracetam (Keppra) Level [Pending] Height (Feet): 5 Height (Inches): 7.00 Weight (Pounds): 150 General Appearance: confused Respiratory/Chest: lungs clear Abdomen: soft Nitesh Melvin MD September 25, 2018 09:06
--- NOTE | 2018-09-25 09:17 | General Progress Note ---
Assessment/Plan Problem List: (1) AMS (2) Dysphagia ICD Codes: R13.10 - Dysphagia, unspecified SNOMED: 95355164, 135662118 (3) Alcoholic hepatitis ICD Codes: K70.10 - Alcoholic hepatitis without ascites SNOMED: 581756885 (4) Anemia ICD Codes: D64.9 - Anemia, unspecified SNOMED: 070141762 (5) Alcohol withdrawal ICD Codes: F10.239 - Alcohol dependence with withdrawal, unspecified SNOMED: 886233544 Qualifiers: Qualified Codes: F10.239 - Alcohol dependence with withdrawal, unspecified (6) Thrombocytopenia ICD Codes: D69.6 - Thrombocytopenia, unspecified SNOMED: 147512466 (7) Pancreatitis ICD Codes: K85.90 - Acute pancreatitis without necrosis or infection, unspecified SNOMED: 53982600 Qualifiers: Qualified Codes: K85.20 - Alcohol induced acute pancreatitis without necrosis or infection Status: stable, unchanged Assessment/Plan: Discriminant function calculated, no need for glucocorticoid therapy. Folate anemia work up OB stool r/o GI bleed monitor H&H, prn transfusions bowel regime ppi fu labs avoid alcohol trend LFTs start NGTF Subjective ROS Limited/Unobtainable: No Allergies: Coded Allergies: No Known Allergies (Unverified , 09/21/18) Objective Last 24 Hour Vital Signs Date Time Temp Pulse Resp B/P (MAP) Pulse Ox O2 Delivery O2 Flow Rate FiO2 09/25/18 08:00 98.9 75 18 121/71 (88) 98 09/25/18 06:00 75 121/74 09/25/18 04:00 97.8 75 20 121/74 (90) 97 09/25/18 03:53 67 09/25/18 01:17 70 09/25/18 00:00 96.4 66 18 129/74 (92) 97 09/24/18 22:00 71 102/63 09/24/18 21:00 Room Air 09/24/18 20:30 71 09/24/18 20:00 97.5 71 20 102/63 (76) 99 09/24/18 16:18 98.1 67 18 113/65 (81) 100 09/24/18 16:00 66 09/24/18 12:42 72 125/80 09/24/18 12:00 70 09/24/18 12:00 98.1 72 18 125/80 (95) 97 09/24/18 09:42 Room Air Intake and Output 09/24/18 09/25/18 19:00 07:00 Intake Total 1800 ml 900 ml Balance 1800 ml 900 ml Intake IV Total 1200 ml 900 ml Other 600 ml # Voids 3 # Bowel Movements 4 Laboratory Tests 09/25/18 06:21: White Blood Count 7.2, Red Blood Count 4.15L, Hemoglobin 10.2L, Hematocrit 33.3L , Mean Corpuscular Volume 80, Mean Corpuscular Hemoglobin 24.4L, Mean Corpuscular Hemoglobin Concent 30.5L, Red Cell Distribution Width 23.8H, Platelet Count 152, Mean Platelet Volume 10.7H, Neutrophils (%) (Auto) 61.9, Lymphocytes (%) (Auto) 18.1L, Monocytes (%) (Auto) 15.1H, Eosinophils (%) (Auto ) 2.6, Basophils (%) (Auto) 2.2H, Sodium Level 137, Potassium Level 4.0, Chloride Level 103, Carbon Dioxide Level 25, Anion Gap 9, Blood Urea Nitrogen 2L , Creatinine 0.8, Estimat Glomerular Filtration Rate > 60, Glucose Level 112H, Uric Acid 1.6L, Calcium Level 8.9, Phosphorus Level 4.0, Magnesium Level 2.0, Total Bilirubin 1.6H, Direct Bilirubin 0.6H, Aspartate Amino Transf (AST/SGOT) 100H, Alanine Aminotransferase (ALT/SGPT) 72, Alkaline Phosphatase 62, Ammonia 29, C-Reactive Protein, Quantitative 3.8H, Pro-B-Type Natriuretic Peptide 302H, Total Protein 7.3, Albumin 3.1L, Globulin 4.2, Albumin/Globulin Ratio 0.7L, Levetiracetam (Keppra) Level [Pending] Height (Feet): 5 Height (Inches): 7.00 Weight (Pounds): 150 General Appearance: lethargic EENT: normal ENT inspection Neck: supple Cardiovascular: normal rate Respiratory/Chest: decreased breath sounds Abdomen: normal bowel sounds, non tender, soft Extremities: non-tender Daniel Wright MD September 25, 2018 09:17
[2018-09-25] MEDS: Thiamine 100mg tab ORAL SCH (10:38)
[2018-09-25] MEDS: chlordiazePOXIDE 25mg Cap ORAL SCH ×3 (10:38→17:25)
[2018-09-25 12:00] VITALS: BP 118/67
[2018-09-25 16:10] VITALS: BP 117/66
[2018-09-25] MEDS ORDERED: Tubing IV Secondary IV ONE (16:21)
[2018-09-25] MEDS ORDERED: NS 275ml ONE (16:21)
[2018-09-25] MEDS ORDERED: D5W 275ml ONE (16:21)
--- NOTE | 2018-09-25 16:40 | Nephrology Progress Note ---
Assessment/Plan Problem List: (1) Hyponatremia (2) Pancreatitis (3) Alcohol withdrawal seizure (4) Anemia Assessment HypoNatremia Alcoholic liver disease and pancreatitis ETOH Withdraw Sz Lipase lowering Plan NGT feeding hydrate librium thiamin monitor lytes and lipase Keppra Folate gastric support Subjective ROS Limited/Unobtainable: No Objective Objective Last 24 Hour Vital Signs Date Time Temp Pulse Resp B/P (MAP) Pulse Ox O2 Delivery O2 Flow Rate FiO2 09/25/18 16:10 98.4 75 18 117/66 (83) 94 09/25/18 14:02 89 118/67 09/25/18 12:00 69 09/25/18 12:00 96.5 77 18 118/67 (84) 97 09/25/18 09:00 Room Air 09/25/18 08:00 105 09/25/18 08:00 98.9 75 18 121/71 (88) 98 09/25/18 06:00 75 121/74 09/25/18 04:00 97.8 75 20 121/74 (90) 97 09/25/18 03:53 67 09/25/18 01:17 70 09/25/18 00:00 96.4 66 18 129/74 (92) 97 09/24/18 22:00 71 102/63 09/24/18 21:00 Room Air 09/24/18 20:30 71 09/24/18 20:00 97.5 71 20 102/63 (76) 99 Intake and Output 09/24/18 09/25/18 19:00 07:00 Intake Total 1800 ml 900 ml Balance 1800 ml 900 ml IV Total 1200 ml 900 ml Other 600 ml # Voids 3 # Bowel Movements 4 Laboratory Tests 09/25/18 06:21: White Blood Count 7.2, Red Blood Count 4.15L, Hemoglobin 10.2L, Hematocrit 33.3L , Mean Corpuscular Volume 80, Mean Corpuscular Hemoglobin 24.4L, Mean Corpuscular Hemoglobin Concent 30.5L, Red Cell Distribution Width 23.8H, Platelet Count 152, Mean Platelet Volume 10.7H, Neutrophils (%) (Auto) 61.9, Lymphocytes (%) (Auto) 18.1L, Monocytes (%) (Auto) 15.1H, Eosinophils (%) (Auto ) 2.6, Basophils (%) (Auto) 2.2H, Sodium Level 137, Potassium Level 4.0, Chloride Level 103, Carbon Dioxide Level 25, Anion Gap 9, Blood Urea Nitrogen 2L , Creatinine 0.8, Estimat Glomerular Filtration Rate > 60, Glucose Level 112H, Uric Acid 1.6L, Calcium Level 8.9, Phosphorus Level 4.0, Magnesium Level 2.0, Total Bilirubin 1.6H, Direct Bilirubin 0.6H, Aspartate Amino Transf (AST/SGOT) 100H, Alanine Aminotransferase (ALT/SGPT) 72, Alkaline Phosphatase 62, Ammonia 29, C-Reactive Protein, Quantitative 3.8H, Pro-B-Type Natriuretic Peptide 302H, Total Protein 7.3, Albumin 3.1L, Globulin 4.2, Albumin/Globulin Ratio 0.7L, Levetiracetam (Keppra) Level [Pending] Height (Feet): 5 Height (Inches): 7.00 Weight (Pounds): 150 General Appearance: no apparent distress Objective no change Mode Krishnan MD September 25, 2018 16:40
[2018-09-25 20:00] VITALS: BP 134/70
--- NOTE | 2018-09-25 20:07 | NUR ---
HAND-OFF: Report given to Tito Negrete. Plan of care endorsed.
--- NOTE | 2018-09-25 20:08 | NUR ---
NURSE NOTES: Received pt from GWENDOLYN Hernandez. Pt is awake and resting in bed. IV site intact. Will continue with plan of care.
[2018-09-25] MEDS: Iron Sucrose 100 MG in NS 55 ML IV SCH (21:00)
[2018-09-26] VITALS: BP 109/64
[2018-09-26] MEDS: Propranolol 10mg tab NG SCH ×3 (00:05→14:00)
[2018-09-26] MEDS: Depakote 125mg Sprinkles GT SCH ×4 (01:33→19:02)
[2018-09-26 04:00] VITALS: BP 109/70
[2018-09-26] MEDS ORDERED: Propranolol 10mg tab NG SCH (06:00)
--- NOTE | 2018-09-26 06:00 | NUR ---
NURSE NOTES: Pt removed his ng-tube. Unable to give med via ng tube.
--- NOTE | 2018-09-26 07:20 | NUR ---
HAND-OFF: Report given to GWENDOLYN Gallo. Endorsed plan of care.
[2018-09-26 07:43] LABS: BASOPHILS % (AUTO) 1.1 % (0.0-2.0); EOSINOPHILS % (AUTO) 2.7 % (0.0-3.0); HEMATOCRIT 31.3 % (42.0-52.0); HEMOGLOBIN 9.6 G/DL (14.2-18.0); LYMPHOCYTES % (AUTO) 18.5 % (20.0-45.0); MEAN CORPUSCULAR VOLUME 79 FL (80-99); MONOCYTES % (AUTO) 14.4 % (1.0-10.0); NEUTROPHILS % (AUTO) 63.3 % (45.0-75.0); PLATELET COUNT 187 K/UL (150-450); RED BLOOD COUNT 3.94 M/UL (4.70-6.10); RED CELL DISTRIBUTION WIDTH 23.5 % (11.6-14.8); WHITE BLOOD COUNT 6.4 K/UL (4.8-10.8)
[2018-09-26 07:48] LABS: PHOSPHORUS 3.4 MG/DL (2.5-4.9)
--- NOTE | 2018-09-26 07:50 | NUR ---
NURSE NOTES: Received report from Caden SNOW. Pt asleep in bed and responsive to pain stimuli. 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 condom cath intact and patent.Pt reported agitated and confused at all night. Bilateral soft wrist restrain on. He is able move his upper body and lower body well. IV is at LAC 18G running with D5 NS w/ KCL 40mEq @100cc/hr. Lithuanian speaking. Bed alarm is on, bed in the lowest and breaks are engaged. Call light and side table. Ativan 2mg was given. Will follow plans of care.
[2018-09-26 08:00] VITALS: BP 117/71
[2018-09-26 08:05] LABS: AMMONIA 99 umol/L (11-32)
[2018-09-26 08:06] LABS: ALANINE AMINOTRANSFERASE 66 U/L (12-78); ALBUMIN 2.7 G/DL (3.4-5.0); ALBUMIN/GLOBULIN RATIO 0.7 (1.0-2.7); ALKALINE PHOSPHATASE 56 U/L (46-116); ANION GAP 9 mmol/L (5-15); ASPARTATE AMINO TRANSFERASE 88 U/L (15-37); BILIRUBIN,TOTAL 1.2 MG/DL (0.2-1.0); BLOOD UREA NITROGEN 1 mg/dL (7-18); CALCIUM 8.6 MG/DL (8.5-10.1); CARBON DIOXIDE 24 MMOL/L (21-32); CHLORIDE 103 MMOL/L (98-107); CREATININE 0.7 MG/DL (0.55-1.30); POTASSIUM 3.7 MMOL/L (3.5-5.1); SODIUM 136 MMOL/L (136-145)
[2018-09-26 08:10] LABS: BILIRUBIN,DIRECT 0.4 MG/DL (0.0-0.3)
--- NOTE | 2018-09-26 09:30 | NUR ---
NURSE NOTES: Reinserted NG tube and awaiting for x-ray result
--- NOTE | 2018-09-26 09:30 | General Progress Note ---
Assessment/Plan Problem List: (1) AMS (2) Dysphagia ICD Codes: R13.10 - Dysphagia, unspecified SNOMED: 78733955, 443115343 (3) Alcoholic hepatitis ICD Codes: K70.10 - Alcoholic hepatitis without ascites SNOMED: 219966512 (4) Anemia ICD Codes: D64.9 - Anemia, unspecified SNOMED: 379686502 (5) Alcohol withdrawal ICD Codes: F10.239 - Alcohol dependence with withdrawal, unspecified SNOMED: 314372949 Qualifiers: Qualified Codes: F10.239 - Alcohol dependence with withdrawal, unspecified (6) Thrombocytopenia ICD Codes: D69.6 - Thrombocytopenia, unspecified SNOMED: 871920078 (7) Pancreatitis ICD Codes: K85.90 - Acute pancreatitis without necrosis or infection, unspecified SNOMED: 74523776 Qualifiers: Qualified Codes: K85.20 - Alcohol induced acute pancreatitis without necrosis or infection Status: stable, unchanged Assessment/Plan: Discriminant function calculated, no need for glucocorticoid therapy. Folate anemia work up OB stool r/o GI bleed monitor H&H, prn transfusions bowel regime ppi fu labs avoid alcohol trend LFTs NGTF add lactulose and xifaxan Subjective ROS Limited/Unobtainable: No Allergies: Coded Allergies: No Known Allergies (Unverified , 09/21/18) Objective Last 24 Hour Vital Signs Date Time Temp Pulse Resp B/P (MAP) Pulse Ox O2 Delivery O2 Flow Rate FiO2 09/26/18 08:00 97.8 66 18 117/71 (86) 97 09/26/18 04:00 66 09/26/18 04:00 97.6 66 18 109/70 (83) 100 09/26/18 00:05 66 109/64 09/26/18 00:00 64 09/26/18 00:00 97.7 64 109/64 (79) 09/26/18 00:00 97.7 63 18 109/64 (79) 97 09/25/18 21:00 Room Air 09/25/18 20:00 67 09/25/18 20:00 67 18 134/70 (91) 97 09/25/18 16:10 98.4 75 18 117/66 (83) 94 09/25/18 16:00 67 09/25/18 14:02 89 118/67 09/25/18 12:00 69 09/25/18 12:00 96.5 77 18 118/67 (84) 97 Intake and Output 09/25/18 09/26/18 19:00 07:00 Intake Total 120 ml Output Total 400 ml Balance 120 ml -400 ml Intake Oral 120 ml Output Urine Total 400 ml # Voids 4 2 # Bowel Movements 1 2 Laboratory Tests 09/26/18 06:05: White Blood Count 6.4, Red Blood Count 3.94L, Hemoglobin 9.6L, Hematocrit 31.3L , Mean Corpuscular Volume 79L, Mean Corpuscular Hemoglobin 24.3L, Mean Corpuscular Hemoglobin Concent 30.6L, Red Cell Distribution Width 23.5H, Platelet Count 187, Mean Platelet Volume 11.3H, Neutrophils (%) (Auto) 63.3, Lymphocytes (%) (Auto) 18.5L, Monocytes (%) (Auto) 14.4H, Eosinophils (%) (Auto ) 2.7, Basophils (%) (Auto) 1.1, Sodium Level 136, Potassium Level 3.7, Chloride Level 103, Carbon Dioxide Level 24, Anion Gap 9, Blood Urea Nitrogen 1L , Creatinine 0.7, Estimat Glomerular Filtration Rate > 60, Glucose Level 109H, Calcium Level 8.6, Phosphorus Level 3.4, Magnesium Level 1.7L, Total Bilirubin 1.2H, Direct Bilirubin 0.4H, Aspartate Amino Transf (AST/SGOT) 88H, Alanine Aminotransferase (ALT/SGPT) 66, Alkaline Phosphatase 56, Ammonia 99H, Total Protein 6.7, Albumin 2.7L, Globulin 4.0, Albumin/Globulin Ratio 0.7L Height (Feet): 5 Height (Inches): 7.00 Weight (Pounds): 150 General Appearance: lethargic EENT: normal ENT inspection Neck: supple Cardiovascular: normal rate Respiratory/Chest: accessory muscle use Abdomen: normal bowel sounds, non tender, soft Extremities: non-tender Daniel Wright MD September 26, 2018 09:30
[2018-09-26] MEDS: Thiamine 100mg tab ORAL SCH (09:55)
[2018-09-26] MEDS: chlordiazePOXIDE 25mg Cap ORAL SCH ×4 (09:56→19:02)
--- NOTE | 2018-09-26 10:40 | NUR ---
NURSE NOTES: Confirmed x-ray result by Paras from radiology dept. Meds and Feeding resumed.
--- NOTE | 2018-09-26 11:13 | Infectious Diseases Prog Note ---
Assessment/Plan Assessment/Plan IMPRESSION: Acute pancreatitis, likely alcoholic anemia thrombocytopenia leukocytosis resolved alcohol withdrawal, hyponatremia Fatty liver R kidney angiomyolipoma. RECOMMENDATION: Observe off antibiotic Subjective ROS Limited/Unobtainable: Yes Neurologic: Reports: confusion, other - on restraint Allergies: Coded Allergies: No Known Allergies (Unverified , 09/21/18) Objective Vital Signs Last 24 Hour Vital Signs Date Time Temp Pulse Resp B/P (MAP) Pulse Ox O2 Delivery O2 Flow Rate FiO2 09/26/18 08:00 97.8 66 18 117/71 (86) 97 09/26/18 08:00 64 09/26/18 04:00 66 09/26/18 04:00 97.6 66 18 109/70 (83) 100 09/26/18 00:05 66 109/64 09/26/18 00:00 64 09/26/18 00:00 97.7 64 109/64 (79) 09/26/18 00:00 97.7 63 18 109/64 (79) 97 09/25/18 21:00 Room Air 09/25/18 20:00 67 09/25/18 20:00 67 18 134/70 (91) 97 09/25/18 16:10 98.4 75 18 117/66 (83) 94 09/25/18 16:00 67 09/25/18 14:02 89 118/67 09/25/18 12:00 69 09/25/18 12:00 96.5 77 18 118/67 (84) 97 Height (Feet): 5 Height (Inches): 7.00 Weight (Pounds): 150 General Appearance: no acute distress HEENT: mucous membranes moist Respiratory/Chest: lungs clear Cardiovascular: normal rate Abdomen: soft, non tender Extremities: no edema Neurologic/Psychiatric: disoriented Laboratory Tests Test 09/26/18 06:05 White Blood Count 6.4 K/UL (4.8-10.8) Red Blood Count 3.94 M/UL (4.70-6.10) L Hemoglobin 9.6 G/DL (14.2-18.0) L Hematocrit 31.3 % (42.0-52.0) L Mean Corpuscular Volume 79 FL (80-99) L Mean Corpuscular Hemoglobin 24.3 PG (27.0-31.0) L Mean Corpuscular Hemoglobin Concent 30.6 G/DL (32.0-36.0) L Red Cell Distribution Width 23.5 % (11.6-14.8) H Platelet Count 187 K/UL (150-450) Mean Platelet Volume 11.3 FL (6.5-10.1) H Neutrophils (%) (Auto) 63.3 % (45.0-75.0) Lymphocytes (%) (Auto) 18.5 % (20.0-45.0) L Monocytes (%) (Auto) 14.4 % (1.0-10.0) H Eosinophils (%) (Auto) 2.7 % (0.0-3.0) Basophils (%) (Auto) 1.1 % (0.0-2.0) Sodium Level 136 MMOL/L (136-145) Potassium Level 3.7 MMOL/L (3.5-5.1) Chloride Level 103 MMOL/L (98-107) Carbon Dioxide Level 24 MMOL/L (21-32) Anion Gap 9 mmol/L (5-15) Blood Urea Nitrogen 1 mg/dL (7-18) L Creatinine 0.7 MG/DL (0.55-1.30) Estimat Glomerular Filtration Rate > 60 mL/min (>60) Glucose Level 109 MG/DL (74-106) H Calcium Level 8.6 MG/DL (8.5-10.1) Phosphorus Level 3.4 MG/DL (2.5-4.9) Magnesium Level 1.7 MG/DL (1.8-2.4) L Total Bilirubin 1.2 MG/DL (0.2-1.0) H Direct Bilirubin 0.4 MG/DL (0.0-0.3) H Aspartate Amino Transf (AST/SGOT) 88 U/L (15-37) H Alanine Aminotransferase (ALT/SGPT) 66 U/L (12-78) Alkaline Phosphatase 56 U/L (46-116) Ammonia 99 umol/L (11-32) H Total Protein 6.7 G/DL (6.4-8.2) Albumin 2.7 G/DL (3.4-5.0) L Globulin 4.0 g/dL Albumin/Globulin Ratio 0.7 (1.0-2.7) L Current Medications Medications (Trade) Dose Ordered Sig/Socrates Route PRN Reason Start Time Stop Time Status Last Admin Dose Admin Chlordiazepoxide (Librium) 50 mg TID ORAL 09/22/18 18:00 09/29/18 17:59 09/26/18 09:56 Dextrose/ Electrolytes 1,000 ml @ 100 mls/hr Q10H IV 09/21/18 18:30 10/21/18 18:29 09/25/18 02:05 Divalproex Sodium (Depakote Sprinkles) 250 mg BID GT 09/26/18 00:30 10/26/18 00:29 09/26/18 09:55 Folic Acid (Folate) 2 mg DAILY ORAL 09/22/18 09:00 10/22/18 08:59 09/26/18 09:55 Iron Sucrose 100 mg/Sodium Chloride 60 ml @ 240 mls/hr BEDTIME IV 09/23/18 21:00 09/27/18 21:14 09/25/18 21:00 Lactulose (Cephulac) 20 gm THREE TIMES A DAY ORAL 09/26/18 13:00 10/26/18 12:59 Levetiracetam (Keppra) 500 mg Q12HR NG 09/25/18 23:15 10/24/18 20:59 09/26/18 09:55 Lorazepam (Ativan 2mg/ml 1ml) 2 mg EVERY 4 HOURS PRN IV for agitation 09/24/18 23:45 10/01/18 23:44 09/25/18 22:44 Ondansetron HCl (Zofran) 4 mg Q6H PRN IVP Nausea & Vomiting 09/21/18 20:30 10/21/18 20:29 Pantoprazole (Protonix) 40 mg EVERY 12 HOURS ORAL 09/24/18 21:00 10/24/18 20:59 09/26/18 09:55 Potassium Chloride (K-Dur) 40 meq DAILY ORAL 09/23/18 09:00 10/23/18 08:59 09/26/18 09:55 Propranolol HCl (Inderal) 10 mg Q8HR NG 09/25/18 23:15 10/22/18 13:59 09/26/18 00:05 Rifaximin (Xifaxan) 550 mg EVERY 12 HOURS ORAL 09/26/18 21:00 10/03/18 20:59 Thiamine HCl (Vitamin B1) 100 mg DAILY ORAL 09/25/18 09:00 10/25/18 08:59 09/26/18 09:55 Tyrell Yee MD September 26, 2018 11:13
[2018-09-26 12:00] VITALS: BP 107/71
[2018-09-26] MEDS: D5NS w/KCl 40mEq 1000ml 1,000 ML IV SCH ×2 (12:33→15:53)
--- NOTE | 2018-09-26 13:10 | NUR ---
NURSE NOTES: Pt pulled out the NG tube and condor cath. Will reinsert it.
[2018-09-26] MEDS: Lactulose 20gm/30ml UDC ORAL SCH ×3 (14:01→19:02)
--- NOTE | 2018-09-26 15:00 | NUR ---
NURSE NOTES: Reinserted NG tube and reapplied condom cath. awaiting for x-ray results
--- NOTE | 2018-09-26 15:35 | General Progress Note ---
Assessment/Plan Status: stable, unchanged Assessment/Plan: Assessment and Recs: # Pancytopenia -- multiple etiologies could be related to underlying liver disease, in this case is very likely related to etoh ABUse and myelosuppression of the bone marrow, very common to alcoholics --> peripheral smear has been ordered and does not show significant abnormalities --> Medications have been reviewed --> Continue to monitor for improvement, trend cbc --> Hep panel and HIV have been reviewed and are negative --> US abd has been reviewed, fatty infiltration is noted --> consider other causes, infections that could contribute --> Reverse isolation if ANC is <2000 --> Give neupogen if ANC <1000 --> Transfuse if hgb <7, with 1 unit prbc # Anemia of iron deficiency, ferritin is <50 --> As per gi eval as needed --> No evidence of hemolysis is noted, peripheral smear has been reviewed. --> Hgb goal >7. Transfuse prn. --> Medications have been reviewed --> iv iron x 5 days started # Alcohol withdrawal --> Monitor for alcohol withdrawal seizure --> currently w/o seizures # Impending delirium tremens --> recommend cessation etoh # Hyponatremia # Pancreatitis # HYperbilirubinemia as per above The timing of this note does not necessarily reflect the time of the patient was seen. Greatly appreciate consultation! Subjective Constitutional: Denies: no symptoms, chills, diaphoresis, fever, malaise, weakness, other HEENT: Denies: no symptoms, eye pain, blurred vision, tearing, double vision, ear pain, ear discharge, nose pain, nose congestion, throat pain, throat swelling, mouth pain, mouth swelling, other Cardiovascular: Denies: no symptoms, chest pain, edema, irregular heart rate, lightheadedness, palpitations, syncope, other Respiratory: Denies: no symptoms, cough, orthopnea, shortness of breath, SOB with excertion, SOB at rest, sputum, stridor, wheezing, other Gastrointestinal/Abdominal: Denies: no symptoms, abdomen distended, abdominal pain, black stools, tarry stools, blood in stool, constipated, diarrhea, difficulty swallowing, nausea, poor appetite, poor fluid intake, rectal bleeding , vomiting, other Allergies: Coded Allergies: No Known Allergies (Unverified , 09/21/18) Subjective 09/23: no events noted, less altered, cbc reviewed 09/24: labs reviewed, no events, no f/c 09/26: off abx, agitated and ng was pulled out Objective Last 24 Hour Vital Signs Date Time Temp Pulse Resp B/P (MAP) Pulse Ox O2 Delivery O2 Flow Rate FiO2 09/26/18 14:00 64 107/71 09/26/18 12:00 97.9 75 20 107/71 (83) 97 09/26/18 09:00 Room Air 09/26/18 08:00 97.8 66 18 117/71 (86) 97 09/26/18 08:00 64 09/26/18 04:00 66 09/26/18 04:00 97.6 66 18 109/70 (83) 100 09/26/18 00:05 66 109/64 09/26/18 00:00 64 09/26/18 00:00 97.7 64 109/64 (79) 09/26/18 00:00 97.7 63 18 109/64 (79) 97 09/25/18 21:00 Room Air 09/25/18 20:00 67 09/25/18 20:00 67 18 134/70 (91) 97 09/25/18 16:10 98.4 75 18 117/66 (83) 94 09/25/18 16:00 67 Intake and Output 09/25/18 09/26/18 19:00 07:00 Intake Total 120 ml Output Total 400 ml Balance 120 ml -400 ml Intake Oral 120 ml Output Urine Total 400 ml # Voids 4 2 # Bowel Movements 1 2 Laboratory Tests 09/26/18 06:05: White Blood Count 6.4, Red Blood Count 3.94L, Hemoglobin 9.6L, Hematocrit 31.3L , Mean Corpuscular Volume 79L, Mean Corpuscular Hemoglobin 24.3L, Mean Corpuscular Hemoglobin Concent 30.6L, Red Cell Distribution Width 23.5H, Platelet Count 187, Mean Platelet Volume 11.3H, Neutrophils (%) (Auto) 63.3, Lymphocytes (%) (Auto) 18.5L, Monocytes (%) (Auto) 14.4H, Eosinophils (%) (Auto ) 2.7, Basophils (%) (Auto) 1.1, Sodium Level 136, Potassium Level 3.7, Chloride Level 103, Carbon Dioxide Level 24, Anion Gap 9, Blood Urea Nitrogen 1L , Creatinine 0.7, Estimat Glomerular Filtration Rate > 60, Glucose Level 109H, Calcium Level 8.6, Phosphorus Level 3.4, Magnesium Level 1.7L, Total Bilirubin 1.2H, Direct Bilirubin 0.4H, Aspartate Amino Transf (AST/SGOT) 88H, Alanine Aminotransferase (ALT/SGPT) 66, Alkaline Phosphatase 56, Ammonia 99H, Total Protein 6.7, Albumin 2.7L, Globulin 4.0, Albumin/Globulin Ratio 0.7L Height (Feet): 5 Height (Inches): 7.00 Weight (Pounds): 150 Objective Sp02 EP: reviewed, normal General Appearance: well appearing, no apparent distress, GCS 15 Head: normocephalic Eyes: bilateral eye normal inspection, bilateral eye PERRL, bilateral eye EOMI ENT: moist mucus membranes Neck: supple Respiratory: lungs clear, normal breath sounds Cardiovascular: regular rate, rhythm, 2+ radial (R) Gastrointestinal: normal inspection, normal bowel sounds, non tender, no mass, non-distended Musculoskeletal: back normal, gait/station normal, normal range of motion Neurologic: alert, oriented x3, 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
--- NOTE | 2018-09-26 15:54 | Nephrology Progress Note ---
Assessment/Plan Problem List: (1) Hyponatremia (2) Pancreatitis (3) Alcohol withdrawal seizure (4) Anemia Assessment HypoNatremia Alcoholic liver disease and pancreatitis ETOH Withdraw Sz Lipase lowering Plan NGT feeding down on hydrate DC Inderal librium thiamin monitor lytes and lipase Keppra Folate gastric support Subjective ROS Limited/Unobtainable: No Constitutional: Reports: malaise Objective Objective Last 24 Hour Vital Signs Date Time Temp Pulse Resp B/P (MAP) Pulse Ox O2 Delivery O2 Flow Rate FiO2 09/26/18 14:00 64 107/71 09/26/18 12:00 97.9 75 20 107/71 (83) 97 09/26/18 09:00 Room Air 09/26/18 08:00 97.8 66 18 117/71 (86) 97 09/26/18 08:00 64 09/26/18 04:00 66 09/26/18 04:00 97.6 66 18 109/70 (83) 100 09/26/18 00:05 66 109/64 09/26/18 00:00 64 09/26/18 00:00 97.7 64 109/64 (79) 09/26/18 00:00 97.7 63 18 109/64 (79) 97 09/25/18 21:00 Room Air 09/25/18 20:00 67 09/25/18 20:00 67 18 134/70 (91) 97 09/25/18 16:10 98.4 75 18 117/66 (83) 94 09/25/18 16:00 67 Intake and Output 09/25/18 09/26/18 19:00 07:00 Intake Total 120 ml Output Total 400 ml Balance 120 ml -400 ml Intake Oral 120 ml Output Urine Total 400 ml # Voids 4 2 # Bowel Movements 1 2 Laboratory Tests 09/26/18 06:05: White Blood Count 6.4, Red Blood Count 3.94L, Hemoglobin 9.6L, Hematocrit 31.3L , Mean Corpuscular Volume 79L, Mean Corpuscular Hemoglobin 24.3L, Mean Corpuscular Hemoglobin Concent 30.6L, Red Cell Distribution Width 23.5H, Platelet Count 187, Mean Platelet Volume 11.3H, Neutrophils (%) (Auto) 63.3, Lymphocytes (%) (Auto) 18.5L, Monocytes (%) (Auto) 14.4H, Eosinophils (%) (Auto ) 2.7, Basophils (%) (Auto) 1.1, Sodium Level 136, Potassium Level 3.7, Chloride Level 103, Carbon Dioxide Level 24, Anion Gap 9, Blood Urea Nitrogen 1L , Creatinine 0.7, Estimat Glomerular Filtration Rate > 60, Glucose Level 109H, Calcium Level 8.6, Phosphorus Level 3.4, Magnesium Level 1.7L, Total Bilirubin 1.2H, Direct Bilirubin 0.4H, Aspartate Amino Transf (AST/SGOT) 88H, Alanine Aminotransferase (ALT/SGPT) 66, Alkaline Phosphatase 56, Ammonia 99H, Total Protein 6.7, Albumin 2.7L, Globulin 4.0, Albumin/Globulin Ratio 0.7L Height (Feet): 5 Height (Inches): 7.00 Weight (Pounds): 150 General Appearance: no apparent distress Cardiovascular: normal rate, bradycardia Respiratory/Chest: decreased breath sounds Abdomen: distended Objective no change Mode Krishnan MD September 26, 2018 15:54
[2018-09-26 16:00] VITALS: BP 129/81
--- NOTE | 2018-09-26 18:00 | NUR ---
NURSE NOTES: Per radiology dept, there is no radiologist available to read the KUB result. Per daniel @radiology dept, he will call me as soon as he gets the result from the MD.
--- NOTE | 2018-09-26 18:38 | NUR ---
NURSE NOTES: Still awaiting for the kub result. All meds scheduled for 6pm held.
--- NOTE | 2018-09-26 19:03 | NUR ---
NURSE NOTES: KUB result relayed from radiology dept. Will resume feeding and meds
--- NOTE | 2018-09-26 19:48 | NUR ---
HAND-OFF: Report given to Caden SNOW. Pt remains stable
--- NOTE | 2018-09-26 19:49 | NUR ---
NURSE NOTES: Received pt from GWENDOLYN Overton. Pt is awake and resting in no acute distress. Tolerating room air. Soft wrist restraints are on and circulation assessed wnl. NG tube is running and intact. IV site is patent. Bed in lowest position and call light within reach. Will continue with plan of care.
[2018-09-26 20:00] VITALS: BP 114/64
--- NOTE | 2018-09-26 20:36 | General Progress Note ---
Assessment/Plan Problem List: (1) Pancreatitis ICD Codes: K85.90 - Acute pancreatitis without necrosis or infection, unspecified SNOMED: 11982259 Qualifiers: Qualified Codes: K85.20 - Alcohol induced acute pancreatitis without necrosis or infection (2) Thrombocytopenia ICD Codes: D69.6 - Thrombocytopenia, unspecified SNOMED: 689039372 (3) Hyponatremia ICD Codes: E87.1 - Hypo-osmolality and hyponatremia SNOMED: 28688071 (4) Alcohol withdrawal seizure ICD Codes: F10.239 - Alcohol dependence with withdrawal, unspecified; R56.9 - Unspecified convulsions SNOMED: 510530868 Qualifiers: Qualified Codes: F10.239 - Alcohol dependence with withdrawal, unspecified; R56.9 - Unspecified convulsions (5) Alcohol withdrawal ICD Codes: F10.239 - Alcohol dependence with withdrawal, unspecified SNOMED: 569010664 Qualifiers: Qualified Codes: F10.239 - Alcohol dependence with withdrawal, unspecified (6) Anemia ICD Codes: D64.9 - Anemia, unspecified SNOMED: 591822796 (7) Alcoholic hepatitis ICD Codes: K70.10 - Alcoholic hepatitis without ascites SNOMED: 648333018 (8) Alcoholic pancreatitis ICD Codes: K85.20 - Alcohol induced acute pancreatitis without necrosis or infection SNOMED: 237711452 (9) Alcohol dependence ICD Codes: F10.20 - Alcohol dependence, uncomplicated SNOMED: 09747189 Status: stable, unchanged Assessment/Plan: had ng tube diet route of nutrition per dr thao etoh abuse ams somewhat better elevated lft is improving etoh pancreatitis improving Subjective ROS Limited/Unobtainable: Yes Allergies: Coded Allergies: No Known Allergies (Unverified , 09/21/18) Objective Last 24 Hour Vital Signs Date Time Temp Pulse Resp B/P (MAP) Pulse Ox O2 Delivery O2 Flow Rate FiO2 09/26/18 16:00 97.6 71 20 129/81 (97) 97 09/26/18 16:00 68 09/26/18 14:00 64 107/71 09/26/18 12:00 97.9 75 20 107/71 (83) 97 09/26/18 12:00 69 09/26/18 09:00 Room Air 09/26/18 08:00 97.8 66 18 117/71 (86) 97 09/26/18 08:00 64 09/26/18 04:00 66 09/26/18 04:00 97.6 66 18 109/70 (83) 100 09/26/18 00:05 66 109/64 09/26/18 00:00 64 09/26/18 00:00 97.7 64 109/64 (79) 09/26/18 00:00 97.7 63 18 109/64 (79) 97 09/25/18 21:00 Room Air Intake and Output 09/25/18 09/26/18 19:00 07:00 Intake Total 120 ml 0 ml Output Total 400 ml Balance 120 ml -400 ml Intake Oral 120 ml 0 ml Output Urine Total 400 ml # Voids 4 2 # Bowel Movements 1 3 Laboratory Tests 09/26/18 06:05: White Blood Count 6.4, Red Blood Count 3.94L, Hemoglobin 9.6L, Hematocrit 31.3L , Mean Corpuscular Volume 79L, Mean Corpuscular Hemoglobin 24.3L, Mean Corpuscular Hemoglobin Concent 30.6L, Red Cell Distribution Width 23.5H, Platelet Count 187, Mean Platelet Volume 11.3H, Neutrophils (%) (Auto) 63.3, Lymphocytes (%) (Auto) 18.5L, Monocytes (%) (Auto) 14.4H, Eosinophils (%) (Auto ) 2.7, Basophils (%) (Auto) 1.1, Sodium Level 136, Potassium Level 3.7, Chloride Level 103, Carbon Dioxide Level 24, Anion Gap 9, Blood Urea Nitrogen 1L , Creatinine 0.7, Estimat Glomerular Filtration Rate > 60, Glucose Level 109H, Calcium Level 8.6, Phosphorus Level 3.4, Magnesium Level 1.7L, Total Bilirubin 1.2H, Direct Bilirubin 0.4H, Aspartate Amino Transf (AST/SGOT) 88H, Alanine Aminotransferase (ALT/SGPT) 66, Alkaline Phosphatase 56, Ammonia 99H, Total Protein 6.7, Albumin 2.7L, Globulin 4.0, Albumin/Globulin Ratio 0.7L Height (Feet): 5 Height (Inches): 7.00 Weight (Pounds): 150 Cardiovascular: normal rate Nitesh Melvin MD September 26, 2018 20:36
[2018-09-26] MEDS: Iron Sucrose 100 MG in NS 55 ML IV SCH (21:47)
--- NOTE | 2018-09-26 23:54 | Diagnostic Imaging Report ---
EXAM: XR Abdomen, 1 View CLINICAL HISTORY: TUBE PLCMT TECHNIQUE: Frontal supine view of the abdomen/pelvis. COMPARISON: No relevant prior studies available. FINDINGS: Gastrointestinal tract: Unremarkable. Bones/joints: No acute fracture. Tubes, lines and devices: Enteric tube in the stomach. IMPRESSION: Enteric tube in the stomach.
[2018-09-27] VITALS: BP_SYST 96; BP_SYST 99; BP_DIAS 62
[2018-09-27 04:00] VITALS: BP 102/64
[2018-09-27 06:25] LABS: BASOPHILS % (AUTO) 2.6 % (0.0-2.0); EOSINOPHILS % (AUTO) 3.3 % (0.0-3.0); HEMATOCRIT 31.9 % (42.0-52.0); HEMOGLOBIN 9.9 G/DL (14.2-18.0); LYMPHOCYTES % (AUTO) 17.4 % (20.0-45.0); MEAN CORPUSCULAR VOLUME 80 FL (80-99); MONOCYTES % (AUTO) 14.7 % (1.0-10.0); PLATELET COUNT 214 K/UL (150-450); RED CELL DISTRIBUTION WIDTH 24.2 % (11.6-14.8)
[2018-09-27 06:46] LABS: AMMONIA 71 umol/L (11-32)
[2018-09-27 06:53] LABS: ALANINE AMINOTRANSFERASE 57 U/L (12-78); ALBUMIN 2.7 G/DL (3.4-5.0); ALBUMIN/GLOBULIN RATIO 0.7 (1.0-2.7); ALKALINE PHOSPHATASE 52 U/L (46-116); ANION GAP 8 mmol/L (5-15); ASPARTATE AMINO TRANSFERASE 76 U/L (15-37); BLOOD UREA NITROGEN 1 mg/dL (7-18); CALCIUM 8.8 MG/DL (8.5-10.1); CARBON DIOXIDE 25 MMOL/L (21-32); CHLORIDE 108 MMOL/L (98-107); CREATININE 0.8 MG/DL (0.55-1.30); POTASSIUM 3.9 MMOL/L (3.5-5.1); SODIUM 141 MMOL/L (136-145)
--- NOTE | 2018-09-27 07:30 | NUR ---
HAND-OFF: Report given to Tito Brito. Endorsed plan of care.
[2018-09-27 08:00] VITALS: BP 104/62
--- NOTE | 2018-09-27 08:01 | NUR ---
NURSE NOTES: Patient is alert to name and place. Side rails are up x2, side rails padded. NGT is on right nare, tube feeding is running at 10 ml/hr. HOB is elevated. Will continue to monitor.
[2018-09-27] MEDS: Depakote 125mg Sprinkles GT SCH ×2 (09:22→18:02)
[2018-09-27] MEDS: Thiamine 100mg tab NG SCH (09:22)
[2018-09-27] MEDS: chlordiazePOXIDE 25mg Cap NG SCH ×2 (09:22→12:18)
[2018-09-27] MEDS: Lactulose 20gm/30ml UDC NG SCH ×3 (09:23→18:02)
[2018-09-27] MEDS ORDERED: NS 275ml ONE (09:48)
[2018-09-27] MEDS ORDERED: Tubing IV Secondary IV ONE (09:48)
--- NOTE | 2018-09-27 09:50 | GI Progress Note ---
Assessment/Plan Problems: (1) Alcoholic pancreatitis ICD Codes: K85.20 - Alcohol induced acute pancreatitis without necrosis or infection SNOMED: 572624851 (2) Alcoholic hepatitis ICD Codes: K70.10 - Alcoholic hepatitis without ascites SNOMED: 568719916 (3) Anemia ICD Codes: D64.9 - Anemia, unspecified SNOMED: 831414253 (4) Alcohol withdrawal ICD Codes: F10.239 - Alcohol dependence with withdrawal, unspecified SNOMED: 791521830 Qualifiers: Qualified Codes: F10.239 - Alcohol dependence with withdrawal, unspecified (5) Pancreatitis ICD Codes: K85.90 - Acute pancreatitis without necrosis or infection, unspecified SNOMED: 17494290 Qualifiers: Qualified Codes: K85.20 - Alcohol induced acute pancreatitis without necrosis or infection (6) Thrombocytopenia ICD Codes: D69.6 - Thrombocytopenia, unspecified SNOMED: 149669407 (7) Hyponatremia ICD Codes: E87.1 - Hypo-osmolality and hyponatremia SNOMED: 33940638 Status: stable Status Narrative Discussed with Dr. Wright Assessment/Plan Discriminant function calculated, no need for glucocorticoid therapy. Patient more alert and oriented. ST evaluation to advance diet Folate anemia work up OB stool r/o GI bleed monitor H&H, prn transfusions bowel regime ppi fu labs avoid alcohol trend LFTs NGTF add lactulose and Xifaxan The patient was seen and examined at bedside and all new and available data was reviewed in the patients chart. I agree with the above findings, impression and plan. (Patient seen earlier today. Signature stamp does not reflect patient encounter time.). - Daniel Wright MD Subjective Subjective limited Objective Last 24 Hour Vital Signs Date Time Temp Pulse Resp B/P (MAP) Pulse Ox O2 Delivery O2 Flow Rate FiO2 09/27/18 04:00 97.7 67 18 102/64 (77) 96 09/27/18 04:00 67 09/27/18 00:00 68 09/27/18 00:00 98.0 68 17 99/62 (74) 97 09/26/18 21:00 Room Air 09/26/18 20:00 67 09/26/18 20:00 98.8 67 17 114/64 (81) 97 09/26/18 16:00 97.6 71 20 129/81 (97) 97 09/26/18 16:00 68 09/26/18 14:00 64 107/71 09/26/18 12:00 97.9 75 20 107/71 (83) 97 09/26/18 12:00 69 Intake and Output 09/26/18 09/27/18 19:00 07:00 Intake Total 220 ml 290 ml Output Total 800 ml 750 ml Balance -580 ml -460 ml Intake Oral 80 ml Free Water 100 ml 180 ml Tube Feeding 40 ml 110 ml Output Urine Total 800 ml 750 ml # Bowel Movements 1 5 Laboratory Tests Test 09/27/18 05:50 White Blood Count 6.0 K/UL (4.8-10.8) Red Blood Count 4.00 M/UL (4.70-6.10) L Hemoglobin 9.9 G/DL (14.2-18.0) L Hematocrit 31.9 % (42.0-52.0) L Mean Corpuscular Volume 80 FL (80-99) Mean Corpuscular Hemoglobin 24.8 PG (27.0-31.0) L Mean Corpuscular Hemoglobin Concent 31.1 G/DL (32.0-36.0) L Red Cell Distribution Width 24.2 % (11.6-14.8) H Platelet Count 214 K/UL (150-450) Mean Platelet Volume 11.4 FL (6.5-10.1) H Neutrophils (%) (Auto) 62.0 % (45.0-75.0) Lymphocytes (%) (Auto) 17.4 % (20.0-45.0) L Monocytes (%) (Auto) 14.7 % (1.0-10.0) H Eosinophils (%) (Auto) 3.3 % (0.0-3.0) H Basophils (%) (Auto) 2.6 % (0.0-2.0) H Sodium Level 141 MMOL/L (136-145) Potassium Level 3.9 MMOL/L (3.5-5.1) Chloride Level 108 MMOL/L (98-107) H Carbon Dioxide Level 25 MMOL/L (21-32) Anion Gap 8 mmol/L (5-15) Blood Urea Nitrogen 1 mg/dL (7-18) L Creatinine 0.8 MG/DL (0.55-1.30) Estimat Glomerular Filtration Rate > 60 mL/min (>60) Glucose Level 105 MG/DL (74-106) Calcium Level 8.8 MG/DL (8.5-10.1) Phosphorus Level Pending Magnesium Level Pending Total Bilirubin 1.0 MG/DL (0.2-1.0) Aspartate Amino Transf (AST/SGOT) 76 U/L (15-37) H Alanine Aminotransferase (ALT/SGPT) 57 U/L (12-78) Alkaline Phosphatase 52 U/L (46-116) Ammonia 71 umol/L (11-32) H Total Protein 6.7 G/DL (6.4-8.2) Albumin 2.7 G/DL (3.4-5.0) L Globulin 4.0 g/dL Albumin/Globulin Ratio 0.7 (1.0-2.7) L Height (Feet): 5 Height (Inches): 7.00 Weight (Pounds): 150 General Appearance: WD/WN, no apparent distress, alert Cardiovascular: normal rate Respiratory/Chest: normal breath sounds, no respiratory distress Abdominal Exam: normal bowel sounds, non tender, soft, other - NGT Extremities: normal range of motion, non-tender Susan Burnette BENDING FRAME OPERATOR September 27, 2018 09:50
--- NOTE | 2018-09-27 10:36 | Infectious Diseases Prog Note ---
Assessment/Plan Assessment/Plan IMPRESSION: Acute pancreatitis, likely alcoholic anemia thrombocytopenia leukocytosis resolved alcohol withdrawal, hyponatremia Fatty liver R kidney angiomyolipoma. RECOMMENDATION: Observe off antibiotic Subjective ROS Limited/Unobtainable: Yes Neurologic: Reports: other - more alert, on restraint Allergies: Coded Allergies: No Known Allergies (Unverified , 09/21/18) Objective Vital Signs Last 24 Hour Vital Signs Date Time Temp Pulse Resp B/P (MAP) Pulse Ox O2 Delivery O2 Flow Rate FiO2 09/27/18 08:00 98.0 68 20 104/62 (76) 100 09/27/18 04:00 97.7 67 18 102/64 (77) 96 09/27/18 04:00 67 09/27/18 00:00 68 09/27/18 00:00 98.0 68 17 99/62 (74) 97 09/26/18 21:00 Room Air 09/26/18 20:00 67 09/26/18 20:00 98.8 67 17 114/64 (81) 97 09/26/18 16:00 97.6 71 20 129/81 (97) 97 09/26/18 16:00 68 09/26/18 14:00 64 107/71 09/26/18 12:00 97.9 75 20 107/71 (83) 97 09/26/18 12:00 69 Height (Feet): 5 Height (Inches): 7.00 Weight (Pounds): 150 General Appearance: no acute distress HEENT: mucous membranes moist Respiratory/Chest: lungs clear Cardiovascular: normal rate Abdomen: soft, non tender, other - NG tube feeding Extremities: no edema Neurologic/Psychiatric: alert, responsive Laboratory Tests Test 09/27/18 05:50 White Blood Count 6.0 K/UL (4.8-10.8) Red Blood Count 4.00 M/UL (4.70-6.10) L Hemoglobin 9.9 G/DL (14.2-18.0) L Hematocrit 31.9 % (42.0-52.0) L Mean Corpuscular Volume 80 FL (80-99) Mean Corpuscular Hemoglobin 24.8 PG (27.0-31.0) L Mean Corpuscular Hemoglobin Concent 31.1 G/DL (32.0-36.0) L Red Cell Distribution Width 24.2 % (11.6-14.8) H Platelet Count 214 K/UL (150-450) Mean Platelet Volume 11.4 FL (6.5-10.1) H Neutrophils (%) (Auto) 62.0 % (45.0-75.0) Lymphocytes (%) (Auto) 17.4 % (20.0-45.0) L Monocytes (%) (Auto) 14.7 % (1.0-10.0) H Eosinophils (%) (Auto) 3.3 % (0.0-3.0) H Basophils (%) (Auto) 2.6 % (0.0-2.0) H Sodium Level 141 MMOL/L (136-145) Potassium Level 3.9 MMOL/L (3.5-5.1) Chloride Level 108 MMOL/L (98-107) H Carbon Dioxide Level 25 MMOL/L (21-32) Anion Gap 8 mmol/L (5-15) Blood Urea Nitrogen 1 mg/dL (7-18) L Creatinine 0.8 MG/DL (0.55-1.30) Estimat Glomerular Filtration Rate > 60 mL/min (>60) Glucose Level 105 MG/DL (74-106) Calcium Level 8.8 MG/DL (8.5-10.1) Phosphorus Level 4.0 MG/DL (2.5-4.9) Magnesium Level 2.2 MG/DL (1.8-2.4) Total Bilirubin 1.0 MG/DL (0.2-1.0) Aspartate Amino Transf (AST/SGOT) 76 U/L (15-37) H Alanine Aminotransferase (ALT/SGPT) 57 U/L (12-78) Alkaline Phosphatase 52 U/L (46-116) Ammonia 71 umol/L (11-32) H Total Protein 6.7 G/DL (6.4-8.2) Albumin 2.7 G/DL (3.4-5.0) L Globulin 4.0 g/dL Albumin/Globulin Ratio 0.7 (1.0-2.7) L Current Medications Medications (Trade) Dose Ordered Sig/Socrates Route PRN Reason Start Time Stop Time Status Last Admin Dose Admin Chlordiazepoxide (Librium) 50 mg TID NG 09/27/18 09:00 09/29/18 17:59 09/27/18 09:22 Dextrose/ Electrolytes 1,000 ml @ 50 mls/hr Q20H IV 09/26/18 15:53 10/26/18 15:52 Divalproex Sodium (Depakote Sprinkles) 250 mg BID GT 09/26/18 00:30 10/26/18 00:29 09/27/18 09:22 Famotidine (Pepcid) 20 mg BID ORAL 09/26/18 18:00 10/26/18 17:59 09/27/18 09:22 Folic Acid (Folate) 2 mg DAILY NG 09/27/18 09:00 10/22/18 08:59 09/27/18 09:22 Iron Sucrose 100 mg/Sodium Chloride 60 ml @ 240 mls/hr BEDTIME IV 09/23/18 21:00 09/27/18 21:14 09/26/18 21:47 Lactulose (Cephulac) 20 gm THREE TIMES A DAY NG 09/27/18 09:00 10/26/18 12:59 09/27/18 09:23 Levetiracetam (Keppra) 500 mg Q12HR NG 09/25/18 23:15 10/24/18 20:59 09/27/18 09:22 Levothyroxine Sodium (Synthroid) 112 mcg DAILY@0630 NG 09/27/18 06:30 10/27/18 06:29 09/27/18 06:49 Ondansetron HCl (Zofran) 4 mg Q6H PRN IVP Nausea & Vomiting 09/21/18 20:30 10/21/18 20:29 Potassium Chloride (K-Dur) 40 meq DAILY ORAL 09/23/18 09:00 10/23/18 08:59 09/27/18 09:23 Quetiapine Fumarate (SEROquel) 25 mg DAILY PRN ORAL AGITATION 09/27/18 09:00 10/27/18 08:59 Rifaximin (Xifaxan) 550 mg EVERY 12 HOURS NG 09/26/18 21:00 10/03/18 20:59 09/27/18 09:22 Thiamine HCl (Vitamin B1) 100 mg DAILY NG 09/27/18 09:00 10/25/18 08:59 09/27/18 09:22 Tyrell Yee MD September 27, 2018 10:36
--- NOTE | 2018-09-27 11:46 | Nephrology Progress Note ---
Assessment/Plan Problem List: (1) Hyponatremia (2) Pancreatitis (3) Alcohol withdrawal seizure (4) Anemia Assessment HypoNatremia Alcoholic liver disease and pancreatitis ETOH Withdraw Sz Lipase lowering Plan NGT feeding down on hydrate DC Inderal librium thiamin monitor lytes and lipase Keppra Folate gastric support Subjective ROS Limited/Unobtainable: No Constitutional: Reports: malaise, other - feels stronger Objective Objective Last 24 Hour Vital Signs Date Time Temp Pulse Resp B/P (MAP) Pulse Ox O2 Delivery O2 Flow Rate FiO2 09/27/18 08:30 Room Air 09/27/18 08:00 98.0 68 20 104/62 (76) 100 09/27/18 08:00 69 09/27/18 04:00 97.7 67 18 102/64 (77) 96 09/27/18 04:00 67 09/27/18 00:00 68 09/27/18 00:00 98.0 68 17 99/62 (74) 97 09/26/18 21:00 Room Air 09/26/18 20:00 67 09/26/18 20:00 98.8 67 17 114/64 (81) 97 09/26/18 16:00 97.6 71 20 129/81 (97) 97 09/26/18 16:00 68 09/26/18 14:00 64 107/71 09/26/18 12:00 97.9 75 20 107/71 (83) 97 09/26/18 12:00 69 Intake and Output 09/26/18 09/27/18 19:00 07:00 Intake Total 220 ml 290 ml Output Total 800 ml 750 ml Balance -580 ml -460 ml Intake Oral 80 ml Free Water 100 ml 180 ml Tube Feeding 40 ml 110 ml Output Urine Total 800 ml 750 ml # Bowel Movements 1 5 Laboratory Tests 09/27/18 05:50: White Blood Count 6.0, Red Blood Count 4.00L, Hemoglobin 9.9L, Hematocrit 31.9L , Mean Corpuscular Volume 80, Mean Corpuscular Hemoglobin 24.8L, Mean Corpuscular Hemoglobin Concent 31.1L, Red Cell Distribution Width 24.2H, Platelet Count 214, Mean Platelet Volume 11.4H, Neutrophils (%) (Auto) 62.0, Lymphocytes (%) (Auto) 17.4L, Monocytes (%) (Auto) 14.7H, Eosinophils (%) (Auto ) 3.3H, Basophils (%) (Auto) 2.6H, Sodium Level 141, Potassium Level 3.9, Chloride Level 108H, Carbon Dioxide Level 25, Anion Gap 8, Blood Urea Nitrogen 1L, Creatinine 0.8, Estimat Glomerular Filtration Rate > 60, Glucose Level 105, Calcium Level 8.8, Phosphorus Level 4.0, Magnesium Level 2.2, Total Bilirubin 1.0, Aspartate Amino Transf (AST/SGOT) 76H, Alanine Aminotransferase (ALT/SGPT) 57, Alkaline Phosphatase 52, Ammonia 71H, Total Protein 6.7, Albumin 2.7L, Globulin 4.0, Albumin/Globulin Ratio 0.7L Height (Feet): 5 Height (Inches): 7.00 Weight (Pounds): 150 General Appearance: no apparent distress, lethargic Cardiovascular: normal rate Respiratory/Chest: decreased breath sounds Abdomen: soft Objective no change Mode Krishnan MD September 27, 2018 11:46
--- NOTE | 2018-09-27 11:47 | Diagnostic Imaging Report ---
Indication: Nasogastric tube placement Comparison: 09/26/2018 Single view of the abdomen obtained Findings: NG tube is in good position with the proximal port and tip well situated in the stomach. IMPRESSION: NG tube in good position
[2018-09-27 12:00] VITALS: BP 97/62
--- NOTE | 2018-09-27 12:11 | NUR ---
CASE MANAGEMENT:REVIEW 09/25/18 SI: ALCOHOL WITHDRAWALS. SEIZURE PANCREATITIS 98.9 105 18 121/71 98% ON RA H/H-9.9/31.9 IS: IVF@100/HR IV KEPPRA Q12 IV PEPCID Q12 IV ZOSYN Q8HRS LIBRIUM PO TID DEPAKOTE PO Q12 K-DUR PO QD IV VENOFER QHS : TELEMETRY STATUS 09/26/18 SI: ALCOHOL WITHDRAWALS. SEIZURE PANCREATITIS 97.9 75 20 107/71 97% ON RA H/H-9.6/31.3 IS: IVF@100/HR IV KEPPRA Q12 IV PEPCID Q12 IV ZOSYN Q8HRS LIBRIUM PO TID DEPAKOTE PO Q12 K-DUR PO QD IV VENOFER QHS : TELEMETRY STATUS 09/27/18 SI: ALCOHOL WITHDRAWALS. SEIZURE PANCREATITIS 97.6 71 20 129/81 97% ON RA IS: IVF@50/HR THIAMINE NG QD LIBRIUM NG TID FOLATE NG QD LACTULOSE NG TID RIFAXIMIN NG Q12 KEPPRA NG Q12 DEPAKOTE NG Q12 IV VENOFER QHS K-DUR NG QD : TELEMETRY STATUS
[2018-09-27] MEDS: D5NS w/KCl 40mEq 1000ml 1,000 ML IV SCH (12:17)
--- NOTE | 2018-09-27 13:19 | NUR ---
RD ASSESSMENT & RECOMMENDATIONS SEE CARE ACTIVITY FOR COMPLETE ASSESSMENT DAILY ESTIMATED NEEDS: Needs based on liver dysfunction, 66kg 25-30 kcals/kg 4034-0148 total kcals 1-1.5 g protein/kg 66-99 g total protein 25-30 mL/kg 4249-7969 total fluid mLs NUTRITION DIAGNOSIS: Swallowing difficulty R/T dysphagia, confusion w/ alcohol withdrawal as evidenced by ALARM INSTALLATION TECHNICIAN recommends NPO at this time, w/ an order for NGT insertion. CURRENT TF:Vital 1.2 @55ml x22 hrs PO DIET RECOMMENDATIONS: WHEN SAFE FOR PO-> LOW NA, LOW FAT/ texture per ALARM INSTALLATION TECHNICIAN ENTERAL NUTRITION RECOMMENDATIONS: Jevity 1.2 @ 65ml/hr x 24 hrs to provide 1560ml, 1872kcal, 86g prot, 1259ml free water * W/ GI access, initiate Jevity 1.2 @ 15ml/hr x 6 hrs * Advance 10ml q 4-6 hrs as tolerated to goal rate. * HOB over 30 degrees/ water flush per MD. ADDITIONAL RECOMMENDATIONS: * Calibrated bedscale wt for accurate CBW * Monitor lytes daily w/ TF, replete as needed * Monitor ability for PO intake * DC added D5 when TF resumes/ prevent hyperglycemia
[2018-09-27 16:00] VITALS: BP 95/56
--- NOTE | 2018-09-27 16:41 | General Progress Note ---
Assessment/Plan Status: stable Assessment/Plan: Assessment and Recs: # Pancytopenia -- multiple etiologies could be related to underlying liver disease, in this case is very likely related to etoh ABUse and myelosuppression of the bone marrow, very common to alcoholics --> peripheral smear has been ordered and does not show significant abnormalities --> Medications have been reviewed --> Continue to monitor for improvement, trend cbc --> Hep panel and HIV have been reviewed and are negative --> US abd has been reviewed, fatty infiltration is noted --> consider other causes, infections that could contribute --> Reverse isolation if ANC is <2000 --> Give neupogen if ANC <1000 --> Transfuse if hgb <7, with 1 unit prbc # Anemia of iron deficiency, ferritin is <50 --> As per gi eval as needed --> No evidence of hemolysis is noted, peripheral smear has been reviewed. --> Hgb goal >7. Transfuse prn. --> Medications have been reviewed --> iv iron x 5 days started # Alcohol withdrawal p/w pancreatitis --> Monitor for alcohol withdrawal seizure --> currently w/o seizures # Impending delirium tremens --> recommend cessation etoh # Hyponatremia # Pancreatitis # HYperbilirubinemia as per above The timing of this note does not necessarily reflect the time of the patient was seen. Greatly appreciate consultation! Subjective Constitutional: Denies: no symptoms, chills, diaphoresis, fever, malaise, weakness, other Respiratory: Denies: no symptoms, cough, orthopnea, shortness of breath, SOB with excertion, SOB at rest, sputum, stridor, wheezing, other Gastrointestinal/Abdominal: Denies: no symptoms, abdomen distended, abdominal pain, black stools, tarry stools, blood in stool, constipated, diarrhea, difficulty swallowing, nausea, poor appetite, poor fluid intake, rectal bleeding , vomiting, other Genitourinary: Denies: no symptoms, burning, discharge, frequency, flank pain, hematuria, incontinence, pain, urgency, other Neurologic/Psychiatric: Denies: no symptoms, anxiety, depressed, emotional problems, headache, numbness, paresthesia, pre-existing deficit, seizure, tingling, tremors, weakness, other Endocrine: Denies: no symptoms, excessive sweating, flushing, intolerance to cold, intolerance to heat, increased hunger, increased thirst, increased urine, unexplained weight gain, unexplained weight loss, other Allergies: Coded Allergies: No Known Allergies (Unverified , 09/21/18) Subjective 09/23: no events noted, less altered, cbc reviewed 09/24: labs reviewed, no events, no f/c 09/26: off abx, agitated and ng was pulled out 09/27: ngt is in place, no fevers or chills noted, venofer continued Objective Last 24 Hour Vital Signs Date Time Temp Pulse Resp B/P (MAP) Pulse Ox O2 Delivery O2 Flow Rate FiO2 09/27/18 12:00 70 09/27/18 12:00 98.1 71 20 97/62 (74) 100 09/27/18 08:30 Room Air 09/27/18 08:00 98.0 68 20 104/62 (76) 100 09/27/18 08:00 69 09/27/18 04:00 97.7 67 18 102/64 (77) 96 09/27/18 04:00 67 09/27/18 00:00 68 09/27/18 00:00 98.0 68 17 99/62 (74) 97 09/26/18 21:00 Room Air 09/26/18 20:00 67 09/26/18 20:00 98.8 67 17 114/64 (81) 97 Intake and Output 09/26/18 09/27/18 19:00 07:00 Intake Total 220 ml 290 ml Output Total 800 ml 750 ml Balance -580 ml -460 ml Intake Oral 80 ml Free Water 100 ml 180 ml Tube Feeding 40 ml 110 ml Output Urine Total 800 ml 750 ml # Bowel Movements 1 5 Laboratory Tests 09/27/18 05:50: White Blood Count 6.0, Red Blood Count 4.00L, Hemoglobin 9.9L, Hematocrit 31.9L , Mean Corpuscular Volume 80, Mean Corpuscular Hemoglobin 24.8L, Mean Corpuscular Hemoglobin Concent 31.1L, Red Cell Distribution Width 24.2H, Platelet Count 214, Mean Platelet Volume 11.4H, Neutrophils (%) (Auto) 62.0, Lymphocytes (%) (Auto) 17.4L, Monocytes (%) (Auto) 14.7H, Eosinophils (%) (Auto ) 3.3H, Basophils (%) (Auto) 2.6H, Sodium Level 141, Potassium Level 3.9, Chloride Level 108H, Carbon Dioxide Level 25, Anion Gap 8, Blood Urea Nitrogen 1L, Creatinine 0.8, Estimat Glomerular Filtration Rate > 60, Glucose Level 105, Calcium Level 8.8, Phosphorus Level 4.0, Magnesium Level 2.2, Total Bilirubin 1.0, Aspartate Amino Transf (AST/SGOT) 76H, Alanine Aminotransferase (ALT/SGPT) 57, Alkaline Phosphatase 52, Ammonia 71H, Total Protein 6.7, Albumin 2.7L, Globulin 4.0, Albumin/Globulin Ratio 0.7L Height (Feet): 5 Height (Inches): 7.00 Weight (Pounds): 150 Objective Sp02 EP: reviewed, normal General Appearance: well appearing, no apparent distress, GCS 15 Head: normocephalic Eyes: bilateral eye normal inspection, bilateral eye PERRL, bilateral eye EOMI ENT: moist mucus membranes Neck: supple Respiratory: lungs clear, normal breath sounds Cardiovascular: regular rate, rhythm, 2+ radial (R) Gastrointestinal: normal inspection, normal bowel sounds, non tender, no mass, non-distended Musculoskeletal: back normal, gait/station normal, normal range of motion Neurologic: alert, oriented x3, burial needs salesperson III-XII nml as tested Psychiatric: anxious Skin: normal inspection, warm/dry Avery Bell MD September 27, 2018 16:41
--- NOTE | 2018-09-27 19:17 | NUR ---
HAND-OFF: Report given to GWENDOLYN Barrett.
--- NOTE | 2018-09-27 19:18 | NUR ---
NURSE NOTES: Got report from Alisha SNOW. Pt in stable condition. Denies any pain. No s/s of distress or discomfort noted. Pt resting in bed comfortably. Bed in low and locked position, call light within reach, bedside table within reach. Continue to monitor. Addendum: 09/28/18 at 0505 by Anam Handy RN Per report from Alisha SNOW Pt on Vital AF 1.2 Tube feeding at 30ml/hr thru NGT. Pt also has D5NS w/40mEQ KCl @50mL/hr thru left AC iv site..
[2018-09-27 20:00] VITALS: BP 96/56
[2018-09-27] MEDS: Iron Sucrose 100 MG in NS 55 ML IV SCH (20:42)
[2018-09-27] MEDS: chlordiazePOXIDE 25mg Cap ORAL SCH (20:43)
--- NOTE | 2018-09-27 21:38 | Neurology Progress Note ---
Interim History Interim History ROS Limited/Unobtainable: No Complaints: AMS/ Weakness Events: Remains intermittently confused but improving Interim History Intermittently oriented and following commands Review of Systems All Systems: reviewed and negative except above Objective Physical Exam Last Vital Signs Date Time Temp Pulse Resp B/P (MAP) Pulse Ox O2 Delivery O2 Flow Rate FiO2 09/27/18 16:00 98.3 79 20 95/56 (69) 100 09/27/18 08:30 Room Air 09/21/18 18:30 4.0 Laboratory Tests Test 09/27/18 05:50 White Blood Count 6.0 K/UL (4.8-10.8) Red Blood Count 4.00 M/UL (4.70-6.10) L Hemoglobin 9.9 G/DL (14.2-18.0) L Hematocrit 31.9 % (42.0-52.0) L Mean Corpuscular Volume 80 FL (80-99) Mean Corpuscular Hemoglobin 24.8 PG (27.0-31.0) L Mean Corpuscular Hemoglobin Concent 31.1 G/DL (32.0-36.0) L Red Cell Distribution Width 24.2 % (11.6-14.8) H Platelet Count 214 K/UL (150-450) Mean Platelet Volume 11.4 FL (6.5-10.1) H Neutrophils (%) (Auto) 62.0 % (45.0-75.0) Lymphocytes (%) (Auto) 17.4 % (20.0-45.0) L Monocytes (%) (Auto) 14.7 % (1.0-10.0) H Eosinophils (%) (Auto) 3.3 % (0.0-3.0) H Basophils (%) (Auto) 2.6 % (0.0-2.0) H Sodium Level 141 MMOL/L (136-145) Potassium Level 3.9 MMOL/L (3.5-5.1) Chloride Level 108 MMOL/L (98-107) H Carbon Dioxide Level 25 MMOL/L (21-32) Anion Gap 8 mmol/L (5-15) Blood Urea Nitrogen 1 mg/dL (7-18) L Creatinine 0.8 MG/DL (0.55-1.30) Estimat Glomerular Filtration Rate > 60 mL/min (>60) Glucose Level 105 MG/DL (74-106) Calcium Level 8.8 MG/DL (8.5-10.1) Phosphorus Level 4.0 MG/DL (2.5-4.9) Magnesium Level 2.2 MG/DL (1.8-2.4) Total Bilirubin 1.0 MG/DL (0.2-1.0) Aspartate Amino Transf (AST/SGOT) 76 U/L (15-37) H Alanine Aminotransferase (ALT/SGPT) 57 U/L (12-78) Alkaline Phosphatase 52 U/L (46-116) Ammonia 71 umol/L (11-32) H Total Protein 6.7 G/DL (6.4-8.2) Albumin 2.7 G/DL (3.4-5.0) L Globulin 4.0 g/dL Albumin/Globulin Ratio 0.7 (1.0-2.7) L General: well developed, well nourished Head: normocophalic Neck: no rigidity EENT: benign Neurologic Exam Mental Status: awake, alert, other - Currently waxing and waning in consciousness and orientation Language: other - Primarily Turkish speaking and very softly spoken Cranial Nerve II: fundus normal, visual restrepo Cranial Nerves III, IV, : PERRLA, EOMI Cranial Nerve V: normal facial sensations Cranial Nerve VII: no facial asymmetry Cranial Nerve VIII: normal hearing Cranial Nerve IX: normal palate elevation Cranial Nerve X: no voice hoarseness Cranial Nerve XI: SCM symmetric Cranial Nerve XII: tongue midline Motor System: normal muscle tone, strength 5/5 Sensory: normal pinprick, normal light touch Coordination: normal finger to nose bilaterally, normal heel to singh bilaterally Deep Tendon Reflexes: 2+ bicep (L), 2+ bicep (R), 2+ tricep (L), 2+ tricep (R) , 2+ brachioradialis (L), 2+ brachioradialis (R), 2+ knee (L), 2+ knee (R), 2+ ankle (L), 2+ ankle (R) Reflexes: flexor plantar (L), flexor plantar (R); extensor plantar (L), extensor plantar (R) Impression/Recommendations Problems: (1) Hyponatremia (2) Alcohol withdrawal seizure (3) Alcoholic hepatitis (4) Alcoholic pancreatitis (5) Alcohol withdrawal (6) Acute alcohol intoxication delirium with moderate or severe use disorder (7) AMS (8) Acute hypoactive alcohol intoxication delirium without use disorder (9) Hypothyroidism Status: stable Recommendations Somewhat improved but still hypoactive - Consider more daytime stim with PT Continue observation Recs: Consider adding Lactulose for improved hepatobiliary excretion Correct Thyroid as per PM/ Endo recs - Levothyroxine supplementation at 1.6mcg/ kg- Started Q 4 Hour neuro obs- Maintain sleep hygiene by making room dark and quiet in the evening. Frequently reorient the patient, if confused Encourage family/ friend visits PT/OT OOB in chair Discourage/ Avoid / Minimize use of benzodiazapenes , anticholinergics, or opioid narcotics. Soraya Donis N.P. September 27, 2018 21:37
--- NOTE | 2018-09-27 21:47 | General Progress Note ---
Assessment/Plan Problem List: (1) Pancreatitis ICD Codes: K85.90 - Acute pancreatitis without necrosis or infection, unspecified SNOMED: 96380275 Qualifiers: Qualified Codes: K85.20 - Alcohol induced acute pancreatitis without necrosis or infection (2) Thrombocytopenia ICD Codes: D69.6 - Thrombocytopenia, unspecified SNOMED: 149136639 (3) Hyponatremia ICD Codes: E87.1 - Hypo-osmolality and hyponatremia SNOMED: 36320295 (4) Alcohol withdrawal seizure ICD Codes: F10.239 - Alcohol dependence with withdrawal, unspecified; R56.9 - Unspecified convulsions SNOMED: 104573990 Qualifiers: Qualified Codes: F10.239 - Alcohol dependence with withdrawal, unspecified; R56.9 - Unspecified convulsions (5) Alcohol withdrawal ICD Codes: F10.239 - Alcohol dependence with withdrawal, unspecified SNOMED: 772278569 Qualifiers: Qualified Codes: F10.239 - Alcohol dependence with withdrawal, unspecified (6) Anemia ICD Codes: D64.9 - Anemia, unspecified SNOMED: 705127035 (7) Alcoholic hepatitis ICD Codes: K70.10 - Alcoholic hepatitis without ascites SNOMED: 976169632 (8) Alcoholic pancreatitis ICD Codes: K85.20 - Alcohol induced acute pancreatitis without necrosis or infection SNOMED: 513284454 (9) Alcohol dependence ICD Codes: F10.20 - Alcohol dependence, uncomplicated SNOMED: 76163029 Status: stable, progressing Assessment/Plan: still confused vitals stable elevated lft is improving etoh pancreatitis improving Subjective ROS Limited/Unobtainable: Yes Allergies: Coded Allergies: No Known Allergies (Unverified , 09/21/18) Objective Last 24 Hour Vital Signs Date Time Temp Pulse Resp B/P (MAP) Pulse Ox O2 Delivery O2 Flow Rate FiO2 09/27/18 16:00 98.3 79 20 95/56 (69) 100 09/27/18 16:00 80 09/27/18 12:00 70 09/27/18 12:00 98.1 71 20 97/62 (74) 100 09/27/18 08:30 Room Air 09/27/18 08:00 98.0 68 20 104/62 (76) 100 09/27/18 08:00 69 09/27/18 04:00 97.7 67 18 102/64 (77) 96 09/27/18 04:00 67 09/27/18 00:00 68 09/27/18 00:00 98.0 68 17 99/62 (74) 97 Intake and Output 09/26/18 09/27/18 19:00 07:00 Intake Total 220 ml 300 ml Output Total 800 ml 750 ml Balance -580 ml -450 ml Intake Oral 80 ml Free Water 100 ml 180 ml Tube Feeding 40 ml 120 ml Output Urine Total 800 ml 750 ml # Bowel Movements 1 5 Laboratory Tests 09/27/18 05:50: White Blood Count 6.0, Red Blood Count 4.00L, Hemoglobin 9.9L, Hematocrit 31.9L , Mean Corpuscular Volume 80, Mean Corpuscular Hemoglobin 24.8L, Mean Corpuscular Hemoglobin Concent 31.1L, Red Cell Distribution Width 24.2H, Platelet Count 214, Mean Platelet Volume 11.4H, Neutrophils (%) (Auto) 62.0, Lymphocytes (%) (Auto) 17.4L, Monocytes (%) (Auto) 14.7H, Eosinophils (%) (Auto ) 3.3H, Basophils (%) (Auto) 2.6H, Sodium Level 141, Potassium Level 3.9, Chloride Level 108H, Carbon Dioxide Level 25, Anion Gap 8, Blood Urea Nitrogen 1L, Creatinine 0.8, Estimat Glomerular Filtration Rate > 60, Glucose Level 105, Calcium Level 8.8, Phosphorus Level 4.0, Magnesium Level 2.2, Total Bilirubin 1.0, Aspartate Amino Transf (AST/SGOT) 76H, Alanine Aminotransferase (ALT/SGPT) 57, Alkaline Phosphatase 52, Ammonia 71H, Total Protein 6.7, Albumin 2.7L, Globulin 4.0, Albumin/Globulin Ratio 0.7L Height (Feet): 5 Height (Inches): 7.00 Weight (Pounds): 150 General Appearance: confused Cardiovascular: normal rate Respiratory/Chest: lungs clear Abdomen: soft Nitesh Melvin MD September 27, 2018 21:47
--- NOTE | 2018-09-27 23:15 | Progress Note ---
DATE: 09/27/2018 SUBJECTIVE: The patient is much calmer. He is less agitated on Librium and is compliant. He has not had any seizures. Able to sleep throughout the night. The patient is more alert. MENTAL STATUS EXAMINATION: Alert and oriented times self and place. Mood is less agitated. Continues to be anxious. Affect is constricted. Congruent with mood. Thought process is concrete. Thought content, no suicidal or homicidal ideations. ASSESSMENT: 1. Alcohol withdrawal. 2. Alcohol dependence. PLAN: 1. We will start the patient on Valium 10 mg every 4 hours p.r.n. 2. Discontinue the Seroquel that was started by Neurology. 3. We will continue the Librium and we will decrease it to 25 mg t.i.d. in the morning, 25 mg in the afternoon, and 50 mg at bedtime. Nabil Burr M.D. DR: ERAN JOB#: [id number] CC:
[2018-09-28] VITALS: BP 99/57
[2018-09-28 04:00] VITALS: BP 115/66
--- NOTE | 2018-09-28 07:15 | NUR ---
HAND-OFF: Report given to Julianna/Jennifer SNOW. Endorsed plan of care.
--- NOTE | 2018-09-28 07:20 | NUR ---
NURSE NOTES: Report received from GWENDOLYN Barrett. Pt shows no signs of distress, no SOB, complains of mild sore throat. A+Ox2/3. Respirations are even and unlabored on room air. IV site is patent, intact, and running fluids at prescribed rate. NG tube is in place, patent, and running feeding at prescribed rate. Soft wrist restraints are in place and pt has no signs of skin breakdown. Bed is at lowest position, brakes engaged, siderails x3, bed alarm on, and call light within reach. Pt is in stable condition at this time; will continue to monitor.
[2018-09-28 07:37] LABS: BASOPHILS % (AUTO) 1.5 % (0.0-2.0); EOSINOPHILS % (AUTO) 2.9 % (0.0-3.0); HEMATOCRIT 34.2 % (42.0-52.0); HEMOGLOBIN 10.6 G/DL (14.2-18.0); LYMPHOCYTES % (AUTO) 14.6 % (20.0-45.0); MEAN CORPUSCULAR VOLUME 81 FL (80-99); MONOCYTES % (AUTO) 11.6 % (1.0-10.0); NEUTROPHILS % (AUTO) 69.5 % (45.0-75.0); PLATELET COUNT 245 K/UL (150-450); RED BLOOD COUNT 4.24 M/UL (4.70-6.10); RED CELL DISTRIBUTION WIDTH 24.5 % (11.6-14.8)
[2018-09-28 07:53] LABS: ANION GAP 9 mmol/L (5-15); BLOOD UREA NITROGEN 2 mg/dL (7-18); CARBON DIOXIDE 24 MMOL/L (21-32); CHLORIDE 107 MMOL/L (98-107); CREATININE 0.8 MG/DL (0.55-1.30); POTASSIUM 3.9 MMOL/L (3.5-5.1); SODIUM 140 MMOL/L (136-145)
[2018-09-28 08:00] VITALS: BP 120/69
--- NOTE | 2018-09-28 08:53 | NUR ---
CASE MANAGEMENT:REVIEW 09/28/18 SI: ALCOHOL WITHDRAWALS. SEIZURE PANCREATITIS 97.9 73 17 99/57 98% ON RA H/H-10.6/34.2 IS: IVF@50/HR THIAMINE NG QD LIBRIUM NG TID FOLATE NG QD LACTULOSE NG TID RIFAXIMIN NG Q12 KEPPRA NG Q12 DEPAKOTE NG Q12 IV VENOFER QHS K-DUR NG QD : TELEMETRY STATUS
--- NOTE | 2018-09-28 08:56 | NUR ---
NURSE NOTES: Pt pulled out NG tube. Feeding stopped. Made RAIL TRANSPORTATION OPERATOR [place] aware and he ordered no re-insertion. Waiting for ST evaluation.
[2018-09-28] MEDS: Depakote 125mg Sprinkles GT SCH ×2 (09:00→17:35)
[2018-09-28] MEDS: Thiamine 100mg tab NG SCH (09:00)
[2018-09-28] MEDS: chlordiazePOXIDE 25mg Cap NG SCH ×2 (09:00→13:00)
[2018-09-28] MEDS: Lactulose 20gm/30ml UDC NG SCH ×3 (09:00→17:35)
--- NOTE | 2018-09-28 09:40 | NUR ---
NURSE NOTES: Due to no NG tube, restraints have been d/sterling because patient is calm. Will assess whether pt needs restraints when results of ST eval are in.
[2018-09-28] MEDS: D5NS w/KCl 40mEq 1000ml 1,000 ML IV SCH ×2 (09:43→22:30)
--- NOTE | 2018-09-28 09:57 | GI Progress Note ---
Assessment/Plan Problems: (1) Alcoholic pancreatitis ICD Codes: K85.20 - Alcohol induced acute pancreatitis without necrosis or infection SNOMED: 605117331 (2) Alcoholic hepatitis ICD Codes: K70.10 - Alcoholic hepatitis without ascites SNOMED: 587359333 (3) Anemia ICD Codes: D64.9 - Anemia, unspecified SNOMED: 464031024 (4) Alcohol withdrawal ICD Codes: F10.239 - Alcohol dependence with withdrawal, unspecified SNOMED: 327402823 Qualifiers: Qualified Codes: F10.239 - Alcohol dependence with withdrawal, unspecified (5) Pancreatitis ICD Codes: K85.90 - Acute pancreatitis without necrosis or infection, unspecified SNOMED: 65709876 Qualifiers: Qualified Codes: K85.20 - Alcohol induced acute pancreatitis without necrosis or infection (6) Thrombocytopenia ICD Codes: D69.6 - Thrombocytopenia, unspecified SNOMED: 366495857 (7) Hyponatremia ICD Codes: E87.1 - Hypo-osmolality and hyponatremia SNOMED: 51109348 Status: unchanged Status Narrative Discussed with Dr. Wright Assessment/Plan Discriminant function calculated, no need for glucocorticoid therapy. Patient more alert and oriented. ST evaluation to advance diet Folate OB stool r/o GI bleed monitor H&H, prn transfusions bowel regime ppi fu labs avoid alcohol trend LFTs add lactulose and Xifaxan The patient was seen and examined at bedside and all new and available data was reviewed in the patients chart. I agree with the above findings, impression and plan. (Patient seen earlier today. Signature stamp does not reflect patient encounter time.). - Daniel Wright MD Subjective Subjective limited Objective Last 24 Hour Vital Signs Date Time Temp Pulse Resp B/P (MAP) Pulse Ox O2 Delivery O2 Flow Rate FiO2 09/28/18 08:00 97.8 77 19 120/69 (86) 98 09/28/18 04:00 90 09/28/18 04:00 97.6 74 19 115/66 (82) 97 09/28/18 00:00 76 09/28/18 00:00 97.9 73 17 99/57 (71) 98 09/27/18 21:00 Room Air 09/27/18 20:00 97.5 79 18 96/56 (69) 100 09/27/18 20:00 78 09/27/18 16:00 98.3 79 20 95/56 (69) 100 09/27/18 16:00 80 09/27/18 12:00 70 09/27/18 12:00 98.1 71 20 97/62 (74) 100 Intake and Output 09/27/18 09/28/18 19:00 07:00 Intake Total 350 ml 30 ml Output Total 250 ml 500 ml Balance 100 ml -470 ml Free Water 120 ml Tube Feeding 230 ml 30 ml Output Urine Total 250 ml 500 ml # Bowel Movements 3 Laboratory Tests Test 09/28/18 06:36 White Blood Count 8.0 K/UL (4.8-10.8) Red Blood Count 4.24 M/UL (4.70-6.10) L Hemoglobin 10.6 G/DL (14.2-18.0) L Hematocrit 34.2 % (42.0-52.0) L Mean Corpuscular Volume 81 FL (80-99) Mean Corpuscular Hemoglobin 25.0 PG (27.0-31.0) L Mean Corpuscular Hemoglobin Concent 31.0 G/DL (32.0-36.0) L Red Cell Distribution Width 24.5 % (11.6-14.8) H Platelet Count 245 K/UL (150-450) Mean Platelet Volume 10.3 FL (6.5-10.1) H Neutrophils (%) (Auto) 69.5 % (45.0-75.0) Lymphocytes (%) (Auto) 14.6 % (20.0-45.0) L Monocytes (%) (Auto) 11.6 % (1.0-10.0) H Eosinophils (%) (Auto) 2.9 % (0.0-3.0) Basophils (%) (Auto) 1.5 % (0.0-2.0) Sodium Level 140 MMOL/L (136-145) Potassium Level 3.9 MMOL/L (3.5-5.1) Chloride Level 107 MMOL/L (98-107) Carbon Dioxide Level 24 MMOL/L (21-32) Anion Gap 9 mmol/L (5-15) Blood Urea Nitrogen 2 mg/dL (7-18) L Creatinine 0.8 MG/DL (0.55-1.30) Estimat Glomerular Filtration Rate > 60 mL/min (>60) Glucose Level 99 MG/DL (74-106) Calcium Level 9.0 MG/DL (8.5-10.1) Height (Feet): 5 Height (Inches): 7.00 Weight (Pounds): 150 General Appearance: WD/WN, no apparent distress, alert Cardiovascular: normal rate Respiratory/Chest: normal breath sounds, no respiratory distress Abdominal Exam: normal bowel sounds, non tender, soft Extremities: normal range of motion, non-tender Susan Burnette NP September 28, 2018 09:57
--- NOTE | 2018-09-28 10:30 | NUR ---
Social Service Note SW attempted to meet with patient with CM coordinator to obtain prior history. Patient not answering questions appropriately will continue to follow up. Communication in Bengali.
--- NOTE | 2018-09-28 10:33 | NUR ---
SWALLOW STATUS: NOT SEEN ON 09/27/18 DUE TO SCHEDULE CONFLICTS. WILL SEE TOMORROW. HAS 12 SAMOAN NGT. PLAN: CONTINUE WITH NONORAL FEEDINGS AND ORAL CARE FOR NOW.
--- NOTE | 2018-09-28 10:41 | NUR ---
SWALLOW/SPEECH THERAPY NOTE: SWALLOW STATUS: SUBJECTIVE: PATIENT ALERT BUT CONFUSED. ORIENTED TO CITY BUT NOT TO YEAR (CONFABULATED 1917). FROM [facility] AND [employer] ONLY. ABLE TO EXPRESS NEEDS BUT NEEDS REPETITION AT TIMES SINCE VOICE IS SOFTER. OBJECTIVE/ASSESSMENT: PULLED OUT NGT TODAY AND TAKING OFF LEADS FOR HEART MONITOR DUE TO CONFUSION. STATES HIS HEAD HURTS AND HE HAS DIARRHEA (PER RN THIS IS DUE TO FORMULA FROM NGT FEEDINGS). STATES HIS THROAT HAS BEEN HURTING FOR A WEEK DUE TO A COLD. ON 09/24/18, HE CHOKED ON JELLO (BUT NOT PUDDING) WITH RN. TODAY HE REFUSED PO TRIALS INITIALLY BECAUSE OF THROAT PAIN. LATER HE TOOK 3 TSP OF NECTAR THICK WATER AND COUGHED AFTER THE SWALLOW ON 3RD TRIAL. EACH TIME HE SWALLOWS HE WILL WINCE IF IN PAIN (ODYNOPHAGIA). REFUSED MORE PO TRIALS AND WILL LIKELY REFUSE BARIUM FOR MODIFIED BARIUM SWALLOW STUDY. PLAN: REINSERT NGT AND REINITIATE FEEDINGS. CONTINUE WITH ORAL CARE. 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 D/W RN (CHIRAG), CEM GI INTELLIGENCE APPLICATIONS, AND DR CRANDALL WHO WAS CHECKING ON THE PATIENT. Addendum: 09/28/18 at 1114 by SHANNAN DENTON BUN PANNER UPDATED SWALLOW/SPEECH THERAPY NOTE: SWALLOW STATUS: SUBJECTIVE: PATIENT ALERT BUT CONFUSED. ORIENTED TO CITY BUT NOT TO YEAR (CONFABULATED 1919). FROM [facility] AND [employer] ONLY. ABLE TO EXPRESS NEEDS BUT NEEDS REPETITION AT TIMES SINCE VOICE IS SOFTER. OBJECTIVE/ASSESSMENT: PULLED OUT NGT TODAY AND TAKING OFF LEADS FOR HEART MONITOR DUE TO CONFUSION. STATES HIS HEAD HURTS AND HE HAS DIARRHEA (PER RN THIS IS DUE TO FORMULA FROM NGT FEEDINGS). STATES HIS THROAT HAS BEEN HURTING FOR A WEEK DUE TO A COLD. ON 09/24/18, HE CHOKED ON JELLO (BUT NOT PUDDING) WITH RN. TODAY HE REFUSED PO TRIALS INITIALLY BECAUSE OF THROAT PAIN. LATER HE TOOK 3 TSP OF NECTAR THICK WATER AND COUGHED AFTER THE SWALLOW ON 3RD TRIAL. EACH TIME HE SWALLOWS HE WILL WINCE IF IN PAIN (ODYNOPHAGIA). REFUSED MORE PO TRIALS AND WILL LIKELY REFUSE BARIUM FOR MODIFIED BARIUM SWALLOW STUDY. SPOKE WITH HIS MOTHER ([employer] ONLY DEREK LEMA [phone]), BROTHER (SARA LEMA AT [phone]), AND SISTER (CATHY PARRISH AT [phone]). THEY ARE ALL IN AGREEMENT THAT THE PATIENT NEEDS A PEG. THEY DENIED HE HAD SWALLOWING AND MENTAL HEALTH ISSUES PRIOR TO HIS ADMIT. SARA IS THE BROTHER WHO SAID THE PATIENT TOLD HIM HE WASN'T FEELING WELL AND THAT IS WHY HE BROUGHT HIM INTO THE HOSPITAL. PT IS ON LIBRIUM AND VALIUM (SEE DR SIDDIQUI) AND PER NEUROLOGY INTELLIGENCE APPLICATIONS Snagita BARAJAS PATIENT HAS acute alcohol intoxication delirium with moderate or severe use disorder. PLAN: REINSERT NGT AND REINITIATE FEEDINGS. CONTINUE WITH ORAL CARE. 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 D/W RN (CHIRAG), CEM GI INTELLIGENCE APPLICATIONS, AND DR CRANDALL WHO WAS CHECKING ON THE PATIENT.
--- NOTE | 2018-09-28 11:47 | Nephrology Progress Note ---
Assessment/Plan Problem List: (1) Hyponatremia (2) Pancreatitis (3) Alcohol withdrawal seizure (4) Anemia Assessment HypoNatremia Alcoholic liver disease and pancreatitis ETOH Withdraw Sz Lipase lowering Plan St eval Med surg transfer down on hydrate DC Inderal librium thiamin monitor lytes and lipase Keppra Folate gastric support Subjective ROS Limited/Unobtainable: No Constitutional: Reports: other - pulled out NGT Objective Objective Last 24 Hour Vital Signs Date Time Temp Pulse Resp B/P (MAP) Pulse Ox O2 Delivery O2 Flow Rate FiO2 09/28/18 08:00 97.8 77 19 120/69 (86) 98 09/28/18 04:00 90 09/28/18 04:00 97.6 74 19 115/66 (82) 97 09/28/18 00:00 76 09/28/18 00:00 97.9 73 17 99/57 (71) 98 09/27/18 21:00 Room Air 09/27/18 20:00 97.5 79 18 96/56 (69) 100 09/27/18 20:00 78 09/27/18 16:00 98.3 79 20 95/56 (69) 100 09/27/18 16:00 80 09/27/18 12:00 70 09/27/18 12:00 98.1 71 20 97/62 (74) 100 Intake and Output 09/27/18 09/28/18 19:00 07:00 Intake Total 350 ml 30 ml Output Total 250 ml 500 ml Balance 100 ml -470 ml Free Water 120 ml Tube Feeding 230 ml 30 ml Output Urine Total 250 ml 500 ml # Bowel Movements 3 Current Medications Medications (Trade) Dose Ordered Sig/Socrates Route PRN Reason Start Time Stop Time Status Last Admin Dose Admin Chlordiazepoxide (Librium) 25 mg BID@0900,1300 NG 09/28/18 09:00 10/05/18 08:59 Chlordiazepoxide (Librium) 50 mg BEDTIME ORAL 09/27/18 21:00 10/04/18 20:59 09/27/18 20:43 Dextrose/ Electrolytes 1,000 ml @ 50 mls/hr Q20H IV 09/26/18 15:53 10/26/18 15:52 09/28/18 09:43 Diazepam (Valium) 10 mg Q2H PRN ORAL For Anxiety 09/27/18 15:45 10/04/18 15:44 Divalproex Sodium (Depakote Sprinkles) 250 mg BID GT 09/26/18 00:30 10/26/18 00:29 09/27/18 18:02 Famotidine (Pepcid) 20 mg BID ORAL 09/26/18 18:00 10/26/18 17:59 09/27/18 18:02 Folic Acid (Folate) 2 mg DAILY NG 09/27/18 09:00 10/22/18 08:59 09/27/18 09:22 Lactulose (Cephulac) 20 gm THREE TIMES A DAY NG 09/27/18 09:00 10/26/18 12:59 09/27/18 18:02 Levetiracetam (Keppra) 500 mg Q12HR NG 09/25/18 23:15 10/24/18 20:59 09/27/18 20:43 Levothyroxine Sodium (Synthroid) 112 mcg DAILY@0630 NG 09/27/18 06:30 10/27/18 06:29 09/28/18 06:02 Ondansetron HCl (Zofran) 4 mg Q6H PRN IVP Nausea & Vomiting 09/21/18 20:30 10/21/18 20:29 Potassium Chloride (K-Dur) 40 meq DAILY ORAL 09/23/18 09:00 10/23/18 08:59 09/27/18 09:23 Rifaximin (Xifaxan) 550 mg EVERY 12 HOURS NG 09/26/18 21:00 10/03/18 20:59 09/27/18 20:43 Thiamine HCl (Vitamin B1) 100 mg DAILY NG 09/27/18 09:00 10/25/18 08:59 09/27/18 09:22 Laboratory Tests 09/28/18 06:36: White Blood Count 8.0, Red Blood Count 4.24L, Hemoglobin 10.6L, Hematocrit 34.2L , Mean Corpuscular Volume 81, Mean Corpuscular Hemoglobin 25.0L, Mean Corpuscular Hemoglobin Concent 31.0L, Red Cell Distribution Width 24.5H, Platelet Count 245, Mean Platelet Volume 10.3H, Neutrophils (%) (Auto) 69.5, Lymphocytes (%) (Auto) 14.6L, Monocytes (%) (Auto) 11.6H, Eosinophils (%) (Auto ) 2.9, Basophils (%) (Auto) 1.5, Sodium Level 140, Potassium Level 3.9, Chloride Level 107, Carbon Dioxide Level 24, Anion Gap 9, Blood Urea Nitrogen 2L , Creatinine 0.8, Estimat Glomerular Filtration Rate > 60, Glucose Level 99, Calcium Level 9.0 Height (Feet): 5 Height (Inches): 7.00 Weight (Pounds): 150 General Appearance: no apparent distress Cardiovascular: normal rate Respiratory/Chest: lungs clear Abdomen: soft Objective no change Mode Krishnan MD September 28, 2018 11:47
[2018-09-28 12:00] VITALS: BP 118/64
--- NOTE | 2018-09-28 12:06 | Infectious Diseases Prog Note ---
Assessment/Plan Assessment/Plan IMPRESSION: Acute pancreatitis, likely alcoholic anemia thrombocytopenia leukocytosis resolved alcohol withdrawal, hyponatremia Fatty liver/ cirrhosis R kidney angiomyolipoma. RECOMMENDATION: Continue Rifaximin & Lactulose Subjective ROS Limited/Unobtainable: Yes Gastrointestinal/Abdominal: Reports: other - failed swallowing study Allergies: Coded Allergies: No Known Allergies (Unverified , 09/21/18) Objective Vital Signs Last 24 Hour Vital Signs Date Time Temp Pulse Resp B/P (MAP) Pulse Ox O2 Delivery O2 Flow Rate FiO2 09/28/18 09:00 Room Air 09/28/18 08:00 97.8 77 19 120/69 (86) 98 09/28/18 04:00 90 09/28/18 04:00 97.6 74 19 115/66 (82) 97 09/28/18 00:00 76 09/28/18 00:00 97.9 73 17 99/57 (71) 98 09/27/18 21:00 Room Air 09/27/18 20:00 97.5 79 18 96/56 (69) 100 09/27/18 20:00 78 09/27/18 16:00 98.3 79 20 95/56 (69) 100 09/27/18 16:00 80 Height (Feet): 5 Height (Inches): 7.00 Weight (Pounds): 150 General Appearance: no acute distress HEENT: mucous membranes moist Respiratory/Chest: lungs clear Cardiovascular: normal rate Abdomen: soft, non tender Extremities: no edema Neurologic/Psychiatric: other - sleeping Laboratory Tests Test 09/28/18 06:36 White Blood Count 8.0 K/UL (4.8-10.8) Red Blood Count 4.24 M/UL (4.70-6.10) L Hemoglobin 10.6 G/DL (14.2-18.0) L Hematocrit 34.2 % (42.0-52.0) L Mean Corpuscular Volume 81 FL (80-99) Mean Corpuscular Hemoglobin 25.0 PG (27.0-31.0) L Mean Corpuscular Hemoglobin Concent 31.0 G/DL (32.0-36.0) L Red Cell Distribution Width 24.5 % (11.6-14.8) H Platelet Count 245 K/UL (150-450) Mean Platelet Volume 10.3 FL (6.5-10.1) H Neutrophils (%) (Auto) 69.5 % (45.0-75.0) Lymphocytes (%) (Auto) 14.6 % (20.0-45.0) L Monocytes (%) (Auto) 11.6 % (1.0-10.0) H Eosinophils (%) (Auto) 2.9 % (0.0-3.0) Basophils (%) (Auto) 1.5 % (0.0-2.0) Sodium Level 140 MMOL/L (136-145) Potassium Level 3.9 MMOL/L (3.5-5.1) Chloride Level 107 MMOL/L (98-107) Carbon Dioxide Level 24 MMOL/L (21-32) Anion Gap 9 mmol/L (5-15) Blood Urea Nitrogen 2 mg/dL (7-18) L Creatinine 0.8 MG/DL (0.55-1.30) Estimat Glomerular Filtration Rate > 60 mL/min (>60) Glucose Level 99 MG/DL (74-106) Calcium Level 9.0 MG/DL (8.5-10.1) Current Medications Medications (Trade) Dose Ordered Sig/Socrates Route PRN Reason Start Time Stop Time Status Last Admin Dose Admin Chlordiazepoxide (Librium) 25 mg BID@0900,1300 NG 09/28/18 09:00 10/05/18 08:59 Chlordiazepoxide (Librium) 50 mg BEDTIME ORAL 09/27/18 21:00 10/04/18 20:59 09/27/18 20:43 Dextrose/ Electrolytes 1,000 ml @ 50 mls/hr Q20H IV 09/26/18 15:53 10/26/18 15:52 09/28/18 09:43 Diazepam (Valium) 10 mg Q2H PRN ORAL For Anxiety 09/27/18 15:45 10/04/18 15:44 Divalproex Sodium (Depakote Sprinkles) 250 mg BID GT 09/26/18 00:30 10/26/18 00:29 09/27/18 18:02 Famotidine (Pepcid) 20 mg BID ORAL 09/26/18 18:00 10/26/18 17:59 09/27/18 18:02 Folic Acid (Folate) 2 mg DAILY NG 09/27/18 09:00 10/22/18 08:59 09/27/18 09:22 Lactulose (Cephulac) 20 gm THREE TIMES A DAY NG 09/27/18 09:00 10/26/18 12:59 09/27/18 18:02 Levetiracetam (Keppra) 500 mg Q12HR NG 09/25/18 23:15 10/24/18 20:59 09/27/18 20:43 Levothyroxine Sodium (Synthroid) 112 mcg DAILY@0630 NG 09/27/18 06:30 10/27/18 06:29 09/28/18 06:02 Ondansetron HCl (Zofran) 4 mg Q6H PRN IVP Nausea & Vomiting 09/21/18 20:30 10/21/18 20:29 Potassium Chloride (K-Dur) 40 meq DAILY ORAL 09/23/18 09:00 10/23/18 08:59 09/27/18 09:23 Rifaximin (Xifaxan) 550 mg EVERY 12 HOURS NG 09/26/18 21:00 10/03/18 20:59 09/27/18 20:43 Thiamine HCl (Vitamin B1) 100 mg DAILY NG 09/27/18 09:00 10/25/18 08:59 09/27/18 09:22 Tyrell Yee MD September 28, 2018 12:06
--- NOTE | 2018-09-28 12:57 | General Progress Note ---
Assessment/Plan Status: unchanged Assessment/Plan: Assessment and Recs: # Pancytopenia -- multiple etiologies could be related to underlying liver disease, in this case is very likely related to etoh ABUse and myelosuppression of the bone marrow, very common to alcoholics --> peripheral smear has been ordered and does not show significant abnormalities --> Medications have been reviewed --> Continue to monitor for improvement, trend cbc --> Hep panel and HIV have been reviewed and are negative --> US abd has been reviewed, fatty infiltration is noted --> consider other causes, infections that could contribute --> Reverse isolation if ANC is <2000 --> Give neupogen if ANC <1000 --> Transfuse if hgb <7, with 1 unit prbc # Anemia of iron deficiency, ferritin is <50 --> As per gi eval as needed --> No evidence of hemolysis is noted, peripheral smear has been reviewed. --> Hgb goal >7. Transfuse prn. --> Medications have been reviewed --> iv iron x 5 days started # Alcohol withdrawal p/w pancreatitis --> Monitor for alcohol withdrawal seizure --> currently w/o seizures # Impending delirium tremens --> recommend cessation etoh # Hyponatremia --> trend Na as needed # Pancreatitis # HYperbilirubinemia as per above The timing of this note does not necessarily reflect the time of the patient was seen. Greatly appreciate consultation! Subjective Constitutional: Denies: no symptoms, chills, diaphoresis, fever, malaise, weakness, other HEENT: Denies: no symptoms, eye pain, blurred vision, tearing, double vision, ear pain, ear discharge, nose pain, nose congestion, throat pain, throat swelling, mouth pain, mouth swelling, other Cardiovascular: Denies: no symptoms, chest pain, edema, irregular heart rate, lightheadedness, palpitations, syncope, other Respiratory: Denies: no symptoms, cough, orthopnea, shortness of breath, SOB with excertion, SOB at rest, sputum, stridor, wheezing, other Genitourinary: Denies: no symptoms, burning, discharge, frequency, flank pain, hematuria, incontinence, pain, urgency, other Neurologic/Psychiatric: Denies: no symptoms, anxiety, depressed, emotional problems, headache, numbness, paresthesia, pre-existing deficit, seizure, tingling, tremors, weakness, other Endocrine: Denies: no symptoms, excessive sweating, flushing, intolerance to cold, intolerance to heat, increased hunger, increased thirst, increased urine, unexplained weight gain, unexplained weight loss, other Hematologic/Lymphatic: Denies: no symptoms, anemia, easy bleeding, easy bruising, other Allergies: Coded Allergies: No Known Allergies (Unverified , 09/21/18) Subjective 09/23: no events noted, less altered, cbc reviewed 09/24: labs reviewed, no events, no f/c 09/26: off abx, agitated and ng was pulled out 09/27: ngt is in place, no fevers or chills noted, venofer continued 09/28: ngt has been pulled, seen by gi, no fevers or chills noted Objective Last 24 Hour Vital Signs Date Time Temp Pulse Resp B/P (MAP) Pulse Ox O2 Delivery O2 Flow Rate FiO2 09/28/18 09:00 Room Air 09/28/18 08:00 97.8 77 19 120/69 (86) 98 09/28/18 08:00 69 09/28/18 04:00 90 09/28/18 04:00 97.6 74 19 115/66 (82) 97 09/28/18 00:00 76 09/28/18 00:00 97.9 73 17 99/57 (71) 98 09/27/18 21:00 Room Air 09/27/18 20:00 97.5 79 18 96/56 (69) 100 09/27/18 20:00 78 09/27/18 16:00 98.3 79 20 95/56 (69) 100 09/27/18 16:00 80 Intake and Output 09/27/18 09/28/18 19:00 07:00 Intake Total 350 ml 30 ml Output Total 250 ml 500 ml Balance 100 ml -470 ml Free Water 120 ml Tube Feeding 230 ml 30 ml Output Urine Total 250 ml 500 ml # Bowel Movements 3 Laboratory Tests 09/28/18 06:36: White Blood Count 8.0, Red Blood Count 4.24L, Hemoglobin 10.6L, Hematocrit 34.2L , Mean Corpuscular Volume 81, Mean Corpuscular Hemoglobin 25.0L, Mean Corpuscular Hemoglobin Concent 31.0L, Red Cell Distribution Width 24.5H, Platelet Count 245, Mean Platelet Volume 10.3H, Neutrophils (%) (Auto) 69.5, Lymphocytes (%) (Auto) 14.6L, Monocytes (%) (Auto) 11.6H, Eosinophils (%) (Auto ) 2.9, Basophils (%) (Auto) 1.5, Sodium Level 140, Potassium Level 3.9, Chloride Level 107, Carbon Dioxide Level 24, Anion Gap 9, Blood Urea Nitrogen 2L , Creatinine 0.8, Estimat Glomerular Filtration Rate > 60, Glucose Level 99, Calcium Level 9.0 Height (Feet): 5 Height (Inches): 7.00 Weight (Pounds): 150 Objective Sp02 EP: reviewed, normal General Appearance: well appearing, nad, GCS 15 Head: normocephalic Eyes: bilateral eye normal inspection, bilateral eye PERRL, bilateral eye EOMI ENT: moist mucus membranes Neck: supple Respiratory: lungs clear, normal breath sounds Cardiovascular: regular rate, rhythm, 2+ radial (R) Gastrointestinal: normal inspection, normal bowel sounds, non tender, no mass, nd Musculoskeletal: back normal, gait/station normal, normal range of motion Neurologic: alert, oriented x3, conveyor system dispatcher III-XII nml as tested Psychiatric: anxious Skin: normal inspection, warm/dry Avery Bell MD September 28, 2018 12:57
--- NOTE | 2018-09-28 14:34 | Neurology Progress Note ---
Interim History Interim History ROS Limited/Unobtainable: Yes Complaints: AMS/ Weakness Events: Remains intermittently confused but improving Review of Systems All Systems: reviewed and negative except above Objective Physical Exam Last Vital Signs Date Time Temp Pulse Resp B/P (MAP) Pulse Ox O2 Delivery O2 Flow Rate FiO2 09/28/18 12:00 98.0 79 19 118/64 (82) 97 09/28/18 09:00 Room Air 09/21/18 18:30 4.0 Laboratory Tests Test 09/28/18 06:36 White Blood Count 8.0 K/UL (4.8-10.8) Red Blood Count 4.24 M/UL (4.70-6.10) L Hemoglobin 10.6 G/DL (14.2-18.0) L Hematocrit 34.2 % (42.0-52.0) L Mean Corpuscular Volume 81 FL (80-99) Mean Corpuscular Hemoglobin 25.0 PG (27.0-31.0) L Mean Corpuscular Hemoglobin Concent 31.0 G/DL (32.0-36.0) L Red Cell Distribution Width 24.5 % (11.6-14.8) H Platelet Count 245 K/UL (150-450) Mean Platelet Volume 10.3 FL (6.5-10.1) H Neutrophils (%) (Auto) 69.5 % (45.0-75.0) Lymphocytes (%) (Auto) 14.6 % (20.0-45.0) L Monocytes (%) (Auto) 11.6 % (1.0-10.0) H Eosinophils (%) (Auto) 2.9 % (0.0-3.0) Basophils (%) (Auto) 1.5 % (0.0-2.0) Sodium Level 140 MMOL/L (136-145) Potassium Level 3.9 MMOL/L (3.5-5.1) Chloride Level 107 MMOL/L (98-107) Carbon Dioxide Level 24 MMOL/L (21-32) Anion Gap 9 mmol/L (5-15) Blood Urea Nitrogen 2 mg/dL (7-18) L Creatinine 0.8 MG/DL (0.55-1.30) Estimat Glomerular Filtration Rate > 60 mL/min (>60) Glucose Level 99 MG/DL (74-106) Calcium Level 9.0 MG/DL (8.5-10.1) General: well developed, well nourished Head: normocophalic Neck: no rigidity EENT: benign Neurologic Exam Mental Status: awake, alert, other - Currently waxing and waning in consciousness and orientation Language: other - Primarily Ecuadorean speaking and very softly spoken Cranial Nerve II: fundus normal, visual restrepo Cranial Nerves III, IV, : PERRLA, EOMI Cranial Nerve V: normal facial sensations Cranial Nerve VII: no facial asymmetry Cranial Nerve VIII: normal hearing Cranial Nerve IX: normal palate elevation Cranial Nerve X: no voice hoarseness Cranial Nerve XI: SCM symmetric Cranial Nerve XII: tongue midline Motor System: normal muscle tone, strength 5/5 Sensory: normal pinprick, normal light touch Coordination: normal finger to nose bilaterally, normal heel to singh bilaterally Deep Tendon Reflexes: 2+ bicep (L), 2+ bicep (R), 2+ tricep (L), 2+ tricep (R) , 2+ brachioradialis (L), 2+ brachioradialis (R), 2+ knee (L), 2+ knee (R), 2+ ankle (L), 2+ ankle (R) Reflexes: flexor plantar (L), flexor plantar (R); extensor plantar (L), extensor plantar (R) Impression/Recommendations Problems: (1) Hyponatremia (2) Alcohol withdrawal seizure (3) Alcoholic hepatitis (4) Alcoholic pancreatitis (5) Alcohol withdrawal (6) Acute alcohol intoxication delirium with moderate or severe use disorder (7) AMS (8) Acute hypoactive alcohol intoxication delirium without use disorder (9) Hypothyroidism Status: unchanged Recommendations Somewhat improved but still hypoactive - Consider more daytime stim with PT Continue observation Recs: Consider adding Lactulose for improved hepatobiliary excretion Correct Thyroid as per PM/ Endo recs - Levothyroxine supplementation at 1.6mcg/ kg- Started Q 4 Hour neuro obs- Maintain sleep hygiene by making room dark and quiet in the evening. Frequently reorient the patient, if confused Encourage family/ friend visits PT/OT OOB in chair Discourage/ Avoid / Minimize use of benzodiazapenes , anticholinergics, or opioid narcotics. Soraya Donis N.P. September 28, 2018 14:34
--- NOTE | 2018-09-28 14:39 | NUR ---
NURSE NOTES: Reinserted NG-tube and patient is trying to pull it out. Pt also pulled out his IV. Received new order for restraints. Order noted and carried out.
--- NOTE | 2018-09-28 15:08 | Diagnostic Imaging Report ---
Indication: NG tube Comparison: None Single view of the abdomen obtained Findings: The NG tube is curled in the esophagus and requires repositioning. The tube should be pulled out and reinserted. IMPRESSION: NG tube curled within the esophagus
[2018-09-28 16:00] VITALS: BP 100/65
--- NOTE | 2018-09-28 17:03 | NUR ---
NURSE NOTES: Attempted NG tube insertion multiple times with multiple different nurses. Gave patient thickened water and he seems to be able to swallow fine. Going to attempt to give 1600 meds orally. Left message with GANGA Boyle to make him aware.
--- NOTE | 2018-09-28 19:21 | NUR ---
HAND-OFF: Report given to Addy RN. Plan of care endorsed. Pt in stable condition.
--- NOTE | 2018-09-28 19:50 | NUR ---
NURSE NOTES: Received patient from Julianna Best RN. Patient in bed, awake. Bed alarm on, bed in low position, locked, call light within reach. On room air, no s/s of respiratory distress.
[2018-09-28 20:00] VITALS: BP 113/66
[2018-09-28] MEDS: chlordiazePOXIDE 25mg Cap ORAL SCH (20:13)
--- NOTE | 2018-09-28 20:33 | General Progress Note ---
Assessment/Plan Problem List: (1) Pancreatitis ICD Codes: K85.90 - Acute pancreatitis without necrosis or infection, unspecified SNOMED: 21018271 Qualifiers: Qualified Codes: K85.20 - Alcohol induced acute pancreatitis without necrosis or infection (2) Thrombocytopenia ICD Codes: D69.6 - Thrombocytopenia, unspecified SNOMED: 723546564 (3) Hyponatremia ICD Codes: E87.1 - Hypo-osmolality and hyponatremia SNOMED: 22427189 (4) Alcohol withdrawal seizure ICD Codes: F10.239 - Alcohol dependence with withdrawal, unspecified; R56.9 - Unspecified convulsions SNOMED: 777696360 Qualifiers: Qualified Codes: F10.239 - Alcohol dependence with withdrawal, unspecified; R56.9 - Unspecified convulsions (5) Alcohol withdrawal ICD Codes: F10.239 - Alcohol dependence with withdrawal, unspecified SNOMED: 331094295 Qualifiers: Qualified Codes: F10.239 - Alcohol dependence with withdrawal, unspecified (6) Anemia ICD Codes: D64.9 - Anemia, unspecified SNOMED: 293919058 (7) Alcoholic hepatitis ICD Codes: K70.10 - Alcoholic hepatitis without ascites SNOMED: 464262229 (8) Alcoholic pancreatitis ICD Codes: K85.20 - Alcohol induced acute pancreatitis without necrosis or infection SNOMED: 581957520 (9) Alcohol dependence ICD Codes: F10.20 - Alcohol dependence, uncomplicated SNOMED: 67480844 Status: progressing, unchanged Assessment/Plan: still confused vitals stable elevated lft is improving failed swallow study peg per dr thao etoh pancreatitis improving Subjective ROS Limited/Unobtainable: Yes Allergies: Coded Allergies: No Known Allergies (Unverified , 09/21/18) Objective Last 24 Hour Vital Signs Date Time Temp Pulse Resp B/P (MAP) Pulse Ox O2 Delivery O2 Flow Rate FiO2 09/28/18 20:20 Room Air 09/28/18 16:00 97.1 84 20 100/65 (77) 96 09/28/18 12:00 98.0 79 19 118/64 (82) 97 09/28/18 09:00 Room Air 09/28/18 08:00 97.8 77 19 120/69 (86) 98 09/28/18 08:00 69 09/28/18 04:00 90 09/28/18 04:00 97.6 74 19 115/66 (82) 97 09/28/18 00:00 76 09/28/18 00:00 97.9 73 17 99/57 (71) 98 09/27/18 21:00 Room Air Intake and Output 09/27/18 09/28/18 19:00 07:00 Intake Total 350 ml 30 ml Output Total 250 ml 500 ml Balance 100 ml -470 ml Free Water 120 ml Tube Feeding 230 ml 30 ml Output Urine Total 250 ml 500 ml # Bowel Movements 3 Laboratory Tests 09/28/18 06:36: White Blood Count 8.0, Red Blood Count 4.24L, Hemoglobin 10.6L, Hematocrit 34.2L , Mean Corpuscular Volume 81, Mean Corpuscular Hemoglobin 25.0L, Mean Corpuscular Hemoglobin Concent 31.0L, Red Cell Distribution Width 24.5H, Platelet Count 245, Mean Platelet Volume 10.3H, Neutrophils (%) (Auto) 69.5, Lymphocytes (%) (Auto) 14.6L, Monocytes (%) (Auto) 11.6H, Eosinophils (%) (Auto ) 2.9, Basophils (%) (Auto) 1.5, Sodium Level 140, Potassium Level 3.9, Chloride Level 107, Carbon Dioxide Level 24, Anion Gap 9, Blood Urea Nitrogen 2L , Creatinine 0.8, Estimat Glomerular Filtration Rate > 60, Glucose Level 99, Calcium Level 9.0 Height (Feet): 5 Height (Inches): 7.00 Weight (Pounds): 150 Cardiovascular: normal peripheral pulses Respiratory/Chest: lungs clear Nitesh Melvin MD September 28, 2018 20:33
--- NOTE | 2018-09-28 21:20 | NUR ---
NURSE NOTES: Report brought up from Tele in hospital bed to room 314-2. Report taken GWENDOLYN Acosta. Patient is asleep but reponds to his name. A&Ox3, in soft restraints per MD order. Circulation bilateral hands good. Patient attempts to pull at lines and IVs. He asked to get taken out of restraints but does not understand that he cannot pull out his IV. IV site c/d/i and patent, running D5NS+20KCl at 50mls/hr. No signs of distress on room air. No complaints of pain. No skin issues present. Consent form signed for procedure 09/29. RN went over belongings list at bedside. Bed in lowest position, call light within reach.
--- NOTE | 2018-09-28 21:24 | NUR ---
TRANSFER TO FLOOR: Report given to Yuriy SNOW. Patient was transferred 3E med surg from 2E telemetry without incident. No signs of acute distress noted. Patient taken off tele box, tolerated well. Belongings checked with receiving RN. Bed in low position, brakes on, side rails up x3, call light within reach.
[2018-09-29] VITALS: BP 94/53
[2018-09-29 04:00] VITALS: BP 108/59
--- NOTE | 2018-09-29 04:00 | NUR ---
NURSE NOTES: Patient wanted to get up and use the restroom. RN removed restraints and assisted patient. Restraints remain at bedside, patient has been ok without use. Continue to monitor, order still in place for soft restraints.
[2018-09-29 05:53] LABS: BASOPHILS % (AUTO) 2.9 % (0.0-2.0); EOSINOPHILS % (AUTO) 2.9 % (0.0-3.0); HEMATOCRIT 32.5 % (42.0-52.0); MEAN CORPUSCULAR VOLUME 81 FL (80-99); MONOCYTES % (AUTO) 12.1 % (1.0-10.0); PLATELET COUNT 230 K/UL (150-450); RED BLOOD COUNT 4.01 M/UL (4.70-6.10); RED CELL DISTRIBUTION WIDTH 24.9 % (11.6-14.8); WHITE BLOOD COUNT 6.6 K/UL (4.8-10.8)
[2018-09-29 06:01] LABS: INR 1.1 (0.9-1.1)
[2018-09-29 06:16] LABS: AMMONIA 45 umol/L (11-32); ANION GAP 8 mmol/L (5-15); BLOOD UREA NITROGEN 3 mg/dL (7-18); CALCIUM 8.5 MG/DL (8.5-10.1); CARBON DIOXIDE 26 MMOL/L (21-32); CHLORIDE 104 MMOL/L (98-107); CHOLESTEROL 132 MG/DL (< 200); CREATININE 0.8 MG/DL (0.55-1.30); HDL CHOLESTEROL 18 MG/DL (40-60); POTASSIUM 3.6 MMOL/L (3.5-5.1); SODIUM 138 MMOL/L (136-145); TRIGLYCERIDES 111 MG/DL (30-150)
[2018-09-29 06:21] LABS: ALANINE AMINOTRANSFERASE 59 U/L (12-78); ALBUMIN 2.8 G/DL (3.4-5.0); ALKALINE PHOSPHATASE 54 U/L (46-116); ASPARTATE AMINO TRANSFERASE 77 U/L (15-37); BILIRUBIN,DIRECT 0.4 MG/DL (0.0-0.3); BILIRUBIN,TOTAL 1.1 MG/DL (0.2-1.0); GAMMA GLUTAMYL TRANSPEPTIDASE 341 U/L (5-85); PHOSPHORUS 3.3 MG/DL (2.5-4.9)
--- NOTE | 2018-09-29 07:26 | NUR ---
HAND-OFF: Report given to GWENDOLYN Kwok. patient is asleep in bed. Restraints currently removed, VS stable.
[2018-09-29 08:00] VITALS: BP 117/73
--- NOTE | 2018-09-29 08:00 | NUR ---
NURSE NOTES: Received report from Yuriy SNOW, pt a/a/o x3 laying in bed with no signs of distress or other issues at this time. pt has an IV on the left DICKEY gauge#20 running D5 NS+40mEq@50ml/hr. pt is NPO for EGD with possible Biopsy and possible PEG placement. call light within reach, bed in lowest position. I will f/u as needed.
--- NOTE | 2018-09-29 09:00 | NUR ---
NURSE NOTES: RN called Dr. Camejo to confirm if pt can have medications by mouth since pt is schedule for EGD & PEG today. Per MD ok to give meds prior procedure. I will f/u as needed.
[2018-09-29] MEDS: chlordiazePOXIDE 25mg Cap NG SCH ×2 (09:23→14:16)
[2018-09-29] MEDS: Depakote 125mg Sprinkles GT SCH ×2 (09:24→17:50)
[2018-09-29] MEDS: Thiamine 100mg tab NG SCH (09:25)
[2018-09-29] MEDS: Lactulose 20gm/30ml UDC NG SCH ×3 (09:25→17:51)
--- NOTE | 2018-09-29 09:54 | NUR ---
Social Service Note SW spoke with patient's mother Krysten Lau [phone] and Lisa Changdonado [phone] regarding treatment plan of care. Patient was residing with his 74 year old mother prior to admission. Mother has medical ailments which would not be possible of caring for patient at home if he required medical intervention. SW address possible barriers with truck terminal manager placement. Thou family consented to G-tube family believes patient may pull it out due to past behaviors of resistants to care. SW discussed with [facility] rangel recommended. Family will also discuss with patient's children with live in [place] the ability to assist with care. SW discussed with CM. Will continue to monitor and assist.
--- NOTE | 2018-09-29 10:48 | GI Progress Note ---
Assessment/Plan Problems: (1) Alcoholic pancreatitis ICD Codes: K85.20 - Alcohol induced acute pancreatitis without necrosis or infection SNOMED: 545850040 (2) Alcoholic hepatitis ICD Codes: K70.10 - Alcoholic hepatitis without ascites SNOMED: 968525539 (3) Anemia ICD Codes: D64.9 - Anemia, unspecified SNOMED: 911248167 (4) Alcohol withdrawal ICD Codes: F10.239 - Alcohol dependence with withdrawal, unspecified SNOMED: 683924480 Qualifiers: Qualified Codes: F10.239 - Alcohol dependence with withdrawal, unspecified (5) Pancreatitis ICD Codes: K85.90 - Acute pancreatitis without necrosis or infection, unspecified SNOMED: 29337653 Qualifiers: Qualified Codes: K85.20 - Alcohol induced acute pancreatitis without necrosis or infection (6) Thrombocytopenia ICD Codes: D69.6 - Thrombocytopenia, unspecified SNOMED: 360040328 (7) Hyponatremia ICD Codes: E87.1 - Hypo-osmolality and hyponatremia SNOMED: 13815922 (8) Alcoholic delirium ICD Codes: F10.231 - Alcohol dependence with withdrawal delirium SNOMED: 8345643 Status: doing well, stable Status Narrative Discussed with Dr. Wright Assessment/Plan Discriminant function calculated, no need for glucocorticoid therapy. Patient more alert and oriented. PEG canceled, patient is more alert and oriented today ST to advance diet to pured diet, still has mild dysphagia in which he would need a video swallow study and outpatient follow-up Folate OB stool r/o GI bleed monitor H&H, prn transfusions bowel regime ppi fu labs avoid alcohol trend LFTs lactulose and Xifaxan okay for DC per GI standpoint The patient was seen and examined at bedside and all new and available data was reviewed in the patients chart. I agree with the above findings, impression and plan. (Patient seen earlier today. Signature stamp does not reflect patient encounter time.). - Daniel Wright MD Subjective Gastrointestinal/Abdominal: Reports: no symptoms Objective Last 24 Hour Vital Signs Date Time Temp Pulse Resp B/P (MAP) Pulse Ox O2 Delivery O2 Flow Rate FiO2 09/29/18 08:00 98.0 80 17 117/73 (88) 96 09/29/18 04:00 97.4 68 18 108/59 (75) 96 09/29/18 00:00 98.2 68 18 94/53 (67) 98 09/28/18 22:57 Room Air 09/28/18 20:20 Room Air 09/28/18 20:00 98.4 84 20 113/66 (82) 98 09/28/18 16:00 97.1 84 20 100/65 (77) 96 09/28/18 12:00 98.0 79 19 118/64 (82) 97 Intake and Output 09/28/18 09/29/18 18:59 06:59 Intake Total 170 ml 115 ml Balance 170 ml 115 ml Intake Oral 50 ml IV Total 120 ml 115 ml # Voids 3 2 Laboratory Tests Test 09/29/18 05:38 White Blood Count 6.6 K/UL (4.8-10.8) Red Blood Count 4.01 M/UL (4.70-6.10) L Hemoglobin 10.0 G/DL (14.2-18.0) L Hematocrit 32.5 % (42.0-52.0) L Mean Corpuscular Volume 81 FL (80-99) Mean Corpuscular Hemoglobin 24.9 PG (27.0-31.0) L Mean Corpuscular Hemoglobin Concent 30.6 G/DL (32.0-36.0) L Red Cell Distribution Width 24.9 % (11.6-14.8) H Platelet Count 230 K/UL (150-450) Mean Platelet Volume 10.3 FL (6.5-10.1) H Neutrophils (%) (Auto) 65.0 % (45.0-75.0) Lymphocytes (%) (Auto) 17.0 % (20.0-45.0) L Monocytes (%) (Auto) 12.1 % (1.0-10.0) H Eosinophils (%) (Auto) 2.9 % (0.0-3.0) Basophils (%) (Auto) 2.9 % (0.0-2.0) H Prothrombin Time 11.9 SEC (9.30-11.50) H Prothromb Time International Ratio 1.1 (0.9-1.1) Activated Partial Thromboplast Time 28 SEC (23-33) Sodium Level 138 MMOL/L (136-145) Potassium Level 3.6 MMOL/L (3.5-5.1) Chloride Level 104 MMOL/L (98-107) Carbon Dioxide Level 26 MMOL/L (21-32) Anion Gap 8 mmol/L (5-15) Blood Urea Nitrogen 3 mg/dL (7-18) L Creatinine 0.8 MG/DL (0.55-1.30) Estimat Glomerular Filtration Rate > 60 mL/min (>60) Glucose Level 106 MG/DL (74-106) Uric Acid 2.7 MG/DL (2.6-7.2) Calcium Level 8.5 MG/DL (8.5-10.1) Phosphorus Level 3.3 MG/DL (2.5-4.9) Magnesium Level 1.7 MG/DL (1.8-2.4) L Total Bilirubin 1.1 MG/DL (0.2-1.0) H Direct Bilirubin 0.4 MG/DL (0.0-0.3) H Gamma Glutamyl Transpeptidase 341 U/L (5-85) H Aspartate Amino Transf (AST/SGOT) 77 U/L (15-37) H Alanine Aminotransferase (ALT/SGPT) 59 U/L (12-78) Alkaline Phosphatase 54 U/L (46-116) Ammonia 45 umol/L (11-32) H Troponin I 0.017 ng/mL (0.000-0.056) C-Reactive Protein, Quantitative 2.2 mg/dL (0.00-0.90) H Pro-B-Type Natriuretic Peptide 93 pg/mL (0-125) Total Protein 6.6 G/DL (6.4-8.2) Albumin 2.8 G/DL (3.4-5.0) L Triglycerides Level 111 MG/DL (30-150) Cholesterol Level 132 MG/DL (< 200) LDL Cholesterol 100 mg/dL (<100) HDL Cholesterol 18 MG/DL (40-60) L Cholesterol/HDL Ratio 7.3 (3.3-4.4) H Lipase 159 U/L (73-393) Thyroid Stimulating Hormone (TSH) 1.956 uiU/mL (0.358-3.740) Height (Feet): 5 Height (Inches): 7.00 Weight (Pounds): 142 General Appearance: WD/WN, no apparent distress, alert Cardiovascular: normal rate Respiratory/Chest: normal breath sounds, no respiratory distress Abdominal Exam: normal bowel sounds, non tender, soft Extremities: normal range of motion, non-tender Objective Patient drastically more alert and oriented today Susan Burnette NP September 29, 2018 10:48
--- NOTE | 2018-09-29 11:00 | NUR ---
NURSE NOTES: Stella Speech therapist evaluated pt at bed side and stated that pt will benefit for video swallow eval. she state that she will schedule for today around 13:00. I will f/u as needed.
--- NOTE | 2018-09-29 11:07 | NUR ---
SWALLOW/SPEECH THERAPY NOTE: SUBJECTIVE: ALERT AND ABLE TO EXPRESS SELF IN [place] (FROM [place]) ASSESSMENT/TREATMENT: SWALLOW RE-EVALUATION AT BEDSIDE - PER RN, PATIENT DOES NOT HAVE NGT. ALTHOUGH PEG SCHEDULED FOR TODAY WILL HOLD FOR NOW. PER RN, PATIENT HAD PHARYNGEAL RESIDUE AFTER SWALLOWING CRUSHED PILLS WITH PUREED BUT EVENTUALLY CLEARED BOLUS. PER PATIENT, HE NEEDS LIQUIDS TO CLEAR THROAT RESIDUE (NEW PROBLEM, DENIES PRIOR DYSPHAGIA). PATIENT IS MORE RECEPTIVE TO PO INTAKE SINCE HE SAID THE PAIN ON THE RIGHT SIDE OF HIS THROAT IS DECREASED. PATIENT HAS NOT EATEN SINCE YESTERDAY AND STATES HE HAS NO APPETITE. TRIALS WITH [employer]GER PREPARER THIN LIQUIDS: CONSISTENT ANTERIOR ORAL SPILLAGE VIA CUP DUE TO POOR LIP CLOSURE. PATIENT GIVEN AAKASH SWALLOW 3 OZ WATER SEQUENTIAL PROTOCOL AND DID NOT PASS SINCE HE ONLY TOOK ONE SIP AT A TIME AND LEFT 1/2 OF THE AMOUNT (MAY RELATE TO COGNITIVE-BEHAVIORAL ISSUE) FAIR HYOLARYNGEAL EXCURSION AND NO OVERT S/ S OF ASPIRATION BUT LIKELY HAS SILENT ASPIRATION RISK. GROSSLY FUNCTIONAL WITH NECTAR THICK LIQUIDS SIPS VIA CUP (NO ORAL SPILLAGE NOR ORAL RESIDUE) W/O OVERT ASPIRATION MILD INCREASE IN ORAL PREP WITH PUREED TSP, TENDS TO CHEW FOR A FEW SECONDS BUT STATES HE GETS RESIDUE IN THROAT (POINTS BELOW LARYNX). CLEARS WITH SECOND SWALLOW. MILD-MOD INCREASE OF ORAL PREP WITH MASTICATED SOLID (1/2 CRACKER), STATES HE HAS TO CHEW 40 TIMES AND HAS SAME ISSUES WITH PHARYNGEAL/THROAT RESIDUE THAT HE NEEDED TO CLEAR WITH THIN LIQUID WASH. PATIENT ALSO HAD CRACKER LABIAL SENSORY DEFICITS WITH MILD CRACKER RESIDUE ON MIDDLE PART OF HIS LOWER LIP THAT HE DID NOT FEEL NOR LICK OFF. IMPRESSIONS PERSISTENT MILD-MODERATE OROPHARYNGEAL DYSPHAGIA WITH INCREASED ORAL PREP AND OROPHARYNGEAL TRANSIT TIMES (WITH BOTH SENSORY AND MOTOR DEFICITS) OF QUESTIONABLE ETIOLOGY. DECREASED PAIN WITH SWALLOWING (RIGHT SIDED PHARYNGEAL ODYNOPHAGIA) SPEECH STATUS: ALTHOUGH ABLE TO EXPRESS NEEDS, VERY POOR VERBAL INITIATION AND RECALL OF YEAR (1919/2018) AND NEW (RECENT MEMORY) INFORMATION. PLAN: COMPLETE MODIFIED BARIUM SWALLOW STUDY NOW THAT PATIENT IS MORE RECEPTIVE TO PO TO FURTHER ASSESS SWALLOW ANATOMY AND PHYSIOLOGY, R/O SILENT ASPIRATION, AND ATTEMPT TRIAL TX TECHNIQUES. INITIATE PUREED AND NECTAR THICK LIQUID DIET WITH POSTED ASP PREC FOR NOW SINCE PT NOT RECEPTIVE TO NGT UNTIL MBSS TODAY AT ONE. NEEDS HIGH STEPHAN SUP AND CALORIE COUNT AND MAY NEED APPETITE STIMULANT. HOLD OFF ON PEG FOR NOW. 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 F/UP WITH ST OP OR IN THE HOME FOR DYSPHAGIA AND COGNITIVE-LINGUISTIC DEFICITS. D/W ELEAZAR SYLVESTER KHOI GI NP, AND PATIENT (IN [place]). APPEARED TO HAVE AT LEAST A NO OVERT S/S OF ASPIRATION WITH THIN LIQUIDS Addendum: 09/29/18 at 1117 by SHANNAN DENTON SAGGER PREPARER INITIALLY SAID HE WAS NOT HUNGRY YET LATER WHEN ASKED HE SAID HE WANTED "TRAMAINE STEAK SANDWICH". Addendum: 09/29/18 at 1315 by SHANNAN DENTON SAGGER PREPARER ADDENDUM: UNABLE TO COMPLETE MODIFIED BARIUM SWALLOW STUDY TODAY DUE TO SCHEDULE CONFLICTS, CAN BE DONE OUTPATIENT IF D/C (DO NOT HOLD UP D/C FOR THIS STUDY AND CANNOT COMPLETE STUDY AT [facility] AT THIS TIME). PATIENT HAS NOT RECEIVED MEAL YET. RN TO RECORD INTAKE. PATIENT SAID HE HAD FRONT AND BACK HEAD PAIN (2) TOLD RN. PATIENT STATED THAT HE THOUGHT HE MAY HAVE FALLEN AND HIT HIS HEAD WHEN HE WAS DRINKING. TOLD RN AND MD.
[2018-09-29 12:00] VITALS: BP 99/67
--- NOTE | 2018-09-29 12:57 | Nephrology Progress Note ---
Assessment/Plan Problem List: (1) Hyponatremia (2) Pancreatitis (3) Alcohol withdrawal seizure (4) Anemia Assessment HypoNatremia Alcoholic liver disease and pancreatitis ETOH Withdraw Sz Lipase lowering Plan St eval Med surg transfer down on hydrate DC Inderal librium thiamin monitor lytes and lipase Keppra Folate gastric support Subjective ROS Limited/Unobtainable: No Constitutional: Reports: malaise Objective Objective Last 24 Hour Vital Signs Date Time Temp Pulse Resp B/P (MAP) Pulse Ox O2 Delivery O2 Flow Rate FiO2 09/29/18 08:00 98.0 80 17 117/73 (88) 96 09/29/18 04:00 97.4 68 18 108/59 (75) 96 09/29/18 00:00 98.2 68 18 94/53 (67) 98 09/28/18 22:57 Room Air 09/28/18 20:20 Room Air 09/28/18 20:00 98.4 84 20 113/66 (82) 98 09/28/18 16:00 97.1 84 20 100/65 (77) 96 Intake and Output 09/28/18 09/29/18 19:00 07:00 Intake Total 185 ml 100 ml Balance 185 ml 100 ml Intake Oral 50 ml IV Total 135 ml 100 ml # Voids 3 2 Laboratory Tests 09/29/18 05:38: White Blood Count 6.6, Red Blood Count 4.01L, Hemoglobin 10.0L, Hematocrit 32.5L , Mean Corpuscular Volume 81, Mean Corpuscular Hemoglobin 24.9L, Mean Corpuscular Hemoglobin Concent 30.6L, Red Cell Distribution Width 24.9H, Platelet Count 230, Mean Platelet Volume 10.3H, Neutrophils (%) (Auto) 65.0, Lymphocytes (%) (Auto) 17.0L, Monocytes (%) (Auto) 12.1H, Eosinophils (%) (Auto ) 2.9, Basophils (%) (Auto) 2.9H, Prothrombin Time 11.9H, Prothromb Time International Ratio 1.1, Activated Partial Thromboplast Time 28, Sodium Level 138, Potassium Level 3.6, Chloride Level 104, Carbon Dioxide Level 26, Anion Gap 8, Blood Urea Nitrogen 3L, Creatinine 0.8, Estimat Glomerular Filtration Rate > 60, Glucose Level 106, Uric Acid 2.7, Calcium Level 8.5, Phosphorus Level 3.3, Magnesium Level 1.7L, Total Bilirubin 1.1H, Direct Bilirubin 0.4H, Gamma Glutamyl Transpeptidase 341H, Aspartate Amino Transf (AST/SGOT) 77H, Alanine Aminotransferase (ALT/SGPT) 59, Alkaline Phosphatase 54, Ammonia 45H, Troponin I 0.017, C-Reactive Protein, Quantitative 2.2H, Pro-B-Type Natriuretic Peptide 93, Total Protein 6.6, Albumin 2.8L, Triglycerides Level 111, Cholesterol Level 132, LDL Cholesterol 100, HDL Cholesterol 18L, Cholesterol/ HDL Ratio 7.3H, Lipase 159, Thyroid Stimulating Hormone (TSH) 1.956 Height (Feet): 5 Height (Inches): 7.00 Weight (Pounds): 142 General Appearance: no apparent distress Objective no change Mode Krishnan MD September 29, 2018 12:57
--- NOTE | 2018-09-29 13:57 | Infectious Diseases Prog Note ---
Assessment/Plan Assessment/Plan IMPRESSION: Acute pancreatitis, likely alcoholic anemia thrombocytopenia leukocytosis resolved alcohol withdrawal, hyponatremia Fatty liver/ cirrhosis R kidney angiomyolipoma. RECOMMENDATION: Continue Rifaximin & Lactulose Subjective ROS Limited/Unobtainable: Yes Gastrointestinal/Abdominal: Reports: other - started on PO diet Allergies: Coded Allergies: No Known Allergies (Unverified , 09/21/18) Objective Vital Signs Last 24 Hour Vital Signs Date Time Temp Pulse Resp B/P (MAP) Pulse Ox O2 Delivery O2 Flow Rate FiO2 09/29/18 12:00 98.1 69 17 99/67 (78) 99 09/29/18 08:00 98.0 80 17 117/73 (88) 96 09/29/18 04:00 97.4 68 18 108/59 (75) 96 09/29/18 00:00 98.2 68 18 94/53 (67) 98 09/28/18 22:57 Room Air 09/28/18 20:20 Room Air 09/28/18 20:00 98.4 84 20 113/66 (82) 98 09/28/18 16:00 97.1 84 20 100/65 (77) 96 Height (Feet): 5 Height (Inches): 7.00 Weight (Pounds): 142 General Appearance: no acute distress HEENT: mucous membranes moist Respiratory/Chest: chest wall non-tender Cardiovascular: normal rate Abdomen: soft, non tender Extremities: no edema Neurologic/Psychiatric: alert, responsive Laboratory Tests Test 09/29/18 05:38 White Blood Count 6.6 K/UL (4.8-10.8) Red Blood Count 4.01 M/UL (4.70-6.10) L Hemoglobin 10.0 G/DL (14.2-18.0) L Hematocrit 32.5 % (42.0-52.0) L Mean Corpuscular Volume 81 FL (80-99) Mean Corpuscular Hemoglobin 24.9 PG (27.0-31.0) L Mean Corpuscular Hemoglobin Concent 30.6 G/DL (32.0-36.0) L Red Cell Distribution Width 24.9 % (11.6-14.8) H Platelet Count 230 K/UL (150-450) Mean Platelet Volume 10.3 FL (6.5-10.1) H Neutrophils (%) (Auto) 65.0 % (45.0-75.0) Lymphocytes (%) (Auto) 17.0 % (20.0-45.0) L Monocytes (%) (Auto) 12.1 % (1.0-10.0) H Eosinophils (%) (Auto) 2.9 % (0.0-3.0) Basophils (%) (Auto) 2.9 % (0.0-2.0) H Prothrombin Time 11.9 SEC (9.30-11.50) H Prothromb Time International Ratio 1.1 (0.9-1.1) Activated Partial Thromboplast Time 28 SEC (23-33) Sodium Level 138 MMOL/L (136-145) Potassium Level 3.6 MMOL/L (3.5-5.1) Chloride Level 104 MMOL/L (98-107) Carbon Dioxide Level 26 MMOL/L (21-32) Anion Gap 8 mmol/L (5-15) Blood Urea Nitrogen 3 mg/dL (7-18) L Creatinine 0.8 MG/DL (0.55-1.30) Estimat Glomerular Filtration Rate > 60 mL/min (>60) Glucose Level 106 MG/DL (74-106) Uric Acid 2.7 MG/DL (2.6-7.2) Calcium Level 8.5 MG/DL (8.5-10.1) Phosphorus Level 3.3 MG/DL (2.5-4.9) Magnesium Level 1.7 MG/DL (1.8-2.4) L Total Bilirubin 1.1 MG/DL (0.2-1.0) H Direct Bilirubin 0.4 MG/DL (0.0-0.3) H Gamma Glutamyl Transpeptidase 341 U/L (5-85) H Aspartate Amino Transf (AST/SGOT) 77 U/L (15-37) H Alanine Aminotransferase (ALT/SGPT) 59 U/L (12-78) Alkaline Phosphatase 54 U/L (46-116) Ammonia 45 umol/L (11-32) H Troponin I 0.017 ng/mL (0.000-0.056) C-Reactive Protein, Quantitative 2.2 mg/dL (0.00-0.90) H Pro-B-Type Natriuretic Peptide 93 pg/mL (0-125) Total Protein 6.6 G/DL (6.4-8.2) Albumin 2.8 G/DL (3.4-5.0) L Triglycerides Level 111 MG/DL (30-150) Cholesterol Level 132 MG/DL (< 200) LDL Cholesterol 100 mg/dL (<100) HDL Cholesterol 18 MG/DL (40-60) L Cholesterol/HDL Ratio 7.3 (3.3-4.4) H Lipase 159 U/L (73-393) Thyroid Stimulating Hormone (TSH) 1.956 uiU/mL (0.358-3.740) Current Medications Medications (Trade) Dose Ordered Sig/Socrates Route PRN Reason Start Time Stop Time Status Last Admin Dose Admin Chlordiazepoxide (Librium) 25 mg BID@0900,1300 NG 09/29/18 09:00 10/05/18 08:59 09/29/18 09:23 Chlordiazepoxide (Librium) 50 mg BEDTIME ORAL 09/29/18 21:00 10/04/18 20:59 Dextrose/ Electrolytes 1,000 ml @ 50 mls/hr Q20H IV 09/28/18 22:30 10/26/18 22:29 Diazepam (Valium) 10 mg Q2H PRN ORAL For Anxiety 09/28/18 21:45 10/04/18 15:44 Divalproex Sodium (Depakote Sprinkles) 250 mg BID GT 09/29/18 09:00 10/26/18 00:29 09/29/18 09:24 Famotidine (Pepcid) 20 mg BID ORAL 09/29/18 09:00 10/26/18 17:59 09/29/18 09:24 Folic Acid (Folate) 2 mg DAILY NG 09/29/18 09:00 10/22/18 08:59 09/29/18 09:24 Lactulose (Cephulac) 20 gm THREE TIMES A DAY NG 09/29/18 09:00 10/26/18 12:59 09/29/18 09:25 Levetiracetam (Keppra) 500 mg Q12HR NG 09/29/18 09:00 10/24/18 20:59 09/29/18 09:24 Levothyroxine Sodium (Synthroid) 112 mcg DAILY@0630 NG 09/29/18 06:30 10/27/18 06:29 09/29/18 06:28 Ondansetron HCl (Zofran) 4 mg Q6H PRN IVP Nausea & Vomiting 09/29/18 02:30 10/21/18 20:29 Potassium Chloride (K-Dur) 40 meq DAILY ORAL 09/29/18 09:00 10/23/18 08:59 09/29/18 09:23 Rifaximin (Xifaxan) 550 mg EVERY 12 HOURS NG 09/29/18 09:00 10/03/18 20:59 09/29/18 09:25 Thiamine HCl (Vitamin B1) 100 mg DAILY NG 09/29/18 09:00 10/25/18 08:59 09/29/18 09:25 Tyrell Yee MD September 29, 2018 13:57
[2018-09-29] MEDS: D5NS w/KCl 40mEq 1000ml 1,000 ML IV SCH (14:20)
--- NOTE | 2018-09-29 14:36 | General Progress Note ---
Assessment/Plan Status: doing well, stable Assessment/Plan: Assessment and Recs: # Pancytopenia -- multiple etiologies could be related to underlying liver disease, in this case is very likely related to etoh ABUse and myelosuppression of the bone marrow, very common to alcoholics --> peripheral smear has been ordered and does not show significant abnormalities --> Medications have been reviewed --> Continue to monitor for improvement, trend cbc --> Hep panel and HIV have been reviewed and are negative --> US abd has been reviewed, fatty infiltration is noted --> consider other causes, infections that could contribute --> Reverse isolation if ANC is <2000 --> Give neupogen if ANC <1000 --> Transfuse if hgb <7, with 1 unit prbc # Anemia of iron deficiency, ferritin is <50 --> As per gi eval as needed --> No evidence of hemolysis is noted, peripheral smear has been reviewed. --> Hgb goal >7. Transfuse prn. --> Medications have been reviewed --> iv iron x 5 days started # Alcohol withdrawal p/w pancreatitis --> Monitor for alcohol withdrawal seizure --> currently w/o seizures # Impending delirium tremens --> recommend cessation etoh # Hyponatremia --> trend Na as needed # Pancreatitis # HYperbilirubinemia as per above The timing of this note does not necessarily reflect the time of the patient was seen. Greatly appreciate consultation! Subjective Constitutional: Reports: no symptoms, chills, diaphoresis, fever, malaise, weakness, other HEENT: Denies: no symptoms, eye pain, blurred vision, tearing, double vision, ear pain, ear discharge, nose pain, nose congestion, throat pain, throat swelling, mouth pain, mouth swelling, other Cardiovascular: Denies: no symptoms, chest pain, edema, irregular heart rate, lightheadedness, palpitations, syncope, other Respiratory: Denies: no symptoms, cough, orthopnea, shortness of breath, SOB with excertion, SOB at rest, sputum, stridor, wheezing, other Gastrointestinal/Abdominal: Denies: no symptoms, abdomen distended, abdominal pain, black stools, tarry stools, blood in stool, constipated, diarrhea, difficulty swallowing, nausea, poor appetite, poor fluid intake, rectal bleeding , vomiting, other Genitourinary: Denies: no symptoms, burning, discharge, frequency, flank pain, hematuria, incontinence, pain, urgency, other Neurologic/Psychiatric: Denies: no symptoms, anxiety, depressed, emotional problems, headache, numbness, paresthesia, pre-existing deficit, seizure, tingling, tremors, weakness, other Endocrine: Denies: no symptoms, excessive sweating, flushing, intolerance to cold, intolerance to heat, increased hunger, increased thirst, increased urine, unexplained weight gain, unexplained weight loss, other Allergies: Coded Allergies: No Known Allergies (Unverified , 09/21/18) Subjective 09/23: no events noted, less altered, cbc reviewed 09/24: labs reviewed, no events, no f/c 09/26: off abx, agitated and ng was pulled out 09/27: ngt is in place, no fevers or chills noted, venofer continued 09/28: ngt has been pulled, seen by gi, no fevers or chills noted 09/29: no fevers chills or night sweats, seth bleeding, to get speech video study Objective Last 24 Hour Vital Signs Date Time Temp Pulse Resp B/P (MAP) Pulse Ox O2 Delivery O2 Flow Rate FiO2 09/29/18 12:00 98.1 69 17 99/67 (78) 99 09/29/18 08:00 98.0 80 17 117/73 (88) 96 09/29/18 04:00 97.4 68 18 108/59 (75) 96 09/29/18 00:00 98.2 68 18 94/53 (67) 98 09/28/18 22:57 Room Air 09/28/18 20:20 Room Air 09/28/18 20:00 98.4 84 20 113/66 (82) 98 09/28/18 16:00 97.1 84 20 100/65 (77) 96 Intake and Output 09/28/18 09/29/18 19:00 07:00 Intake Total 185 ml 100 ml Balance 185 ml 100 ml Intake Oral 50 ml IV Total 135 ml 100 ml # Voids 3 2 Laboratory Tests 09/29/18 05:38: White Blood Count 6.6, Red Blood Count 4.01L, Hemoglobin 10.0L, Hematocrit 32.5L , Mean Corpuscular Volume 81, Mean Corpuscular Hemoglobin 24.9L, Mean Corpuscular Hemoglobin Concent 30.6L, Red Cell Distribution Width 24.9H, Platelet Count 230, Mean Platelet Volume 10.3H, Neutrophils (%) (Auto) 65.0, Lymphocytes (%) (Auto) 17.0L, Monocytes (%) (Auto) 12.1H, Eosinophils (%) (Auto ) 2.9, Basophils (%) (Auto) 2.9H, Prothrombin Time 11.9H, Prothromb Time International Ratio 1.1, Activated Partial Thromboplast Time 28, Sodium Level 138, Potassium Level 3.6, Chloride Level 104, Carbon Dioxide Level 26, Anion Gap 8, Blood Urea Nitrogen 3L, Creatinine 0.8, Estimat Glomerular Filtration Rate > 60, Glucose Level 106, Uric Acid 2.7, Calcium Level 8.5, Phosphorus Level 3.3, Magnesium Level 1.7L, Total Bilirubin 1.1H, Direct Bilirubin 0.4H, Gamma Glutamyl Transpeptidase 341H, Aspartate Amino Transf (AST/SGOT) 77H, Alanine Aminotransferase (ALT/SGPT) 59, Alkaline Phosphatase 54, Ammonia 45H, Troponin I 0.017, C-Reactive Protein, Quantitative 2.2H, Pro-B-Type Natriuretic Peptide 93, Total Protein 6.6, Albumin 2.8L, Triglycerides Level 111, Cholesterol Level 132, LDL Cholesterol 100, HDL Cholesterol 18L, Cholesterol/ HDL Ratio 7.3H, Lipase 159, Thyroid Stimulating Hormone (TSH) 1.956 Height (Feet): 5 Height (Inches): 7.00 Weight (Pounds): 142 Objective Sp02 EP: reviewed, normal General Appearance: well appearing, nad, GCS 15 Head: normocephalic Eyes: bilateral eye normal inspection, bilateral eye PERRL, bilateral eye EOMI ENT: moist mucus membranes Neck: supple Respiratory: lungs clear, normal breath sounds Cardiovascular: regular rate, rhythm, 2+ radial (R) Gastrointestinal: normal inspection, normal bowel sounds, non tender, no mass, nd Musculoskeletal: back normal, gait/station normal, normal range of motion Neurologic: alert, oriented x3, electric 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
[2018-09-29] MEDS ORDERED: chlordiazePOXIDE 25mg Cap ORAL PRN (15:00)
--- NOTE | 2018-09-29 15:06 | NUR ---
CASE MANAGEMENT:REVIEW 09/29/18 SI: ALCOHOL WITHDRAWALS. SEIZURE PANCREATITIS 98.1 69 17 99/67 99% ON RA MAG-1.7 IS: IVF@50/HR THIAMINE NG QD LIBRIUM NG TID FOLATE NG QD LACTULOSE NG TID RIFAXIMIN NG Q12 KEPPRA NG Q12 DEPAKOTE NG Q12 IV VENOFER QHS K-DUR NG QD : MED/SURG STATUS 3 EAST DCP: FROM HOME PLAN: PHYSICAL THERAPIST TO EVAL FOR STABILITY
--- NOTE | 2018-09-29 15:30 | Progress Note ---
DATE: 09/28/2018 SUBJECTIVE: The patient is presented with anxiety, more re-directable. The Librium was decreased as well. The patient is tolerating the medications and was discontinued today . MENTAL STATUS EXAMINATION: The patient is alert, oriented to times self . Mood is anxious. Affect is blunted, congruent with mood. Thought process, there is a paucity of thought content. Thought content, no suicidal or homicidal ideation. Memory, concentration, and attention is impaired. Insight and judgment is impaired. ASSESSMENT: Alcohol withdrawal and alcohol dependence. PLAN: 1. We will continue Librium 25 mg in the morning and 25 mg in the afternoon and 50 mg at bedtime. 2. We will continue Ativan p.r.n. 3. We will continue the folate, continue thiamine. Nabil Burr M.D. DR: ANGELICA JOB#: [id number] CC:
[2018-09-29 16:00] VITALS: BP 100/51
--- NOTE | 2018-09-29 19:40 | NUR ---
NURSE NOTES: Report taken from GWENDOLYN Kwok. Patient is awake and in bed, A&Ox2. Patient is confused as to why he is here and when it is. He seems agitated, even with prior instruction patient continue to get out of bed without assistance. Continue to provide oral instruction to patient. IV site c/d/i and patent running D5 NS + 40KCl at 50mls/hr. Patient has some mottled skin in buttock area, no pain or open wounds, continue to monitor and have patient roll. Is tolerating new diet order well and is increasing oral intake. Bed in lowest position, call light within reach.
--- NOTE | 2018-09-29 19:42 | NUR ---
HAND-OFF: Report given to Yuriy SNOW, pt instable condition. - pt was able to ambulate to the restroom with staff assistance.
[2018-09-29 20:00] VITALS: BP 100/58
--- NOTE | 2018-09-29 20:54 | General Progress Note ---
Assessment/Plan Problem List: (1) Pancreatitis ICD Codes: K85.90 - Acute pancreatitis without necrosis or infection, unspecified SNOMED: 06310896 Qualifiers: Qualified Codes: K85.20 - Alcohol induced acute pancreatitis without necrosis or infection (2) Thrombocytopenia ICD Codes: D69.6 - Thrombocytopenia, unspecified SNOMED: 169051624 (3) Hyponatremia ICD Codes: E87.1 - Hypo-osmolality and hyponatremia SNOMED: 12369176 (4) Alcohol withdrawal seizure ICD Codes: F10.239 - Alcohol dependence with withdrawal, unspecified; R56.9 - Unspecified convulsions SNOMED: 930819481 Qualifiers: Qualified Codes: F10.239 - Alcohol dependence with withdrawal, unspecified; R56.9 - Unspecified convulsions (5) Alcohol withdrawal ICD Codes: F10.239 - Alcohol dependence with withdrawal, unspecified SNOMED: 056843120 Qualifiers: Qualified Codes: F10.239 - Alcohol dependence with withdrawal, unspecified (6) Anemia ICD Codes: D64.9 - Anemia, unspecified SNOMED: 030976672 (7) Alcoholic hepatitis ICD Codes: K70.10 - Alcoholic hepatitis without ascites SNOMED: 555832649 (8) Alcoholic pancreatitis ICD Codes: K85.20 - Alcohol induced acute pancreatitis without necrosis or infection SNOMED: 810583167 (9) Alcohol dependence ICD Codes: F10.20 - Alcohol dependence, uncomplicated SNOMED: 34997282 Status: doing well, stable Assessment/Plan: more alert reviewed chart failed swallow study peg per dr thao etoh pancreatitis improving Subjective ROS Limited/Unobtainable: Yes Allergies: Coded Allergies: No Known Allergies (Unverified , 09/21/18) Objective Last 24 Hour Vital Signs Date Time Temp Pulse Resp B/P (MAP) Pulse Ox O2 Delivery O2 Flow Rate FiO2 09/29/18 16:00 98.0 81 17 100/51 (67) 99 09/29/18 12:00 98.1 69 17 99/67 (78) 99 09/29/18 09:00 Room Air 09/29/18 08:00 98.0 80 17 117/73 (88) 96 09/29/18 04:00 97.4 68 18 108/59 (75) 96 09/29/18 00:00 98.2 68 18 94/53 (67) 98 09/28/18 22:57 Room Air Intake and Output 09/28/18 09/29/18 19:00 07:00 Intake Total 185 ml 100 ml Balance 185 ml 100 ml Intake Oral 50 ml IV Total 135 ml 100 ml # Voids 3 2 Laboratory Tests 09/29/18 05:38: White Blood Count 6.6, Red Blood Count 4.01L, Hemoglobin 10.0L, Hematocrit 32.5L , Mean Corpuscular Volume 81, Mean Corpuscular Hemoglobin 24.9L, Mean Corpuscular Hemoglobin Concent 30.6L, Red Cell Distribution Width 24.9H, Platelet Count 230, Mean Platelet Volume 10.3H, Neutrophils (%) (Auto) 65.0, Lymphocytes (%) (Auto) 17.0L, Monocytes (%) (Auto) 12.1H, Eosinophils (%) (Auto ) 2.9, Basophils (%) (Auto) 2.9H, Prothrombin Time 11.9H, Prothromb Time International Ratio 1.1, Activated Partial Thromboplast Time 28, Sodium Level 138, Potassium Level 3.6, Chloride Level 104, Carbon Dioxide Level 26, Anion Gap 8, Blood Urea Nitrogen 3L, Creatinine 0.8, Estimat Glomerular Filtration Rate > 60, Glucose Level 106, Uric Acid 2.7, Calcium Level 8.5, Phosphorus Level 3.3, Magnesium Level 1.7L, Total Bilirubin 1.1H, Direct Bilirubin 0.4H, Gamma Glutamyl Transpeptidase 341H, Aspartate Amino Transf (AST/SGOT) 77H, Alanine Aminotransferase (ALT/SGPT) 59, Alkaline Phosphatase 54, Ammonia 45H, Troponin I 0.017, C-Reactive Protein, Quantitative 2.2H, Pro-B-Type Natriuretic Peptide 93, Total Protein 6.6, Albumin 2.8L, Triglycerides Level 111, Cholesterol Level 132, LDL Cholesterol 100, HDL Cholesterol 18L, Cholesterol/ HDL Ratio 7.3H, Lipase 159, Thyroid Stimulating Hormone (TSH) 1.956 Height (Feet): 5 Height (Inches): 7.00 Weight (Pounds): 142 General Appearance: confused Neck: supple Cardiovascular: normal rate Respiratory/Chest: lungs clear Nitesh Melvin MD September 29, 2018 20:54
[2018-09-29] MEDS ORDERED: chlordiazePOXIDE 25mg Cap ORAL SCH (21:00)
[2018-09-30] VITALS: BP 98/61
--- NOTE | 2018-09-30 01:07 | Neurology Progress Note ---
Interim History Interim History ROS Limited/Unobtainable: Yes Complaints: AMS/ Weakness Events: Remains intermittently confused but improving Interim History This visit was conducted on September 29, [address] Gianluca Maya Review of Systems All Systems: reviewed and negative except above Objective Physical Exam Last Vital Signs Date Time Temp Pulse Resp B/P (MAP) Pulse Ox O2 Delivery O2 Flow Rate FiO2 09/30/18 00:00 98.2 67 18 98/61 (73) 97 09/29/18 21:00 Room Air 09/21/18 18:30 4.0 Laboratory Tests Test 09/29/18 05:38 White Blood Count 6.6 K/UL (4.8-10.8) Red Blood Count 4.01 M/UL (4.70-6.10) L Hemoglobin 10.0 G/DL (14.2-18.0) L Hematocrit 32.5 % (42.0-52.0) L Mean Corpuscular Volume 81 FL (80-99) Mean Corpuscular Hemoglobin 24.9 PG (27.0-31.0) L Mean Corpuscular Hemoglobin Concent 30.6 G/DL (32.0-36.0) L Red Cell Distribution Width 24.9 % (11.6-14.8) H Platelet Count 230 K/UL (150-450) Mean Platelet Volume 10.3 FL (6.5-10.1) H Neutrophils (%) (Auto) 65.0 % (45.0-75.0) Lymphocytes (%) (Auto) 17.0 % (20.0-45.0) L Monocytes (%) (Auto) 12.1 % (1.0-10.0) H Eosinophils (%) (Auto) 2.9 % (0.0-3.0) Basophils (%) (Auto) 2.9 % (0.0-2.0) H Prothrombin Time 11.9 SEC (9.30-11.50) H Prothromb Time International Ratio 1.1 (0.9-1.1) Activated Partial Thromboplast Time 28 SEC (23-33) Sodium Level 138 MMOL/L (136-145) Potassium Level 3.6 MMOL/L (3.5-5.1) Chloride Level 104 MMOL/L (98-107) Carbon Dioxide Level 26 MMOL/L (21-32) Anion Gap 8 mmol/L (5-15) Blood Urea Nitrogen 3 mg/dL (7-18) L Creatinine 0.8 MG/DL (0.55-1.30) Estimat Glomerular Filtration Rate > 60 mL/min (>60) Glucose Level 106 MG/DL (74-106) Uric Acid 2.7 MG/DL (2.6-7.2) Calcium Level 8.5 MG/DL (8.5-10.1) Phosphorus Level 3.3 MG/DL (2.5-4.9) Magnesium Level 1.7 MG/DL (1.8-2.4) L Total Bilirubin 1.1 MG/DL (0.2-1.0) H Direct Bilirubin 0.4 MG/DL (0.0-0.3) H Gamma Glutamyl Transpeptidase 341 U/L (5-85) H Aspartate Amino Transf (AST/SGOT) 77 U/L (15-37) H Alanine Aminotransferase (ALT/SGPT) 59 U/L (12-78) Alkaline Phosphatase 54 U/L (46-116) Ammonia 45 umol/L (11-32) H Troponin I 0.017 ng/mL (0.000-0.056) C-Reactive Protein, Quantitative 2.2 mg/dL (0.00-0.90) H Pro-B-Type Natriuretic Peptide 93 pg/mL (0-125) Total Protein 6.6 G/DL (6.4-8.2) Albumin 2.8 G/DL (3.4-5.0) L Triglycerides Level 111 MG/DL (30-150) Cholesterol Level 132 MG/DL (< 200) LDL Cholesterol 100 mg/dL (<100) HDL Cholesterol 18 MG/DL (40-60) L Cholesterol/HDL Ratio 7.3 (3.3-4.4) H Lipase 159 U/L (73-393) Thyroid Stimulating Hormone (TSH) 1.956 uiU/mL (0.358-3.740) General: well developed, well nourished Head: normocophalic Neck: no rigidity EENT: benign Neurologic Exam Mental Status: awake, alert, other - Currently waxing and waning in consciousness and orientation Language: other - Primarily French speaking and very softly spoken Cranial Nerve II: fundus normal, visual restrepo Cranial Nerves III, IV, : PERRLA, EOMI Cranial Nerve V: normal facial sensations Cranial Nerve VII: no facial asymmetry Cranial Nerve VIII: normal hearing Cranial Nerve IX: normal palate elevation Cranial Nerve X: no voice hoarseness Cranial Nerve XI: SCM symmetric Cranial Nerve XII: tongue midline Motor System: normal muscle tone, strength 5/5 Sensory: normal pinprick, normal light touch Coordination: normal finger to nose bilaterally, normal heel to singh bilaterally Deep Tendon Reflexes: 2+ bicep (L), 2+ bicep (R), 2+ tricep (L), 2+ tricep (R) , 2+ brachioradialis (L), 2+ brachioradialis (R), 2+ knee (L), 2+ knee (R), 2+ ankle (L), 2+ ankle (R) Reflexes: flexor plantar (L), flexor plantar (R); extensor plantar (L), extensor plantar (R) Impression/Recommendations Problems: (1) Hyponatremia (2) Alcohol withdrawal seizure (3) Alcoholic hepatitis (4) Alcoholic pancreatitis (5) Alcohol withdrawal (6) Acute alcohol intoxication delirium with moderate or severe use disorder (7) AMS (8) Acute hypoactive alcohol intoxication delirium without use disorder (9) Hypothyroidism Status: doing well, stable Recommendations More alert on exam with improved speech but still hypoactive - no longer on restraints Consider more daytime stim with PT Continue observation Recs: Recheck LFTS increase daytime stimulation and remove restraints GERDA Q 4 Hour neuro obs- Maintain sleep hygiene by making room dark and quiet in the evening. Frequently reorient the patient, if confused Encourage family/ friend visits PT/OT OOB in chair Discourage/ Avoid / Minimize use of benzodiazapenes , anticholinergics, or opioid narcotics. Soraya Donis N.P. September 30, 2018 01:07
--- NOTE | 2018-09-30 01:19 | Neurology Progress Note ---
Interim History Interim History ROS Limited/Unobtainable: No Complaints: AMS/ Weakness Events: This visit was performed on September 30, 2018 with Orville Maya MD Interim History More alert / interactive today but still quiet and partially confused about place. - reporting diarrhea making him feel unwell. Currently on Abx for this. Objective Physical Exam Last Vital Signs Date Time Temp Pulse Resp B/P (MAP) Pulse Ox O2 Delivery O2 Flow Rate FiO2 09/30/18 00:00 98.2 67 18 98/61 (73) 97 09/29/18 21:00 Room Air 09/21/18 18:30 4.0 Laboratory Tests Test 09/29/18 05:38 White Blood Count 6.6 K/UL (4.8-10.8) Red Blood Count 4.01 M/UL (4.70-6.10) L Hemoglobin 10.0 G/DL (14.2-18.0) L Hematocrit 32.5 % (42.0-52.0) L Mean Corpuscular Volume 81 FL (80-99) Mean Corpuscular Hemoglobin 24.9 PG (27.0-31.0) L Mean Corpuscular Hemoglobin Concent 30.6 G/DL (32.0-36.0) L Red Cell Distribution Width 24.9 % (11.6-14.8) H Platelet Count 230 K/UL (150-450) Mean Platelet Volume 10.3 FL (6.5-10.1) H Neutrophils (%) (Auto) 65.0 % (45.0-75.0) Lymphocytes (%) (Auto) 17.0 % (20.0-45.0) L Monocytes (%) (Auto) 12.1 % (1.0-10.0) H Eosinophils (%) (Auto) 2.9 % (0.0-3.0) Basophils (%) (Auto) 2.9 % (0.0-2.0) H Prothrombin Time 11.9 SEC (9.30-11.50) H Prothromb Time International Ratio 1.1 (0.9-1.1) Activated Partial Thromboplast Time 28 SEC (23-33) Sodium Level 138 MMOL/L (136-145) Potassium Level 3.6 MMOL/L (3.5-5.1) Chloride Level 104 MMOL/L (98-107) Carbon Dioxide Level 26 MMOL/L (21-32) Anion Gap 8 mmol/L (5-15) Blood Urea Nitrogen 3 mg/dL (7-18) L Creatinine 0.8 MG/DL (0.55-1.30) Estimat Glomerular Filtration Rate > 60 mL/min (>60) Glucose Level 106 MG/DL (74-106) Uric Acid 2.7 MG/DL (2.6-7.2) Calcium Level 8.5 MG/DL (8.5-10.1) Phosphorus Level 3.3 MG/DL (2.5-4.9) Magnesium Level 1.7 MG/DL (1.8-2.4) L Total Bilirubin 1.1 MG/DL (0.2-1.0) H Direct Bilirubin 0.4 MG/DL (0.0-0.3) H Gamma Glutamyl Transpeptidase 341 U/L (5-85) H Aspartate Amino Transf (AST/SGOT) 77 U/L (15-37) H Alanine Aminotransferase (ALT/SGPT) 59 U/L (12-78) Alkaline Phosphatase 54 U/L (46-116) Ammonia 45 umol/L (11-32) H Troponin I 0.017 ng/mL (0.000-0.056) C-Reactive Protein, Quantitative 2.2 mg/dL (0.00-0.90) H Pro-B-Type Natriuretic Peptide 93 pg/mL (0-125) Total Protein 6.6 G/DL (6.4-8.2) Albumin 2.8 G/DL (3.4-5.0) L Triglycerides Level 111 MG/DL (30-150) Cholesterol Level 132 MG/DL (< 200) LDL Cholesterol 100 mg/dL (<100) HDL Cholesterol 18 MG/DL (40-60) L Cholesterol/HDL Ratio 7.3 (3.3-4.4) H Lipase 159 U/L (73-393) Thyroid Stimulating Hormone (TSH) 1.956 uiU/mL (0.358-3.740) General: well developed, well nourished Head: normocophalic Neck: no rigidity EENT: benign Neurologic Exam Mental Status: awake, alert, other - Currently waxing and waning in consciousness and orientation Language: no aphasia, other - Primarily Senegalese speaking and very softly spoken Cranial Nerve II: fundus normal, visual restrepo, no papilledema Cranial Nerves III, IV, : PERRLA, EOMI Cranial Nerve V: normal facial sensations Cranial Nerve VII: no facial asymmetry Cranial Nerve VIII: normal hearing Cranial Nerve IX: normal palate elevation Cranial Nerve X: no voice hoarseness Cranial Nerve XI: SCM symmetric Cranial Nerve XII: tongue midline Motor System: normal muscle tone, strength 5/5 Sensory: normal pinprick, normal light touch Coordination: normal finger to nose bilaterally, normal heel to singh bilaterally Deep Tendon Reflexes: 2+ bicep (L), 2+ bicep (R), 2+ tricep (L), 2+ tricep (R) , 2+ brachioradialis (L), 2+ brachioradialis (R), 2+ knee (L), 2+ knee (R), 2+ ankle (L), 2+ ankle (R) Reflexes: flexor plantar (L), flexor plantar (R); extensor plantar (L), extensor plantar (R) Gait: stable Objective Currently ambulating without assistance to the bathroom - no weakness or focal deficits - more interactive and following commands today Impression/Recommendations Problems: (1) Hyponatremia (2) Alcohol withdrawal seizure (3) Alcoholic hepatitis (4) Alcoholic pancreatitis (5) Alcohol withdrawal (6) Acute alcohol intoxication delirium with moderate or severe use disorder (7) AMS (8) Acute hypoactive alcohol intoxication delirium without use disorder (9) Hypothyroidism Status: doing well, stable Recommendations More alert on exam with improved speech but still hypoactive - no longer on restraints Consider more daytime stim with PT Continue observation Ammonia still elevated with elevated LFTs Recs: Continue to track/ trend LFT/ Ammonia Maintain sleep hygiene by making room dark and quiet in the evening. Frequently reorient the patient, if confused Encourage family/ friend visits PT/OT OOB in chair Discourage/ Avoid / Minimize use of benzodiazapenes , anticholinergics, or opioid narcotics. Soraya Donis N.P. September 30, 2018 01:19
[2018-09-30 04:00] VITALS: BP 106/62
[2018-09-30 07:18] LABS: BASOPHILS % (AUTO) 2.6 % (0.0-2.0); EOSINOPHILS % (AUTO) 3.8 % (0.0-3.0); HEMATOCRIT 34.7 % (42.0-52.0); HEMOGLOBIN 10.6 G/DL (14.2-18.0); LYMPHOCYTES % (AUTO) 17.8 % (20.0-45.0); MEAN CORPUSCULAR VOLUME 82 FL (80-99); MONOCYTES % (AUTO) 11.9 % (1.0-10.0); NEUTROPHILS % (AUTO) 63.8 % (45.0-75.0); PLATELET COUNT 247 K/UL (150-450); RED BLOOD COUNT 4.23 M/UL (4.70-6.10); RED CELL DISTRIBUTION WIDTH 24.9 % (11.6-14.8); WHITE BLOOD COUNT 6.6 K/UL (4.8-10.8)
--- NOTE | 2018-09-30 07:28 | NUR ---
HAND-OFF: Report given to GWENDOLYN Kwok. Patient is asleep and in bed. No signs of distres, VS stable.
[2018-09-30 07:29] LABS: ANION GAP 8 mmol/L (5-15); BLOOD UREA NITROGEN 3 mg/dL (7-18); CALCIUM 8.4 MG/DL (8.5-10.1); CARBON DIOXIDE 25 MMOL/L (21-32); CHLORIDE 107 MMOL/L (98-107); CREATININE 0.8 MG/DL (0.55-1.30); POTASSIUM 3.6 MMOL/L (3.5-5.1); SODIUM 140 MMOL/L (136-145)
[2018-09-30 08:00] VITALS: BP 109/65
--- NOTE | 2018-09-30 08:00 | NUR ---
NURSE NOTES: Received report from Yuriy SNOW, pt a/a/o x4 laying in bed with no signs of distress or other issues at this time. IV on the left hand gauge #20 running D5 NS+40mEq@50ml/hr. pt is able to ambulate to the restroom with staff assistance. pt on a low fat, puree/nectar diet. pt is able to tolerated well with no signs of n/v. call light within reach, bed in lowest position. side rales up x2. plan: possible d/c today. I will f/u as needed.
[2018-09-30] MEDS: Lactulose 20gm/30ml UDC NG SCH ×2 (09:04→12:37)
[2018-09-30] MEDS: Depakote 125mg Sprinkles GT SCH (09:04)
[2018-09-30] MEDS: Thiamine 100mg tab NG SCH (09:04)
--- NOTE | 2018-09-30 09:25 | GI Progress Note ---
Assessment/Plan Problems: (1) Alcoholic pancreatitis ICD Codes: K85.20 - Alcohol induced acute pancreatitis without necrosis or infection SNOMED: 049758068 (2) Alcoholic hepatitis ICD Codes: K70.10 - Alcoholic hepatitis without ascites SNOMED: 237678607 (3) Anemia ICD Codes: D64.9 - Anemia, unspecified SNOMED: 555639422 (4) Alcohol withdrawal ICD Codes: F10.239 - Alcohol dependence with withdrawal, unspecified SNOMED: 143379564 Qualifiers: Qualified Codes: F10.239 - Alcohol dependence with withdrawal, unspecified (5) Pancreatitis ICD Codes: K85.90 - Acute pancreatitis without necrosis or infection, unspecified SNOMED: 08432906 Qualifiers: Qualified Codes: K85.20 - Alcohol induced acute pancreatitis without necrosis or infection (6) Thrombocytopenia ICD Codes: D69.6 - Thrombocytopenia, unspecified SNOMED: 251052308 (7) Hyponatremia ICD Codes: E87.1 - Hypo-osmolality and hyponatremia SNOMED: 42983483 (8) Alcoholic delirium ICD Codes: F10.231 - Alcohol dependence with withdrawal delirium SNOMED: 9836879 Status: stable Status Narrative Discussed with Dr. Wright Assessment/Plan Discriminant function calculated, no need for glucocorticoid therapy. Patient more alert and oriented. okay for DC per GI standpoint PEG canceled, patient is more alert and oriented today ST to advance diet to pured diet, still has mild dysphagia in which he would need a video swallow study and outpatient follow-up Folate PT evaluation monitor H&H, prn transfusions bowel regime ppi fu labs avoid alcohol trend LFTs lactulose and Xifaxan The patient was seen and examined at bedside and all new and available data was reviewed in the patients chart. I agree with the above findings, impression and plan. (Patient seen earlier today. Signature stamp does not reflect patient encounter time.). - Daniel Wright MD Subjective Gastrointestinal/Abdominal: Reports: no symptoms Objective Last 24 Hour Vital Signs Date Time Temp Pulse Resp B/P (MAP) Pulse Ox O2 Delivery O2 Flow Rate FiO2 09/30/18 08:00 97.8 63 19 109/65 (80) 98 09/30/18 04:00 98.1 63 17 106/62 (77) 95 09/30/18 00:00 98.2 67 18 98/61 (73) 97 09/29/18 21:00 Room Air 09/29/18 20:00 98.4 70 17 100/58 (72) 96 09/29/18 16:00 98.0 81 17 100/51 (67) 99 09/29/18 12:00 98.1 69 17 99/67 (78) 99 Intake and Output 09/29/18 09/30/18 18:59 06:59 Intake Total 850 ml 240 ml Balance 850 ml 240 ml Intake Oral 500 ml 240 ml IV Total 350 ml # Voids 3 # Bowel Movements 1 Laboratory Tests Test 09/30/18 06:18 White Blood Count 6.6 K/UL (4.8-10.8) Red Blood Count 4.23 M/UL (4.70-6.10) L Hemoglobin 10.6 G/DL (14.2-18.0) L Hematocrit 34.7 % (42.0-52.0) L Mean Corpuscular Volume 82 FL (80-99) Mean Corpuscular Hemoglobin 25.1 PG (27.0-31.0) L Mean Corpuscular Hemoglobin Concent 30.6 G/DL (32.0-36.0) L Red Cell Distribution Width 24.9 % (11.6-14.8) H Platelet Count 247 K/UL (150-450) Mean Platelet Volume 10.6 FL (6.5-10.1) H Neutrophils (%) (Auto) 63.8 % (45.0-75.0) Lymphocytes (%) (Auto) 17.8 % (20.0-45.0) L Monocytes (%) (Auto) 11.9 % (1.0-10.0) H Eosinophils (%) (Auto) 3.8 % (0.0-3.0) H Basophils (%) (Auto) 2.6 % (0.0-2.0) H Sodium Level 140 MMOL/L (136-145) Potassium Level 3.6 MMOL/L (3.5-5.1) Chloride Level 107 MMOL/L (98-107) Carbon Dioxide Level 25 MMOL/L (21-32) Anion Gap 8 mmol/L (5-15) Blood Urea Nitrogen 3 mg/dL (7-18) L Creatinine 0.8 MG/DL (0.55-1.30) Estimat Glomerular Filtration Rate > 60 mL/min (>60) Glucose Level 97 MG/DL (74-106) Calcium Level 8.4 MG/DL (8.5-10.1) L Height (Feet): 5 Height (Inches): 7.00 Weight (Pounds): 142 General Appearance: WD/WN, no apparent distress, alert, other - Patient able to ambulate Cardiovascular: normal rate Respiratory/Chest: normal breath sounds, no respiratory distress Abdominal Exam: normal bowel sounds, non tender, soft Extremities: normal range of motion, non-tender Objective Patient drastically more alert and oriented today Susan Burnette NP September 30, 2018 09:25
--- NOTE | 2018-09-30 10:36 | NUR ---
CASE MANAGEMENT:REVIEW 09/30/18 SI: ALCOHOL WITHDRAWALS. SEIZURE PANCREATITIS 97.8 63 19 109/65 98% ON RA H/H-106/34.7 IS: IVF@50/HR THIAMINE NG QD LIBRIUM NG TID FOLATE NG QD LACTULOSE NG TID RIFAXIMIN NG Q12 KEPPRA NG Q12 DEPAKOTE NG Q12 IV VENOFER QHS K-DUR NG QD : MED/SURG STATUS 3 EAST DCP: FROM HOME PLAN: PHYSICAL THERAPIST TO EVAL FOR STABILITY
--- NOTE | 2018-09-30 10:37 | Nephrology Progress Note ---
Assessment/Plan Problem List: (1) Hyponatremia (2) Pancreatitis (3) Alcohol withdrawal seizure (4) Anemia Assessment HypoNatremia Alcoholic liver disease and pancreatitis ETOH Withdraw Sz Lipase lowering Plan St eval librium thiamin monitor lytes and lipase Keppra Folate gastric support ? DC planning Subjective ROS Limited/Unobtainable: No Constitutional: Reports: malaise Objective Objective Last 24 Hour Vital Signs Date Time Temp Pulse Resp B/P (MAP) Pulse Ox O2 Delivery O2 Flow Rate FiO2 09/30/18 08:00 97.8 63 19 109/65 (80) 98 09/30/18 04:00 98.1 63 17 106/62 (77) 95 09/30/18 00:00 98.2 67 18 98/61 (73) 97 09/29/18 21:00 Room Air 09/29/18 20:00 98.4 70 17 100/58 (72) 96 09/29/18 16:00 98.0 81 17 100/51 (67) 99 09/29/18 12:00 98.1 69 17 99/67 (78) 99 Intake and Output 09/29/18 09/30/18 18:59 06:59 Intake Total 850 ml 240 ml Balance 850 ml 240 ml Intake Oral 500 ml 240 ml IV Total 350 ml # Voids 3 # Bowel Movements 1 Laboratory Tests 09/30/18 06:18: White Blood Count 6.6, Red Blood Count 4.23L, Hemoglobin 10.6L, Hematocrit 34.7L , Mean Corpuscular Volume 82, Mean Corpuscular Hemoglobin 25.1L, Mean Corpuscular Hemoglobin Concent 30.6L, Red Cell Distribution Width 24.9H, Platelet Count 247, Mean Platelet Volume 10.6H, Neutrophils (%) (Auto) 63.8, Lymphocytes (%) (Auto) 17.8L, Monocytes (%) (Auto) 11.9H, Eosinophils (%) (Auto ) 3.8H, Basophils (%) (Auto) 2.6H, Sodium Level 140, Potassium Level 3.6, Chloride Level 107, Carbon Dioxide Level 25, Anion Gap 8, Blood Urea Nitrogen 3L , Creatinine 0.8, Estimat Glomerular Filtration Rate > 60, Glucose Level 97, Calcium Level 8.4L Height (Feet): 5 Height (Inches): 7.00 Weight (Pounds): 142 General Appearance: no apparent distress Objective no change Mode Krishnan MD September 30, 2018 10:37
--- NOTE | 2018-09-30 11:11 | Infectious Diseases Prog Note ---
Assessment/Plan Assessment/Plan IMPRESSION: Acute pancreatitis, likely alcoholic anemia thrombocytopenia leukocytosis resolved alcohol withdrawal, hyponatremia Fatty liver/ cirrhosis R kidney angiomyolipoma. RECOMMENDATION: Continue Rifaximin & Lactulose Subjective ROS Limited/Unobtainable: Yes Constitutional: Reports: no symptoms Allergies: Coded Allergies: No Known Allergies (Unverified , 09/21/18) Objective Vital Signs Last 24 Hour Vital Signs Date Time Temp Pulse Resp B/P (MAP) Pulse Ox O2 Delivery O2 Flow Rate FiO2 09/30/18 08:00 97.8 63 19 109/65 (80) 98 09/30/18 04:00 98.1 63 17 106/62 (77) 95 09/30/18 00:00 98.2 67 18 98/61 (73) 97 09/29/18 21:00 Room Air 09/29/18 20:00 98.4 70 17 100/58 (72) 96 09/29/18 16:00 98.0 81 17 100/51 (67) 99 09/29/18 12:00 98.1 69 17 99/67 (78) 99 Height (Feet): 5 Height (Inches): 7.00 Weight (Pounds): 142 HEENT: normocephalic, mucous membranes moist Respiratory/Chest: lungs clear Cardiovascular: normal rate Abdomen: soft, non tender Extremities: no edema Neurologic/Psychiatric: alert, responsive Laboratory Tests Test 09/30/18 06:18 White Blood Count 6.6 K/UL (4.8-10.8) Red Blood Count 4.23 M/UL (4.70-6.10) L Hemoglobin 10.6 G/DL (14.2-18.0) L Hematocrit 34.7 % (42.0-52.0) L Mean Corpuscular Volume 82 FL (80-99) Mean Corpuscular Hemoglobin 25.1 PG (27.0-31.0) L Mean Corpuscular Hemoglobin Concent 30.6 G/DL (32.0-36.0) L Red Cell Distribution Width 24.9 % (11.6-14.8) H Platelet Count 247 K/UL (150-450) Mean Platelet Volume 10.6 FL (6.5-10.1) H Neutrophils (%) (Auto) 63.8 % (45.0-75.0) Lymphocytes (%) (Auto) 17.8 % (20.0-45.0) L Monocytes (%) (Auto) 11.9 % (1.0-10.0) H Eosinophils (%) (Auto) 3.8 % (0.0-3.0) H Basophils (%) (Auto) 2.6 % (0.0-2.0) H Sodium Level 140 MMOL/L (136-145) Potassium Level 3.6 MMOL/L (3.5-5.1) Chloride Level 107 MMOL/L (98-107) Carbon Dioxide Level 25 MMOL/L (21-32) Anion Gap 8 mmol/L (5-15) Blood Urea Nitrogen 3 mg/dL (7-18) L Creatinine 0.8 MG/DL (0.55-1.30) Estimat Glomerular Filtration Rate > 60 mL/min (>60) Glucose Level 97 MG/DL (74-106) Calcium Level 8.4 MG/DL (8.5-10.1) L Current Medications Medications (Trade) Dose Ordered Sig/Socrates Route PRN Reason Start Time Stop Time Status Last Admin Dose Admin Chlordiazepoxide (Librium) 25 mg Q8H PRN ORAL Agitation 09/29/18 15:00 10/06/18 14:59 Diazepam (Valium) 10 mg Q2H PRN ORAL For Anxiety 09/28/18 21:45 10/04/18 15:44 09/29/18 22:59 Divalproex Sodium (Depakote Sprinkles) 250 mg BID GT 09/29/18 09:00 10/26/18 00:29 09/30/18 09:04 Famotidine (Pepcid) 20 mg BID ORAL 09/29/18 09:00 10/26/18 17:59 09/30/18 09:04 Folic Acid (Folate) 2 mg DAILY NG 09/29/18 09:00 10/22/18 08:59 09/30/18 09:04 Lactulose (Cephulac) 20 gm THREE TIMES A DAY NG 09/29/18 09:00 10/26/18 12:59 09/30/18 09:04 Levetiracetam (Keppra) 500 mg Q12HR NG 09/29/18 09:00 10/24/18 20:59 09/30/18 09:04 Levothyroxine Sodium (Synthroid) 112 mcg DAILY@0630 NG 09/29/18 06:30 10/27/18 06:29 09/30/18 06:00 Ondansetron HCl (Zofran) 4 mg Q6H PRN IVP Nausea & Vomiting 09/29/18 02:30 10/21/18 20:29 Potassium Chloride (K-Dur) 40 meq DAILY ORAL 09/29/18 09:00 10/23/18 08:59 09/30/18 09:04 Rifaximin (Xifaxan) 550 mg EVERY 12 HOURS NG 09/29/18 09:00 10/03/18 20:59 09/30/18 09:04 Thiamine HCl (Vitamin B1) 100 mg DAILY NG 09/29/18 09:00 10/25/18 08:59 09/30/18 09:04 Tyrell Yee MD September 30, 2018 11:11
[2018-09-30 12:00] VITALS: BP 93/57
--- NOTE | 2018-09-30 13:21 | NUR ---
SWALLOW/SPEECH THERAPY NOTE: ALERT BUT NOT RECEPTIVE TO PO TRIALS. SAYS HE WANTS A PILL FOR HIS DIARRHEA SINCE BETTER BUT NOT RESOLVED (TOLD GWENDOLYN PRECIADO). GOALS FOR INTAKE HIGHLY VARIABLE 25 TO 100% FOR PUREED AND NECTAR THICK LIQUIDS. GOALS MET FOR NEW STAFF EDUCATED/TRAINED IN POSTED ASP PRECAUTIONS. NO REPORTED S/S OF ASPIRATION. PATIENT DOES NOT WANT DIET UPGRADE NOW. UNABLE TO COMPLETE MODIFIED BARIUM SWALLOW STUDY DUE TO SCHEDULE CONFLICTS. PLAN: CONTINUE WITH PLAN OF CARE IN SWALLOW EVAL REPORT AND WILL ADD MORE SHORT TERM GOALS POST MOD BARIUM SWALLOW STUDY. DO NOT HOLD UP D/C FOR THIS STUDY IT CAN BE COMPLETED AN OUTPT AT ANOTHER HOSPITAL. D/W GWENDOLYN PRECIADO
--- NOTE | 2018-09-30 13:42 | General Progress Note ---
Assessment/Plan Status: stable Assessment/Plan: Assessment and Recs: # Pancytopenia -- multiple etiologies could be related to underlying liver disease, in this case is very likely related to etoh ABUse and myelosuppression of the bone marrow, very common to alcoholics --> peripheral smear has been ordered and does not show significant abnormalities --> Medications have been reviewed --> Continue to monitor for improvement, trend cbc --> Hep panel and HIV have been reviewed and are negative --> US abd has been reviewed, fatty infiltration is noted --> consider other causes, infections that could contribute --> Reverse isolation if ANC is <2000 --> Give neupogen if ANC <1000 --> Transfuse if hgb <7, with 1 unit prbc # Anemia of iron deficiency, ferritin is <50 --> As per gi eval as needed --> No evidence of hemolysis is noted, peripheral smear has been reviewed. --> Hgb goal >7. Transfuse prn. --> Medications have been reviewed --> iv iron x 5 days completed # Alcohol withdrawal p/w pancreatitis --> Monitor for alcohol withdrawal seizure --> currently w/o seizures # Impending delirium tremens --> recommend cessation etoh # Hyponatremia --> trend Na as needed # Pancreatitis # HYperbilirubinemia as per above The timing of this note does not necessarily reflect the time of the patient was seen. Greatly appreciate consultation! Subjective Constitutional: Denies: no symptoms, chills, diaphoresis, fever, malaise, weakness, other HEENT: Denies: no symptoms, eye pain, blurred vision, tearing, double vision, ear pain, ear discharge, nose pain, nose congestion, throat pain, throat swelling, mouth pain, mouth swelling, other Respiratory: Denies: no symptoms, cough, orthopnea, shortness of breath, SOB with excertion, SOB at rest, sputum, stridor, wheezing, other Gastrointestinal/Abdominal: Denies: no symptoms, abdomen distended, abdominal pain, black stools, tarry stools, blood in stool, constipated, diarrhea, difficulty swallowing, nausea, poor appetite, poor fluid intake, rectal bleeding , vomiting, other Genitourinary: Denies: no symptoms, burning, discharge, frequency, flank pain, hematuria, incontinence, pain, urgency, other Neurologic/Psychiatric: Denies: no symptoms, anxiety, depressed, emotional problems, headache, numbness, paresthesia, pre-existing deficit, seizure, tingling, tremors, weakness, other Endocrine: Denies: no symptoms, excessive sweating, flushing, intolerance to cold, intolerance to heat, increased hunger, increased thirst, increased urine, unexplained weight gain, unexplained weight loss, other Hematologic/Lymphatic: Denies: no symptoms, anemia, easy bleeding, easy bruising, other Allergies: Coded Allergies: No Known Allergies (Unverified , 09/21/18) Subjective 09/23: no events noted, less altered, cbc reviewed 09/24: labs reviewed, no events, no f/c 09/26: off abx, agitated and ng was pulled out 09/27: ngt is in place, no fevers or chills noted, venofer continued 09/28: ngt has been pulled, seen by gi, no fevers or chills noted 09/29: no fevers chills or night sweats, seth bleeding, to get speech video study 09/30: a+o x4 , continue on ivf, doing better, no fevers, seen by renal, id Objective Last 24 Hour Vital Signs Date Time Temp Pulse Resp B/P (MAP) Pulse Ox O2 Delivery O2 Flow Rate FiO2 09/30/18 12:00 98.1 64 18 93/57 (69) 98 09/30/18 09:00 Room Air 09/30/18 08:00 97.8 63 19 109/65 (80) 98 09/30/18 04:00 98.1 63 17 106/62 (77) 95 09/30/18 00:00 98.2 67 18 98/61 (73) 97 09/29/18 21:00 Room Air 09/29/18 20:00 98.4 70 17 100/58 (72) 96 09/29/18 16:00 98.0 81 17 100/51 (67) 99 Intake and Output 09/29/18 09/30/18 18:59 06:59 Intake Total 850 ml 240 ml Balance 850 ml 240 ml Intake Oral 500 ml 240 ml IV Total 350 ml # Voids 3 # Bowel Movements 1 Laboratory Tests 09/30/18 06:18: White Blood Count 6.6, Red Blood Count 4.23L, Hemoglobin 10.6L, Hematocrit 34.7L , Mean Corpuscular Volume 82, Mean Corpuscular Hemoglobin 25.1L, Mean Corpuscular Hemoglobin Concent 30.6L, Red Cell Distribution Width 24.9H, Platelet Count 247, Mean Platelet Volume 10.6H, Neutrophils (%) (Auto) 63.8, Lymphocytes (%) (Auto) 17.8L, Monocytes (%) (Auto) 11.9H, Eosinophils (%) (Auto ) 3.8H, Basophils (%) (Auto) 2.6H, Sodium Level 140, Potassium Level 3.6, Chloride Level 107, Carbon Dioxide Level 25, Anion Gap 8, Blood Urea Nitrogen 3L , Creatinine 0.8, Estimat Glomerular Filtration Rate > 60, Glucose Level 97, Calcium Level 8.4L Height (Feet): 5 Height (Inches): 7.00 Weight (Pounds): 142 Objective Sp02 EP: reviewed, normal General Appearance: well appearing, nad, GCS 15 Head: normocephalic Eyes: bilateral eye normal inspection, bilateral eye PERRL, bilateral eye EOMI ENT: moist mucus membranes Neck: supple Respiratory: lungs clear, normal breath sounds Cardiovascular: regular rate, rhythm, 2+ radial (R) Gastrointestinal: normal inspection, normal bowel sounds, non tender, no mass, nd Musculoskeletal: back normal, gait/station normal, normal range of motion Neurologic: alert, oriented x3, wild life manager III-XII nml as tested Psychiatric: anxious Skin: normal inspection, warm/dry Avery Bell MD September 30, 2018 13:42
--- NOTE | 2018-09-30 14:30 | NUR ---
P.T NOTE: PATIENT IS BASELINE INDEPENDENT WITH FUNCTIONAL MOBILITIES AND GAIT/LOCOMOTION. CURRENT FUNCTIONAL STATUS DOES NOT REQUIRE SKILLED P.T SERVICE AT THIS TIME. D/C P.T SERVICES. THANK YOU FOR THIS REFERRAL. Addendum: 09/30/18 at 1431 by YUMIKO RAJAN PT Amended: Links added.
--- NOTE | 2018-09-30 15:45 | NUR ---
NURSE NOTES: Received order to d/c home. discharge instructions and belongings given to patient and pts mother. IV removed prior to d/c. pt and pt's mother verbalized understanding that pt needed to fallow up with his PCP, GI and Alex doctor. they stated that they will look for a doctor to see him. pt left the floor via w/c, with no signs of distress or other issues at this time. pt's mother and family will provide transportation.
--- NOTE | 2018-09-30 23:15 | Progress Note ---
DATE: 09/30/2018 SUBJECTIVE: The patient is presenting with anxiety, depression, decreased energy, insomnia. No suicidal or homicidal ideations. Symptoms are improved. MENTAL STATUS EXAM: Alert and oriented times self, place, and situation. Mood is dysphoric. Affect is constricted, congruent with mood. Thought process is concrete. Thought content, no suicidal or homicidal ideations. Cognition is impaired. ASSESSMENT: Alcohol withdrawal, alcohol dependence. PLAN: 1. We will continue current medications. 2. The patient may be discharged when medically cleared. Nabil Burr M.D. DR: YULY JOB#: [id number] CC:
--- NOTE | 2018-10-01 16:51 | Discharge Summary ---
Discharge Summary Discharge Summary _ DATE OF ADMISSION: 09/21/2018 DATE OF DISCHARGE: 09/30/2018 DISCHARGED BY: Dr. Nitesh Reynolds CONSULTANTS: Dr. Mode Maya [facility] COURSE: Patient is a 58-year-old male, who was brought to ED via EMS due to weakness and tremors. Patient is alcoholic and stopped drinking alcohol 3 days prior. He had withdrawal seizures. Patient was confused. Patient initially had vomiting and abdominal pain. He denied rectal bleeding, denied hematemesis. Denied shortness of breath. Denied cough fever or chills. He has medical history significant for alcohol abuse, anemia and history of pancreatitis. On evaluation at the ED, patient was tachycardic. Blood work showed WBC of 15. Hemoglobin 11, hematocrit 36, platelet count of 89. Sodium was 122. Potassium 3.4. Chloride 83. Anion gap 29. BUN 5 and creatinine 1.3. LFTs were elevated. Lipase was 1124. Troponin was negative. Serum alcohol was less than 3. Urinalysis showed 2+ protein, 2+ ketones, 3+ blood, 1+ bilirubin, 1+ leukocyte esterase, 5-10 RBC, and 2-4 WBC. Urine toxicology screen was negative. EKG showed sinus tachycardia. Chest x-ray did not show any acute disease. Head CT showed motion infarct with no obvious bleed or mass-effect. There was no infectious etiology identified to account for elevated WBC. Antibiotics were not started. Patient was tremulous and appeared to be at risk for delirium tremens. While being evaluated at ED, he had a generalized tonic- clonic seizure and ended prior to Ativan being given. He was also given Keppra. He was then admitted for alcohol withdrawal. He was initially placed on n.p.o. He was given IV hydration. He was given folic acid, thiamine and Librium. He was given gastric support. GI was consulted for alcoholic pancreatitis. Patient did not require glucocorticoid therapy. Diet was advanced. He was counseled on alcohol cessation. He was noted to have pancytopenia, could be related to underlying liver disease , likely related to alcohol abuse and myelosuppression of the bone marrow. Hepatitis and HIV panel were negative. He had low serum iron. He was given IV Venofer. Patient had fever. T-max 100 degrees. ID was consulted. He was continued on Zosyn. He eventually defervesced. He was severely agitated. Patient was spitting out medications. He was awake all night. Psychiatrist was consulted. Librium was increased to 50 mg 3 times daily. He was given a cocktail of sedatives and was placed on restraints for safety. Lipase normalized. He was started on diet. However, swallow evaluation done recommended nonoral feeding. Ammonia levels were elevated. He was given lactulose and Xifaxan. Patient was a scheduled for PEG. However, procedure was canceled as patient was more alert and oriented. Speech therapy advanced diet to pured. Patient has mild dysphagia and would need a video swallow study which can be done as outpatient. He was given PT mobility. Patient was baseline independent with functional mobilities and gait/locomotion. He was eventually discharged home. FINAL DIAGNOSES: Alcoholic pancreatitis Alcohol withdrawal seizure Alcohol withdrawal Alcohol dependence Pancytopenia Anemia of iron deficiency Hyponatremia Hyperbilirubinemia Fatty liver/cirrhosis Right kidney angiomyolipoma Alcoholic delirium Thrombocytopenia Hypothyroidism DISPOSITION: Patient was discharged home. DISCHARGE INSTRUCTIONS: Follow-up in a week. I have been assigned to complete a discharge summary on this account, I was not involved with the patient's management. Tete Badillo NP October 01, 2018 16:51
== END 2018-09-30 15:37 | disposition home or self-care (01) | DRG 775 ==
LOC: EDBD 14:14 → EMR 15:52 → 2E 15:59 → EDBEDREQ 17:13 → 2E 09-24 16:09 → 3E 09-28 21:41
DX: F10.231 Alcohol dependence with withdrawal delirium (principal); G92 Toxic encephalopathy; K85.20 Alcohol induced acute pancreatitis without necrosis or infection; D61.818 Other pancytopenia; R13.10 Dysphagia, unspecified; D69.6 Thrombocytopenia, unspecified; K70.0 Alcoholic fatty liver; K70.10 Alcoholic hepatitis without ascites; E87.1 Hypo-osmolality and hyponatremia; D17.71 Benign lipomatous neoplasm of kidney; G40.89 Other seizures; D50.9 Iron deficiency anemia, unspecified; D63.8 Anemia in other chronic diseases classified elsewhere; K70.30 Alcoholic cirrhosis of liver without ascites; E03.9 Hypothyroidism, unspecified
CPT/HCPCS: 36415; 70450; 71045; 74018; 76700; 80048; 80053; 80061; 80076; 80299; 80307; 80329; 81003; 82140; 82247; 82248; 82550; 82607; 82728; 82746; 82977; 83010; 83036; 83540; 83550; 83690; 83735; 83880; 84100; 84443; 84484; 84550; 85007; 85025; 85044; 85384; 85610; 85730; 86140; 86703; 86705; 86709; 86803; 87340; 93005; 96361; 96365; 96368; 96375; 96376; 99285; J8499